=== PATIENT | female | born 1955 | race African-American/Black ===

== ENCOUNTER → 2017-01-22 | Outpatient (CLI) | payer OTHER ==
[2017-01-22 09:35] LABS: BASO % 1 % (0-3); EOS % 1 % (0-3); HEMATOCRIT 40.1 % (36.0-47.0); HEMOGLOBIN 13.4 g/dL (12.0-15.5); LYMPH # 1.3 x10^3/uL (1.0-4.8); LYMPH % 23 % (24-48); MEAN CORPUSCULAR HEMOGLOBIN 27 pg (25-35); MEAN CORPUSCULAR HGB CONC 34 g/dL (31-37); MEAN CORPUSCULAR VOLUME 81 fL (79-100); MONO % 4 % (0-9); NEUT % 72 % (31-73); PLATELET COUNT 247 x10^3/uL (140-400); RED BLOOD COUNT 4.95 x10^6/uL (3.50-5.40); RED CELL DISTRIBUTION WIDTH 14.6 % (11.5-14.5); WHITE BLOOD COUNT 5.5 x10^3/uL (4.0-11.0)
[2017-01-22 10:05] LABS: ALBUMIN 4.2 g/dL (3.4-5.0); ALBUMIN/GLOBULIN RATIO 0.9 (1.0-1.7); C-REACTIVE PROTEIN 1.6 mg/L (0-3.3); CALCIUM 9.6 mg/dL (8.5-10.1); GFR 68.4; POTASSIUM 3.7 mmol/L (3.5-5.1); TOTAL BILIRUBIN 0.3 mg/dL (0.2-1.0); TOTAL PROTEIN 8.8 g/dL (6.4-8.2)
== END | disposition home or self-care (01) ==
LOC: SPEC 09:20
PROVIDERS: ATTEND Internal Medicine Rheumatology
DX: Z79.899 Other long term (current) drug therapy (principal)
CPT/HCPCS: 36415; 80053; 85027; 85651; 86140

== ENCOUNTER → 2017-02-02 | Outpatient (CLI) | payer OTHER ==
[~2017-02-02] MED LIST: FOLI1TAB16 PO; HYDR200T5 PO; LISI1TAB3 PO; METH2.5T PO; NIFE10CA2 PO
[2017-02-05 16:15] LABS: ALPHA 1 0.1 g/dL (0.0-0.4); ALPHA 2 0.5 g/dL (0.4-1.0); BETA 0.9 g/dL (0.7-1.3); GAMMA 1.8 g/dL (0.4-1.8); M-SPIKE Not Observed g/dL (Not Observed); PROTEIN TOTAL 7.4 g/dL (6.0-8.5)
== END | disposition home or self-care (01) ==
LOC: SPEC 07:27
PROVIDERS: ATTEND Family Medicine
DX: R77.9 Abnormality of plasma protein, unspecified (principal)
CPT/HCPCS: 36415; 84165

== ENCOUNTER 2017-02-06 18:13 | Inpatient (IN) | payer OTHER ==
[~2017-02-06] VITALS: Ht 167.6 cm; Wt 67.3 kg
[2017-02-06] MEDS ORDERED: NITROGLYCERIN SUBLINGUAL 0.4 MG BOTTLE OF 25. SL PRN (18:45)
[2017-02-06] MEDS ORDERED: FENTANYL PF 100 MCG/2 ML VIAL. IV PRN (18:45)
[2017-02-06 18:50] LABS: BASO % 1 % (0-3); EOS % 2 % (0-3); HEMOGLOBIN 11.1 g/dL (12.0-15.5); LYMPH # 1.8 x10^3/uL (1.0-4.8); LYMPH % 32 % (24-48); MEAN CORPUSCULAR HEMOGLOBIN 28 pg (25-35); MEAN CORPUSCULAR HGB CONC 33 g/dL (31-37); MEAN CORPUSCULAR VOLUME 85 fL (79-100); MONO % 5 % (0-9); NEUT % 61 % (31-73); PLATELET COUNT 252 x10^3/uL (140-400); RED CELL DISTRIBUTION WIDTH 14.6 % (11.5-14.5); WHITE BLOOD COUNT 5.6 x10^3/uL (4.0-11.0)
[2017-02-06 18:53] LABS: POTASSIUM ISTAT 3.6 mmol/L (3.5-5.0)
[2017-02-06 18:59] LABS: PROTHROMBIN TIME PATIENT 12.9 SEC (11.7-14.0)
--- NOTE | 2017-02-06 19:17 | RAD ---
PROCEDURE CT brain without contrast HISTORY throbbing headaches and left arm tingling x 3 days, no priors TECHNIQUE Axial CT images were obtained of the brain without contrast. One or more of the following individualized dose reduction techniques were utilized for this examination: 1. Automated exposure control; 2. Adjustment of the mA and/or kV according to patient size; 3. Use of iterative reconstruction technique.One or more of the following individualized dose reduction techniques were utilized for this examination: 1. Automated exposure control; 2. Adjustment of the mA and/or kV according to patient size; 3. Use of iterative reconstruction technique. COMPARISON None FINDINGS There is no intracranial hemorrhage or mass. Ventricles are normal in size. There is no shift of the midline. An acute CVA is not identified. Visualized sinuses are clear. There are no abnormal areas of increased or decreased attenuation. IMPRESSION 1. No intracranial hemorrhage or mass or acute finding noted. Electronically signed by: Florian Nguyen MD (Feb 06, 2017 19:15:14)
[2017-02-06] MEDS ORDERED: IOHEXOL 300 MG/ML 75 ML VIAL IV ONE (20:00)
[2017-02-06] MEDS ORDERED: ASPIRIN 325 MG TABLET PO ONE (20:00)
--- NOTE | 2017-02-06 20:21 | ED.ADGEN ---
Past Medical History Past Medical History: Diverticulitis, Hypertension, Other Additional Past Medical Histor: LUPUS Past Surgical History: Hip Replacement, Hysterectomy, Other Additional Past Surgical Histo: RIGHT HIP , DNC, HERNIA REPAIR Alcohol Use: Occasionally Drug Use: None Adult General Chief Complaint Chief Complaint: CHEST PAIN HPI HPI Patient is a 61 year old woman, history of lupus, diverticulitis, who presents to the emergency department with complaint of left arm and chest pain, and headache associated with lightheadedness and dizziness. Patient states that over the past several days she's been experiencing a throbbing pain in her left arm, left chest, in her head, which she describes as a "whooshing" sensation in her ears, associated with lightheadedness. Denies any nausea, describes the pain in her arm and chest is a throbbing sensation and a tightening sensation, denies any palpitations, denies shortness of breath, any nausea, any vomiting, any fevers or chills, any focal weakness numbness or tingling. Denies any similar symptoms previously. Patient has a remote history of a DVT which is believed to be due to her underlying lupus that occurred in 1998. Is not currently on any anticoagulation. She had a stress test performed approximately 13 years ago. Has no history of cardiac disease. Denies any injuries, denies any syncope, states that she was feeling very dizzy, with worsening of the chest and arm pain that occurred this afternoon, the proper to come to the ED. Pain is been coming and going over the past several days. Some nasal congestion, Review of Systems Review of Systems Constitutional: Denies fever or chills. [] Eyes: Denies change in visual acuity. [] HENT: Denies nasal congestion or sore throat. [] Respiratory: Denies cough or shortness of breath. [] Cardiovascular: No edema, chest pain and left arm pain. GI: Denies abdominal pain, nausea, vomiting, bloody stools or diarrhea. [] : Denies dysuria. [] Musculoskeletal: Denies back pain or joint pain. [] Integument: Denies rash. [] Neurologic: Denies headache, focal weakness or sensory changes. [] Dizziness and frontal headache. Endocrine: Denies polyuria or polydipsia. [] Lymphatic: Denies swollen glands. [] Psychiatric: Denies depression or anxiety. [] Current Medications Current Medications Current Medications Medications (Trade) Dose Ordered Sig/Codi Start Time Stop Time Status Last Admin Dose Admin Aspirin (Carlos Aspirin) 325 mg 1X ONCE 02/06/17 20:00 02/06/17 20:01 DC 02/06/17 20:03 325 MG Fentanyl Citrate (Fentanyl 2ml Vial) 25 mcg PRN Q15MIN PRN 02/06/17 18:45 02/07/17 18:44 02/06/17 20:03 25 MCG Iohexol (Omnipaque 300 Mg/ml) 75 ml 1X ONCE 02/06/17 20:00 02/06/17 20:01 DC 02/06/17 20:12 75 ML Nitroglycerin (Nitrostat) 0.4 mg PRN Q5MIN PRN 02/06/17 18:45 02/07/17 18:44 Allergies Allergies Allergies Coded Allergies Type Severity Reaction Last Updated Verified Penicillins Allergy Unknown 02/06/17 Yes Physical Exam Physical Exam Constitutional: Well developed, well nourished, no acute distress, non-toxic appearance. [] HENT: Normocephalic, atraumatic, bilateral external ears normal, oropharynx moist, no oral exudates, nose normal. [] Eyes: PERRLA, EOMI, conjunctiva normal, no discharge. [] Neck: Normal range of motion, no tenderness, supple, no stridor. [] Cardiovascular:Heart rate regular rhythm, no murmur, S1, S2, rubs or gallops. [] Lungs & Thorax: Bilateral breath sounds clear to auscultation, no wheezing, rhonchi, rales. No chest tenderness or crepitus. Unable to reproduce symptoms with palpation. [] Abdomen: Bowel sounds normal, soft, no tenderness, no masses, no pulsatile masses. [] Skin: Warm, dry, no erythema, no rash. [] Back: No tenderness, no CVA tenderness. [] Extremities: No tenderness, no cyanosis, no clubbing, ROM intact, no edema. Negative Homans sign. [] Neurologic: Alert and oriented X 3, normal motor function, normal sensory function, no focal deficits noted. [Normal neurologic examination. Psychologic: Affect normal, judgement normal, mood normal. [] Current Patient Data Vital Signs Vital Signs Date Time Temp Pulse Resp B/P Pulse Ox O2 Delivery O2 Flow Rate FiO2 02/06/17 20:03 Room Air 02/06/17 19:43 70 147/74 100 02/06/17 18:16 98.1 18 98.1 Lab Values Laboratory Tests Test 02/06/17 18:39 02/06/17 18:42 02/06/17 18:44 02/06/17 18:51 White Blood Count 5.6x10^3/uL (4.0-11.0) Red Blood Count 4.00x10^6/uL (3.50-5.40) Hemoglobin 11.1g/dL (12.0-15.5) L Hematocrit 34.0% (36.0-47.0) L Mean Corpuscular Volume 85fL (79-100) Mean Corpuscular Hemoglobin 28pg (25-35) Mean Corpuscular Hemoglobin Concent 33g/dL (31-37) Red Cell Distribution Width 14.6% (11.5-14.5) H Platelet Count 252x10^3/uL (140-400) Neutrophils (%) (Auto) 61% (31-73) Lymphocytes (%) (Auto) 32% (24-48) Monocytes (%) (Auto) 5% (0-9) Eosinophils (%) (Auto) 2% (0-3) Basophils (%) (Auto) 1% (0-3) Neutrophils # (Auto) 3.4x10^3uL (1.8-7.7) Lymphocytes # (Auto) 1.8x10^3/uL (1.0-4.8) Monocytes # (Auto) 0.3x10^3/uL (0.0-1.1) Eosinophils # (Auto) 0.1x10^3/uL (0.0-0.7) Basophils # (Auto) 0.0x10^3/uL (0.0-0.2) Prothrombin Time 12.9SEC (11.7-14.0) Prothrombin Time INR 1.0 (0.8-1.1) Troponin I Quantitative 0.033ng/mL (0.000-0.055) CL-Wka-Z-Type Natriuretic Peptide 43pg/mL (0-124) Lipase 206U/L (73-393) POC Troponin I 0.00ng/ml (<0.08) POC Hemoglobin 11.9g/dL (12-15) L POC Hematocrit 35% (36-40) L POC Sodium 138mmol/L (135-145) POC Potassium 3.6mmol/L (3.5-5.0) POC Chloride 104mmol/L (98-110) POC Total CO2 21mmol/L (23-32) L Anion Gap 17mmol/L (6-14) H POC Blood Urea Nitrogen 19mg/dL (8-26) POC Creatinine 0.7mg/dL (0.5-1.4) Glucose Level 88mg/dL (70-99) POC Ionized Calcium (John) 1.10mmol/L (1.13-1.32) L D-Dimer (Perla) 0.52ug/mlFEU (0.00-0.50) H Laboratory Tests 02/06/17 18:39 Laboratory Tests 02/06/17 18:44 EKG EKG EC: Sinus rhythm, heart rate 68 bpm, upright axis, QTC of 400, TX 170, QRS of 84, contour abnormalities noted in the lateral leads, possible left ventricle hypertrophy, no prior for comparison. Abnormal ECG, does not meet STEMI criteria. As interpreted by me. [] Radiology/Procedures Radiology/Procedures Chest X-ray: One view: Normal cardiopulmonary silhouette, mild hyperinflation, no pneumothorax, no trichomoniasis or effusions, no soft tissue or bony abnormalities identified. [] Impressions: [facility] [id number] [place] [address] IMAGING REPORT Signed PATIENT: MART TAVERAS ACCOUNT: [id number] : 1955 LOCATION: ER AGE: 61 SEX: F EXAM STATUS: REG ER ORD. PHYSICIAN: JOSE PRABHAKAR DO REASON: HOYOS/Dizziness PROCEDURE: HEAD WO CONTRAST PROCEDURE CT brain without contrast HISTORY throbbing headaches and left arm tingling x 3 days, no priors TECHNIQUE Axial CT images were obtained of the brain without contrast. One or more of the following individualized dose reduction techniques were utilized for this examination: 1. Automated exposure control; 2. Adjustment of the mA and/or kV according to patient size; 3. Use of iterative reconstruction technique.One or more of the following individualized dose reduction techniques were utilized for this examination: 1. Automated exposure control; 2. Adjustment of the mA and/or kV according to patient size; 3. Use of iterative reconstruction technique. COMPARISON None FINDINGS There is no intracranial hemorrhage or mass. Ventricles are normal in size. There is no shift of the midline. An acute CVA is not identified. Visualized sinuses are clear. There are no abnormal areas of increased or decreased attenuation. IMPRESSION 1. No intracranial hemorrhage or mass or acute finding noted. Electronically signed by: Florian Nguyen MD (Feb 06, 2017 19:15:14) DICTATED and SIGNED BY: FLORIAN NGUYEN MD DATE: 02/06/171914 CC: NOMI DAVIS; JOSE PRABHAKAR DO ~ Course & Med Decision Making Course & Med Decision Making Pertinent Labs and Imaging studies reviewed. (See chart for details) Due to patient's history of lupus and DVT, d-dimer was ordered along with chest x-ray, ECG, and laboratory studies including troponin. D-dimer was slightly elevated 0.5 to, therefore if discussion with patient, CT of the chest was ordered to rule out PE. This was negative for PE or other abnormality. Patient' s ECG rhythm evidence of left hypertrophy, but no other acutely concerning findings. Troponin was negative. I did discuss these findings with patient, based on her persistent symptoms, and worsening symptoms, as she is not previously had a cardiac evaluation for the past more than 10 years, she is agreeable for admission to the hospital for cardiac evaluation and continued monitoring. Findings as above discussed with Dr. Cee of internal medicine, patient accepted to his service as a full admission to the medical telemetry floor, consultation placed for Dr. Cagle of cardiology. Bridge orders entered per discussion. Patient remained stable and comfortable during her ED course. Dragon Disclaimer Dragon Disclaimer This electronic medical record was generated, in whole or in part, using a voice recognition dictation system. Departure Impression: Primary Impression: Chest pain Disposition: ADMITTED INPATIENT Admitting Physician: Wendy Cee Condition: IMPROVED JOSE PRABHAKAR DO Feb 06, 2017 20:21
--- NOTE | 2017-02-06 20:53 | RAD ---
PROCEDURE CT angiogram chest. HISTORY Chest pressure and left arm tingling for 3 days. Previous DVT. Lupus. TECHNIQUE Axial images and coronal and sagittal maximum intensity projection re-formatted images are provided. 75 milliliters of intravenous Omnipaque 300 was administered without complication. One or more of the following individualized dose reduction techniques were utilized for this exam: 1. Automated exposure control. 2. Adjustment of the mA and/or kV according to patient's size. 3. Use of iterative reconstruction technique. COMPARISON None provided. FINDINGS The contrast bolus is satisfactory. There is no filling defect to suggest pulmonary embolism. There is minimal atheromatous disease in the abdominal aorta without aneurysm. The heart is not enlarged. There is no hilar or mediastinal adenopathy. There are calcified right hilar lymph nodes. Central airways are patent. There is dependent atelectasis. There is no pleural effusion. There is no consolidation. There is minimal presumed apical scarring. 5 millimeter pulmonary nodule is noted along the minor fissure on image 94. Calcified granuloma is noted in the right middle lobe. There are minimal degenerative changes in the spine. IMPRESSION 1. Negative for pulmonary embolism. 2. Pulmonary nodule for which follow up per Fleischner society would be recommended. Per 2017 guidelines, low risk patient requires no additional workup. High risk patient recommendations are consideration of 12 month follow-up. Electronically signed by: Mathew Guardado MD (Feb 06, 2017 20:51:37)
[2017-02-06] MEDS ORDERED: MORPHINE IR 15 MG TABLET PO PRN (23:15)
--- NOTE | 2017-02-06 23:19 | PDOC1 ---
History and Physical Date of Admission Date of Admission DATE: 02/06/17 TIME: 23:14 Identification/Chief Complaint Chief Complaint headache, chest pain, arm pain Source Source: Chart review, Patient History of Present Illness History of Present Illness Ms De Los Santos is a 61 year old woman admti from emergency department with complaint of left arm and chest pain, and headache. HOYOS has been new, "throbbing" and when HOYOS on, she has had "whooshing" sound in her left ear, and left arm pain and tightness. Left arm feels like it has a BP cuff on, may be worsened with exertion and associated with lightheadedness and dizziness. 3 days of problems, no new stress, maybe worse when out. 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 Thakur remote DVT due to lupus that occurred in 1998. normal stress test 13 years ago. Past Medical History Past Medical History , history of lupus, diverticulitis, htn Cardiovascular: HTN Pulmonary: No pertinent hx CENTRAL NERVOUS SYSTEM: Other (none) GI: No pertinent hx Heme/Onc: No pertinent hx Hepatobiliary: No pertinent hx Psych: No pertinent hx Rheumatologic: Other (LUPUS) Infectious disease: No pertinent hx ENT: No pertinent hx Renal/: No pertinent hx Endocrine: No pertinent hx Dermatology: No pertinent hx Past Surgical History Past Surgical History , works here in Lab Past Surgical History: No pertinent history Social History Smoke: No ALCOHOL: none Current Problem List Problem List Problems Medical Problems: (1) Chest pain Status: Acute Problems: Current Medications Current Medications Current Medications Nitroglycerin (Nitrostat) 0.4 mg PRN Q5MIN PRN SL CP RATING > 1/10; Start 02/06 at 18:45; Stop 02/07/17 at 18:44 Fentanyl Citrate (Fentanyl 2ml Vial) 25 mcg PRN Q15MIN PRN IV PAIN GREATER THAN 3/10 Last administered on 02/06/17 20:03; Start 02/06/17 at 18:45; Stop at 18:44 Aspirin (Carlos Aspirin) 325 mg 1X ONCE PO Last administered on 02/06/17 20:03 ; Start 02/06/17 at 20:00; Stop 02/06/17 at 20:01; Status DC Iohexol (Omnipaque 300 Mg/ml) 75 ml 1X ONCE IV Last administered on 3/21/17at 20:12; Start 02/06/17 at 20:00; Stop 02/06/17 at 20:01; Status DC Allergies Allergies: Coded Allergies: Penicillins (Verified Allergy, Intermediate, 02/07/17) ROS General: No: Appetite, Chills, Fatigue, Malaise, Night Sweats, Other PSYCHOLOGICAL ROS: No: Anxiety, Behavioral Disorder, Concentration difficultie , Decreased libido, Depression, Disorientation, Hallucinations, Hostility, Irritablity, Memory difficulties, Mood Swings, Obsessive thoughts, Other, Physical abuse, Sexual abuse, Sleep disturbances, Suicidal ideation Eyes: No Blurry vision, No Decreased vision, No Double vision, No Dry eyes, No Excessive tearing, No Eye Pain, No Itchy Eyes, No Loss of vision, No Other, No Photophobia, No Scotomata, No Uses contacts, No Uses glasses HEENT: YES: Heacaches, Hearing change (rushing in left ear when headache is bad ), Vertigo, No: Epistaxis, Nasal congestion, Nasal discharge, Oral lesions, Other, Sinus pain, Sneezing, Snoring, Sore Throat, Tinnitus, Visual Changes, Vocal changes Hematological and Lymphatic: YES: Other (blood clot remote), No: Bleeding Problems, Blood Transfusions, Brusing, Night Sweats, Pallor, Swollen Lymph Nodes Respiratory: No: Cough, Hemoptysis, Orthopnea, Other, Pleuritic Pain, SOB with excertion, Shortness of breath, Sputum Changes, Stridor, Tachypnea, Wheezing Cardiovascular: yes Chest Pain, No Edema, No Lt Headedness, No Orthopnea, No Other, No Palpitations, No Paroxysmal Noc. Dyspnea Gastrointestinal: No Abdominal Pain, No Constipation, No Diarrhea, No Hematochezia, No Melena, No Nausea, No Other, No Vomiting Genitourinary: No , No , No , No , No , No , No , No Discharge, No Dysuria, No Flank Pain, No Frequency, No Hematuria, No Incontinence, No Other, No Pain, No Retention, No Urgency Musculoskeletal: Yes Muscular Weakness, Yes Pain In: (left arm), No Gait Disturbance, No Joint Pain, No Joint Stiffness, No Joint Swelling, No Muscle Pain, No Other, No Swelling In: Neurological: Yes Headaches, Yes Numbness/Tingling, No Behavorial Changes, No Bowel/Bladder ControlChng, No Confusion, No Dizziness, No Gait Disturbance, No Impaired Coord/balance, No Memory Loss, No Other, No Seizures, No Speech Problems, No Tremors, No Visual Changes, No Weakness Skin: No Acne, No Dry Skin, No Eczema, No Hair Changes, No Lumps, No Mole Changes, No Mottling, No Nail Changes, No Other, No Pruritus, No Rash, No Skin Lesion Changes Physical Exam General: Alert, Oriented X3, Cooperative, No acute distress HEENT: Atraumatic, PERRLA, EOMI, Mucous membr. moist/pink Lungs: Clear to auscultation, Normal air movement Heart: S1S2, no gallops, no murmurs Abdomen: Normal bowel sounds, Soft Rectal Exam: not examined Extremities: No clubbing, No edema, Normal pulses Skin: No rashes Neuro: Normal gait, Normal speech Psych/Mental Status: Mental status NL, Mood NL Vitals Vitals Vital Signs Date Time Temp Pulse Resp B/P Pulse Ox O2 Delivery O2 Flow Rate FiO2 02/06/17 22:43 68 19 169/71 99 Room Air 02/06/17 18:16 98.1 98.1 Labs Labs Laboratory Tests Test 02/06/17 18:39 02/06/17 18:42 02/06/17 18:44 02/06/17 18:51 White Blood Count 5.6x10^3/uL (4.0-11.0) Red Blood Count 4.00x10^6/uL (3.50-5.40) Hemoglobin 11.1g/dL (12.0-15.5) Hematocrit 34.0% (36.0-47.0) Mean Corpuscular Volume 85fL (79-100) Mean Corpuscular Hemoglobin 28pg (25-35) Mean Corpuscular Hemoglobin Concent 33g/dL (31-37) Red Cell Distribution Width 14.6% (11.5-14.5) Platelet Count 252x10^3/uL (140-400) Neutrophils (%) (Auto) 61% (31-73) Lymphocytes (%) (Auto) 32% (24-48) Monocytes (%) (Auto) 5% (0-9) Eosinophils (%) (Auto) 2% (0-3) Basophils (%) (Auto) 1% (0-3) Neutrophils # (Auto) 3.4x10^3uL (1.8-7.7) Lymphocytes # (Auto) 1.8x10^3/uL (1.0-4.8) Monocytes # (Auto) 0.3x10^3/uL (0.0-1.1) Eosinophils # (Auto) 0.1x10^3/uL (0.0-0.7) Basophils # (Auto) 0.0x10^3/uL (0.0-0.2) Prothrombin Time 12.9SEC (11.7-14.0) Prothromb Time International Ratio 1.0 (0.8-1.1) Troponin I Quantitative 0.033ng/mL (0.000-0.055) PL-Egv-B-Type Natriuretic Peptide 43pg/mL (0-124) Lipase 206U/L (73-393) Bedside Troponin I 0.00ng/ml (<0.08) Bedside Hemoglobin 11.9g/dL (12-15) Bedside Hematocrit 35% (36-40) Bedside Sodium 138mmol/L (135-145) Bedside Potassium 3.6mmol/L (3.5-5.0) Bedside Chloride 104mmol/L (98-110) Bedside Total CO2 21mmol/L (23-32) Anion Gap 17mmol/L (6-14) Bedside Blood Urea Nitrogen 19mg/dL (8-26) Bedside Creatinine 0.7mg/dL (0.5-1.4) Glucose Level 88mg/dL (70-99) Bedside Ionized Calcium (John) 1.10mmol/L (1.13-1.32) D-Dimer (Perla) 0.52ug/mlFEU (0.00-0.50) Laboratory Tests Test 02/06/17 18:39 02/06/17 18:42 02/06/17 18:44 02/06/17 18:51 White Blood Count 5.6x10^3/uL (4.0-11.0) Red Blood Count 4.00x10^6/uL (3.50-5.40) Hemoglobin 11.1g/dL (12.0-15.5) Hematocrit 34.0% (36.0-47.0) Mean Corpuscular Volume 85fL (79-100) Mean Corpuscular Hemoglobin 28pg (25-35) Mean Corpuscular Hemoglobin Concent 33g/dL (31-37) Red Cell Distribution Width 14.6% (11.5-14.5) Platelet Count 252x10^3/uL (140-400) Neutrophils (%) (Auto) 61% (31-73) Lymphocytes (%) (Auto) 32% (24-48) Monocytes (%) (Auto) 5% (0-9) Eosinophils (%) (Auto) 2% (0-3) Basophils (%) (Auto) 1% (0-3) Neutrophils # (Auto) 3.4x10^3uL (1.8-7.7) Lymphocytes # (Auto) 1.8x10^3/uL (1.0-4.8) Monocytes # (Auto) 0.3x10^3/uL (0.0-1.1) Eosinophils # (Auto) 0.1x10^3/uL (0.0-0.7) Basophils # (Auto) 0.0x10^3/uL (0.0-0.2) Prothrombin Time 12.9SEC (11.7-14.0) Prothromb Time International Ratio 1.0 (0.8-1.1) Troponin I Quantitative 0.033ng/mL (0.000-0.055) RA-Tvy-H-Type Natriuretic Peptide 43pg/mL (0-124) Lipase 206U/L (73-393) Bedside Troponin I 0.00ng/ml (<0.08) Bedside Hemoglobin 11.9g/dL (12-15) Bedside Hematocrit 35% (36-40) Bedside Sodium 138mmol/L (135-145) Bedside Potassium 3.6mmol/L (3.5-5.0) Bedside Chloride 104mmol/L (98-110) Bedside Total CO2 21mmol/L (23-32) Anion Gap 17mmol/L (6-14) Bedside Blood Urea Nitrogen 19mg/dL (8-26) Bedside Creatinine 0.7mg/dL (0.5-1.4) Glucose Level 88mg/dL (70-99) Bedside Ionized Calcium (John) 1.10mmol/L (1.13-1.32) D-Dimer (Perla) 0.52ug/mlFEU (0.00-0.50) Images Images CT chest 5mm nodule Ct head - neg VTE Prophylaxis Ordered VTE Prophylaxis Devices: No VTE Pharmacological Prophylaxi: Yes Assessment/Plan Assessment/Plan chest pain at rest. some reproducible, trop ordered in ER, will admit obs. sensation of tightness to left arm, anginal equivalent, CV consult Lupus, higher risk, no pert fam hx headache, migranous, with aural aura, parathesia to left arm, consult Neuro, Hx DVT, almost 20 years ago, proph lovenox only YING FRANK MD Feb 06, 2017 23:19
[2017-02-06] MEDS ORDERED: HYDR200T5 PO (23:30)
[2017-02-06] MEDS ORDERED: LISI1TAB3 PO (23:30)
[2017-02-06] MEDS ORDERED: NIFE10CA2 PO (23:30)
[2017-02-06] MEDS ORDERED: FOLI1TAB16 PO (23:30)
[2017-02-06] MEDS ORDERED: METH2.5T PO (23:32)
[2017-02-07] MEDS ORDERED: ONDANSETRON PF 4 MG/2 ML VIAL. IV PRN
--- NOTE | 2017-02-07 00:08 | ACF ---
Admission Forms Criteria CARDIOLOGY GRG Clinical Indications for Admission to Inpatient Care ( Place 'X' for any and all applicable criteria): Hospital admission is needed for appropriate care of the patient because of ANY ONE of the following (1): [ ] I. Hemodynamic instability as indicated by ALL of the following (1)(2)(3) (4)(5) [ ]a) Vital signs or other findings not as expected for chronic patient condition or baseline [ ]b) Instability indicated by ANY ONE of the following: [ ]i) Hypotension [ ]ii) Symptomatic Tachycardia unresponsive to treatment ( e.g., analgesia, fluids, sedation as indicated) [ ]iii) Inadequate perfusion indicated by ANY ONE of the following: [ ] 1) Lactic acidosis (> 2 mmol/L) [ ] 2) New abnormal capillary refill (> 3 seconds) [ ] 3) Reduced urine output [ ] 4) New altered mental status [ ]iv) Orthostatic vital sign changes unresponsive to treatment (e.g., fluids) [ ]v) IV inotropic or vasopressor medication required to maintain adequate blood pressure or perfusion [ ] II. Severe heart failure as indicated by ANY ONE of the following(17)(18) [ ]a) Respiratory distress [ ]b) Hypotension [ ]c) Anasarca (refractory to outpatient therapy) [ ]d) Cardiac arrhythmias of immediate concern [ ]e) Myocardial ischemia [ ] III. Cardiac arrhythmias or findings of immediate concern indicated by ANY ONE of the following (19)(20): [ ] a) Heart rhythms that are inherently dangerous or unstable indicated by ANY ONE of the following (21)(22)(23): [ ] i) Resuscitated ventricular fibrillation or cardiac arrest [ ] ii) Ventricular escape rhythm [ ] iii) Sustained ventricular tachycardia (30 seconds or more of ventricular rhythm at greater than 100 beats per minute) [ ] iv) Nonsustained ventricular tachycardia and ANY ONE of the following: [ ] 1) Suspected cardiac ischemia as cause or consequence of ventricular tachycardia [ ] 2) In setting of acute myocarditis [ ] b) Unstable cardiac conduction defects indicated by ANY ONE of the following(23)(24)(25) [ ] i) Type II second-degree atrioventricular block [ ]ii) Third-degree atrioventricular block [ ]iii) New-onset left bundle branch block with suspected myocardial ischemia [ ]c) Any heart rhythm and ANY ONE of the following (21)(22)(26)(27) (28) [ ] i) Continuous long-term ECG monitoring needed (e.g., initiation of drug requiring monitoring for more than 24 hours) [ ] ii) Patient has automatic implanted cardioverter defibrillator that is repeatedly firing, malfunctioning, or in need of immediate adjustment of settings beyond the scope of ambulatory or observation care [ ]d) Heart rhythms of concern due to ANY ONE of the following: [ ] i) Hypotension [ ] ii) Respiratory distress [ ] iii) Association with other significant symptoms (e.g., bradycardia with syncope or ongoing dizziness, supraventricular tachycardia with chest pain (14)(15)(17) [ ] IV. Monitoring for cardiac contusion beyond the scope of observation care needed [A](30)(31)(32) [ ] V. Surgical or device complication (e.g., valve replacement complication , pacemaker dysfunction) (35)(41)(44)(45)(46) [ ] . Inpatient palliative care needed. [B](49) Also use Inpatient Palliative Care Criteria [ ] VII. Nonbacterial thrombotic (marantic) endocarditis (36)(43)(47)(48) [X] VIII. Cardiology condition, symptom, or finding for which emergency and observation care has failed or are not considered appropriate. [ ] IX. Acute valvular disease requiring inpatient as indicated by ANY ONE of the following (41) [ ]a) Acute valvular regurgitation (42) [ ]b) Noninfectious valvulitis (43) [ ]c) Obstructive valve thrombosis [ ]d) Paravalvular leak [ ]e) Other significant valvular disorder remaining after emergency or observation level of care (as appropriate) [ ]X. Pericardial disease requiring inpatient treatment as indicated by ANY ONE of the following (33)(34)(35)(36)(37) [ ]a) Suspected tamponade (38)(39)(40) [ ]b) Hemopericardium [ ]c) Other significant pericardial disorder remaining after emergency or observation level of care (as appropriate) [ ] XI. Cardiac ischemia beyond scope of emergency and observation care. [ ] XII. Hypertension requiring inpatient treatment as indicated by ANY ONE of the following (6)(7)(8) [ ]a) SBP greater than 220 mm Hg or DBP greater than 120 mmHg despite treatment [ ]b) SBP greater than 140 mm Hg or DBP greater than 100 mm Hg with evidence of acute end organ damage as indicated by ANY ONE of the following [ ] i) Encephalopathy [ ] ii) Acute renal failure as indicated by new onset of ANY ONE of the following (9)(10)(11)(12)(13) [ ]1) 3-fold rise in serum creatinine from baseline [ ]2) Serum creatinine greater than 4 mg/dL ( 354 micromoles/L) with acute rise greater than 0.5 mg/dL (44.2 micromoles/L) [ ]3) Reduction of more than 75% in estimated glomerular filtration rate from baseline [ ]4) Estimated glomerular filtration rate less than 35 mL/min/1.73m2 (0.59 mL/sec/1.73m2) in child up to 18 years of age [ ]5) Cessation of urine output indicated by ALL of the following [ ]A. Adequate volume status [ ]B. Inadequate urine output as indicated by ANY ONE of the following [ ]a. Urine output less than 0.3 mL/kg/hr for 24 hours [ ]b. Anuria (urine output less than 0.1 mL/kg/hr) for 12 hours [ ] iii) Aortic dissection [ ] iv) Myocardial Ischemia [ ] v) Left ventricular heart failure [ ]vi) Retinal Hemorrhage [ ]vii) Other significant finding [ ]c) Hypertension in child requiring inpatient treatment as indicated by ALL of the following(14)(15)(16) [ ] i) Outpatient treatment not effective, not available, or not appropriate [ ]ii) SBP or DBP greater than 95th percentile for age [ ]iii) Evidence of acute end organ damage as indicated by ANY ONE of the following [ ]1) Altered mental status [ ]2) Acute renal failure as indicated by new onset of ANY ONE of the following(9)(10)(11)(12)(13) [ ]A. 3-fold rise in serum creatinine from baseline [ ]B. Serum creatinine greater than 4 mg/dL (354 micromoles/L) with acute rise greater than 0.5 mg/dL (44.2 micromoles/L) [ ]C. Reduction of more than 75% in estimated glomerular filtration rate from baseline [ ]D. Estimated glomerular filtration rate less than 35 mL/min/1.73m2 (0.59 mL/sec/1.73m2) in child up to 18 years of age [ ]E. Cessation of urine output indicated by ALL of the following [ ]a. Adequate volume status [ ]b. Inadequate urine output as indicated by ANY ONE of the following [ ]i) Urine output less than 0.3 mL/kg/hr for 24 hours [ ]ii) Anuria ( urine output less than 0.1 mL/kg/hr) for 12 hours [ ]3) Severe headache [ ]4) Visual disturbance [ ]5) Retinal hemorrhage [ ]6) Other significant finding [ ]XIII. Complications of transplanted heart indicated by ANY ONE of the following(61): [ ]a) Acute graft rejection requiring inpatient management (eg, intravenous immunosuppression)(62)(63) [ ]b) Acute graft heart failure indicated by ANY ONE of the following(64): [ ]i) Hemodynamic instability [ ]ii) Cardiac arrhythmias of immediate concern [ ]iii) Pulmonary edema that is very severe (eg, mechanical ventilation needed, imminent or likely, need for 100% oxygen to keep oxygen saturation above 90%) [ ]iv) Pulmonary edema that is persistent as indicated by ALL of the following: [ ]1) New need for oxygen therapy to keep oxygen saturation above 90% (or increased FiO2 need from baseline) [ ]2) Has not improved sufficiently with emergency department or observation care IV diuretics or other heart failure treatments[E] [ ]v) Altered mental status that is severe or persistent [ ]vi) Increased creatinine (new on laboratory test) with reduction of more than 50% in estimated glomerular filtration rate from baseline [ ]vii) Progressively (ongoing) rising creatinine (known from past laboratory test) with reduction of more than 25% in estimated glomerular filtration rate from baseline [ ]viii) Acute renal failure [ ]ix) Acute peripheral ischemia (eg, examination shows pulseless, cool, mottled, or cyanotic extremity) [ ]x) Pulmonary artery catheter monitoring needed [ ]xi) Other sign or symptom of heart failure requiring inpatient treatment (ie, too severe or not responsive to outpatient and observation care treatment) [ ]c) Infection requiring inpatient management (eg, Hemodynamic instability, need for intravenous antimicrobial treatment)(66)(67)(68)(69)(70) [ ]d) Cardiac allograft vasculopathy requiring inpatient management ( eg evidence of cardiac ischemia)(71) [ ]e) Other complication of transplanted heart (eg, stroke, severe pulmonary hypertension, severe valvular dysfunction) requiring inpatient management(72) The original [facility] content created by [facility] has been revised. The portions of the content which have been revised are identified through the use of italic text or in bold, and [facility] has neither reviewed nor approved the modified material. All other unmodified content is copyright [facility]. Please see references footnoted in the original [facility] edition 2016 Admission Criteria Met?: Yes JAE COWAN Feb 07, 2017 00:08
[2017-02-07 00:41] VITALS: BP 117/59
[2017-02-07 03:00] VITALS: BP 111/58
[2017-02-07 05:27] LABS: BASO % 1 % (0-3); EOS % 3 % (0-3); HEMATOCRIT 33.7 % (36.0-47.0); HEMOGLOBIN 11.1 g/dL (12.0-15.5); LYMPH # 1.4 x10^3/uL (1.0-4.8); LYMPH % 33 % (24-48); MEAN CORPUSCULAR HEMOGLOBIN 28 pg (25-35); MEAN CORPUSCULAR HGB CONC 33 g/dL (31-37); MEAN CORPUSCULAR VOLUME 85 fL (79-100); MONO % 5 % (0-9); NEUT % 59 % (31-73); PLATELET COUNT 236 x10^3/uL (140-400); RED BLOOD COUNT 3.96 x10^6/uL (3.50-5.40); RED CELL DISTRIBUTION WIDTH 14.6 % (11.5-14.5); WHITE BLOOD COUNT 4.2 x10^3/uL (4.0-11.0)
[2017-02-07 05:59] LABS: ALBUMIN 3.5 g/dL (3.4-5.0); CALCIUM 8.8 mg/dL (8.5-10.1); CREATININE 0.7 mg/dL (0.6-1.0); GFR 103.3; POTASSIUM 4.1 mmol/L (3.5-5.1); TOTAL BILIRUBIN 0.4 mg/dL (0.2-1.0); TOTAL PROTEIN 6.9 g/dL (6.4-8.2)
[2017-02-07 06:00] LABS: CHOLESTEROL/HDL RATIO 2.8
--- NOTE | 2017-02-07 06:28 | EKG ---
[facility] [address] [place] [address] Test Date: 2017-02-06 Test Time: 18:17:34 Pat Name: MART TAVERAS Department: Room: Gender: F Production Control Supervisor: : [id number] Requested By: JOSE PRABHAKAR Order Number: [id number] Reading MD: Measurements Intervals [place] Rate: 68 P: 112 SC: 170 QRS: 134 QRSD: 84 T: 136 QT: 372 QTc: 400 Interpretive Statements SINUS RHYTHM LEFT ATRIAL ABNORMALITY ABNORMAL RIGHT AXIS DEVIATION AMPLITUDE CRITERIA FOR LVH QRS(T) CONTOUR ABNORMALITY CONSISTENT WITH HIGH LATERAL INFARCT AGE UNDETERMINED ABNORMAL ECG RI6.01 No previous ECG available for comparison
[2017-02-07 07:00] VITALS: BP 124/73
--- NOTE | 2017-02-07 08:37 | RAD ---
Portable chest, 02/06/2017: History: Left-sided chest pain Comparison is made to a study from 03/20/2005. The heart size and pulmonary vascularity are normal. No pulmonary infiltrates are seen. There is no evidence of pleural fluid. IMPRESSION: No acute cardiopulmonary abnormality is detected.
[2017-02-07] MEDS: HYDROXYCHLOROQUINE 200 MG TABLET PO SCH (08:53)
[2017-02-07] MEDS: HYDROCHLOROTHIAZIDE 12.5 MG CAPSULE. PO SCH (08:53)
[2017-02-07] MEDS: SUMATRIPTAN SUCCINATE 25 MG TABLET. PO PRN ×2 (08:53→21:42)
[2017-02-07] MEDS: ENOXAPARIN 40 MG/0.4 ML DISP.SYRIN. SQ SCH (08:53)
[2017-02-07] MEDS: FOLIC ACID 1 MG TABLET PO SCH (08:54)
[2017-02-07] MEDS: NIFEDIPINE ER 30 MG TAB.ER.24H PO SCH (08:54)
[2017-02-07] MEDS: LISINOPRIL 10 MG TABLET PO SCH (08:54)
--- NOTE | 2017-02-07 09:46 | PDOC2 ---
HUGO PATIÑO ORACLE APPLICATIONS ANALYST 02/07/17 0946: CARDIAC CONSULT DATE OF CONSULT Date of Consult DATE: 02/07/17 TIME: 09:45 REASON FOR CONSULT Reason for Consult: chest pain REFERRING PHYSICIAN Referring Physician: Dr. Wendy Cee SOURCE Source: Chart review, Patient HISTORY OF PRESENT ILLNESS HISTORY OF PRESENT ILLNESS 61 year old female with a 3 day history of left chest, left arm and left shoulder pain which originally started at work without clear exacerbating or alleviating factors. Pain has been constant and started as a squeezing sensation in the left arm, similar to a blood pressure cuff inflation. Pain intermittently radiates into the back as well. She reports a "tired, winded" feeling with the pain. No nausea or diaphoresis. Yesterday she developed a headache associated with a "whooshing' sensation and presented to the ER. With the headache she was dizzy. EKG without acute changes and troponin levels not consistent with AMI. Had a negative stress test 13-15 years ago. D-dimer elevated and CTa of chest negative for pulmonary embolus, though with 5 mm nodule Reason for Visit: chest pain PAST MEDICAL HISTORY Cardiovascular: HTN Pulmonary: Asthma GI: Diverticulosis, GERD Heme/Onc: Other (DVT in LLE in 1990s) Musculoskeletal: Osteoarthritis Rheumatologic: Other (SLE) PAST SURGICAL HISTORY Past Surgical History: Appendectomy, Hernia Repair, Total hip replacement ( right), Hysterectomy, Other (D & C) FAMILY HISTORY Family History: Heart Disease (maternal GM) SOCIAL HISTORY Social History works in [employer] @ [employer] Smoke: No ALCOHOL: none Drugs: None CURRENT MEDICATIONS CURRENT MEDICATIONS Current Medications Medications (Trade) Dose Ordered Sig/Codi Route PRN Reason Start Time Stop Time Status Last Admin Dose Admin Fentanyl Citrate (Fentanyl 2ml Vial) 25 mcg PRN Q15MIN PRN IV PAIN GREATER THAN 3/10 02/06/17 18:45 02/07/17 18:44 02/06/17 20:03 Aspirin (Carlos Aspirin) 325 mg 1X ONCE PO 02/06/17 20:00 02/06/17 20:01 DC 02/06/17 20:03 Iohexol (Omnipaque 300 Mg/ml) 75 ml 1X ONCE IV 02/06/17 20:00 02/06/17 20:01 DC 02/06/17 20:12 Sumatriptan Succinate (Imitrex) 50 mg PRN Q2HR PRN PO MIGRAINE HEADACHE 02/06/17 23:15 02/07/17 08:53 Hydroxychloroquine Sulfate (Plaquenil) 200 mg DAILY PO 02/07/17 09:00 02/07/17 08:53 Enoxaparin Sodium (Lovenox 40mg Syringe) 40 mg DAILY SQ 02/07/17 09:00 02/07/17 08:53 Folic Acid (Folic Acid) 1 mg DAILY PO 02/07/17 09:00 02/07/17 08:54 Nifedipine (Procardia Xl) 30 mg DAILY PO 02/07/17 09:00 02/07/17 08:54 Lisinopril (Prinivil) 10 mg DAILY PO 02/07/17 09:00 02/07/17 08:54 Hydrochlorothiazide (Microzide) 12.5 mg DAILY PO 02/07/17 09:00 02/07/17 08:53 ALLERGIES ALLERGIES: Coded Allergies: Penicillins (Verified Allergy, Intermediate, 02/07/17) ROS Review of System 14 point review with pertinent positives in [place] PHYSICAL EXAM General: Alert, Oriented X3, Cooperative, No acute distress HEENT: Atraumatic, PERRLA Lungs: Clear to auscultation, Normal air movement Heart: Regular rate, Normal S1, Normal S2, No murmurs, Other (no carotid bruits ; pain not reproducible) Abdomen: Normal bowel sounds, Soft Extremities: No clubbing, No edema, Normal pulses Skin: No rashes Neuro: Normal speech Psych/Mental Status: Mental status NL, Mood NL MUSCULOSKELETAL: No deformity VITALS VITALS Vital Signs Date Time Temp Pulse Resp B/P Pulse Ox O2 Delivery O2 Flow Rate FiO2 02/07/17 08:54 61 111/58 02/07/17 07:00 98.3 19 100 Room Air 98.3 LABS Lab: Laboratory Tests Test 02/06/17 18:39 02/06/17 18:42 02/06/17 18:44 02/06/17 18:51 White Blood Count 5.6x10^3/uL (4.0-11.0) Red Blood Count 4.00x10^6/uL (3.50-5.40) Hemoglobin 11.1g/dL (12.0-15.5) Hematocrit 34.0% (36.0-47.0) Mean Corpuscular Volume 85fL (79-100) Mean Corpuscular Hemoglobin 28pg (25-35) Mean Corpuscular Hemoglobin Concent 33g/dL (31-37) Red Cell Distribution Width 14.6% (11.5-14.5) Platelet Count 252x10^3/uL (140-400) Neutrophils (%) (Auto) 61% (31-73) Lymphocytes (%) (Auto) 32% (24-48) Monocytes (%) (Auto) 5% (0-9) Eosinophils (%) (Auto) 2% (0-3) Basophils (%) (Auto) 1% (0-3) Neutrophils # (Auto) 3.4x10^3uL (1.8-7.7) Lymphocytes # (Auto) 1.8x10^3/uL (1.0-4.8) Monocytes # (Auto) 0.3x10^3/uL (0.0-1.1) Eosinophils # (Auto) 0.1x10^3/uL (0.0-0.7) Basophils # (Auto) 0.0x10^3/uL (0.0-0.2) Prothrombin Time 12.9SEC (11.7-14.0) Prothromb Time International Ratio 1.0 (0.8-1.1) Troponin I Quantitative 0.033ng/mL (0.000-0.055) RZ-Pap-N-Type Natriuretic Peptide 43pg/mL (0-124) Lipase 206U/L (73-393) Bedside Troponin I 0.00ng/ml (<0.08) Bedside Hemoglobin 11.9g/dL (12-15) Bedside Hematocrit 35% (36-40) Bedside Sodium 138mmol/L (135-145) Bedside Potassium 3.6mmol/L (3.5-5.0) Bedside Chloride 104mmol/L (98-110) Bedside Total CO2 21mmol/L (23-32) Anion Gap 17mmol/L (6-14) Bedside Blood Urea Nitrogen 19mg/dL (8-26) Bedside Creatinine 0.7mg/dL (0.5-1.4) Glucose Level 88mg/dL (70-99) Bedside Ionized Calcium (John) 1.10mmol/L (1.13-1.32) D-Dimer (Perla) 0.52ug/mlFEU (0.00-0.50) Test 02/07/17 04:30 White Blood Count 4.2x10^3/uL (4.0-11.0) Red Blood Count 3.96x10^6/uL (3.50-5.40) Hemoglobin 11.1g/dL (12.0-15.5) Hematocrit 33.7% (36.0-47.0) Mean Corpuscular Volume 85fL (79-100) Mean Corpuscular Hemoglobin 28pg (25-35) Mean Corpuscular Hemoglobin Concent 33g/dL (31-37) Red Cell Distribution Width 14.6% (11.5-14.5) Platelet Count 236x10^3/uL (140-400) Neutrophils (%) (Auto) 59% (31-73) Lymphocytes (%) (Auto) 33% (24-48) Monocytes (%) (Auto) 5% (0-9) Eosinophils (%) (Auto) 3% (0-3) Basophils (%) (Auto) 1% (0-3) Neutrophils # (Auto) 2.5x10^3uL (1.8-7.7) Lymphocytes # (Auto) 1.4x10^3/uL (1.0-4.8) Monocytes # (Auto) 0.2x10^3/uL (0.0-1.1) Eosinophils # (Auto) 0.1x10^3/uL (0.0-0.7) Basophils # (Auto) 0.0x10^3/uL (0.0-0.2) Sodium Level 143mmol/L (136-145) Potassium Level 4.1mmol/L (3.5-5.1) Chloride Level 107mmol/L (98-107) Carbon Dioxide Level 26mmol/L (21-32) Anion Gap 10 (6-14) Blood Urea Nitrogen 18mg/dL (7-20) Creatinine 0.7mg/dL (0.6-1.0) Estimated GFR (Cockcroft-Gault) 103.3 BUN/Creatinine Ratio 26 (6-20) Glucose Level 99mg/dL (70-99) Calcium Level 8.8mg/dL (8.5-10.1) Total Bilirubin 0.4mg/dL (0.2-1.0) Aspartate Amino Transf (AST/SGOT) 21U/L (15-37) Alanine Aminotransferase (ALT/SGPT) 23U/L (14-59) Alkaline Phosphatase 42U/L (46-116) Troponin I Quantitative 0.046ng/mL (0.000-0.055) Total Protein 6.9g/dL (6.4-8.2) Albumin 3.5g/dL (3.4-5.0) Albumin/Globulin Ratio 1.0 (1.0-1.7) Triglycerides Level 37mg/dL (0-150) Cholesterol Level 154mg/dL (0-200) LDL Cholesterol, Calculated 92mg/dL (0-100) VLDL Cholesterol, Calculated 7mg/dL (0-40) HDL Cholesterol 55mg/dL (40-60) Cholesterol/HDL Ratio 2.8 IMAGES IMAGES CXR - without acute findings EKG EKG no acute changes ASSESSMENT/PLAN ASSESSMENT/PLAN 1. chest pain somewhat atypical as constant EKG with acute changes and troponin levels not consistent with AMI with history of HTN - will send for MPI - needs pharmacological due to previous joint replacement if non-ischemic, may discharge later today 2. SLE no pericardial rub on auscultation echo to evaluate continue home meds 3. HTN controlled with meds echo to evaluate for DD Problems: MARTIN WILLSON MD 02/07/17 1650: CARDIAC CONSULT ALLERGIES ALLERGIES: Coded Allergies: Penicillins (Verified Allergy, Intermediate, 02/07/17) ASSESSMENT/PLAN ASSESSMENT/PLAN Patient seen and examined. Agree with SENIOR COMMISSIONS ANALYST's assessment and plan. Chest pain with atypical features and most probably musculoskeletal. Myocardial infarction ruled out. 2-D echo showed normal LV function and Lexiscan nuclear stress test did not show any significant ischemia. Okay for discharge from cardiac standpoint. Thank you for the consultation. Problems: HUGO PATIÑO APRN Feb 07, 2017 09:46 MARTIN WILLSON MD Feb 07, 2017 16:50
[2017-02-07] MEDS ORDERED: REGADENOSON 0.4 MG/5 ML DISP.SYRIN. IV ONE (10:45)
--- NOTE | 2017-02-07 11:51 | PDOC2 ---
NEUROLOGY CONSULT Date of Admission Date of Admission DATE: 02/07/17 TIME: 11:46 Reason for Consult Reason for Consult: Headaches Referring Physician Referring Physician: Dr. Cee PCP: Dr. Thakur Source Source: Chart review, Patient History of Present Illness History of Present Illness The patient is a 61-year-old right-handed female who for the past week has had episodes of severe throbbing headache, tinnitus in the left ear, and pressure feelings in the left chest and arm. She is had at least 3 episodes, the last of which was yesterday and so she came to the emergency department. She had not figured out any inciting or mitigating features except that the symptoms do resolve within about a half-hour. She denies any prior history of migraines, strokes, seizures, or head injuries. Past Medical History Cardiovascular: HTN, Other (DVT) GI: Diverticulosis Rheumatologic: Other (Lupus, sees Dr. Spear) Past Surgical History Past Surgical History: Hernia Repair, Total hip replacement (right), Hysterectomy Family History Family History: No pertinent hx Social History Social History , works in the [employer], quit smoking several years ago, no alcohol Current Medications Current Medications Current Medications Nitroglycerin (Nitrostat) 0.4 mg PRN Q5MIN PRN SL CP RATING > 1/10; Start 02/06 at 18:45; Stop 02/07/17 at 18:44 Fentanyl Citrate (Fentanyl 2ml Vial) 25 mcg PRN Q15MIN PRN IV PAIN GREATER THAN 3/10 Last administered on 02/06/17 20:03; Start 02/06/17 at 18:45; Stop at 18:44 Aspirin (Carlos Aspirin) 325 mg 1X ONCE PO Last administered on 02/06/17 20:03 ; Start 02/06/17 at 20:00; Stop 02/06/17 at 20:01; Status DC Iohexol (Omnipaque 300 Mg/ml) 75 ml 1X ONCE IV Last administered on 02/06/17 20:12; Start 02/06/17 at 20:00; Stop 02/06/17 at 20:01; Status DC Sumatriptan Succinate (Imitrex) 50 mg PRN Q2HR PRN PO MIGRAINE HEADACHE Last administered on 02/07/17 08:53; Start 02/06/17 at 23:15 Morphine Sulfate (Morphine Ir) 15 mg PRN Q4HRS PRN PO SEVERE PAIN; Start at 23:15 Hydroxychloroquine Sulfate (Plaquenil) 200 mg DAILY PO Last administered on 08:53; Start 02/07/17 at 09:00 Enoxaparin Sodium (Lovenox Per Pharmacy Prophylaxis Dosing) 1 each PRN DAILY PRN MC SEE COMMENTS; Start 02/06/17 at 23:15 Enoxaparin Sodium (Lovenox 40mg Syringe) 40 mg DAILY SQ Last administered on 08:53; Start 02/07/17 at 09:00 Folic Acid (Folic Acid) 1 mg DAILY PO Last administered on 02/07/17 08:54; Start 02/07/17 at 09:00 Methotrexate (Rheumatrex) 10 mg WEEKLY PO ; Start 02/13/17 at 09:00 Nifedipine (Procardia Xl) 30 mg DAILY PO Last administered on 02/07/17 08:54; Start 02/07/17 at 09:00 Lisinopril (Prinivil) 10 mg DAILY PO Last administered on 02/07/17 08:54; Start 02/07/17 at 09:00 Ondansetron HCl (Zofran) 4 mg PRN Q8HRS PRN IV NAUSEA/VOMITING; Start 02/07/17 at 00:00; Stop 02/07/17 at 23:59 Hydrochlorothiazide (Microzide) 12.5 mg DAILY PO Last administered on 08:53; Start 02/07/17 at 09:00 Regadenoson (Lexiscan) 0.4 mg 1X ONCE IV Last administered on 02/07/17 11:13 ; Start 02/07/17 at 10:45; Stop 02/07/17 at 10:46; Status DC Active Scripts Active Reported Methotrexate (Methotrexate Sodium) 2.5 Mg Tablet 4 Tab PO WEEKLY Nifedipine 10 Mg Capsule 30 Mg PO DAILY Hydroxychloroquine Sulfate 200 Mg Tablet 200 Mg PO DAILY Folic Acid 1 Mg Tablet 1 Tab PO DAILY Lisinopril-Hctz 10-12.5 Mg Tab (Lisinopril/Hydrochlorothiazide) 1 Each Tablet 1 Tab PO DAILY Allergies Allergies: Coded Allergies: Penicillins (Verified Allergy, Intermediate, 3/22/17) ROS Review of System Negative for fevers, chills, weight loss, shortness of breath, chest pain, indigestion, hematochezia, melena, dysuria. Full 14-point review systems is negative. Physical Exam Physical Examination PHYSICAL EXAMINATION: Vital signs: see above. General appearance is normal and in no acute distress. HEENT: Normocephalic and nontraumatic. Eyes, nose, ears, and throat are unremarkable. Neck is supple. No lymphadenopathy. No bruits are heard over the carotid artery. No crepitus. NEUROLOGICAL EXAMINATION: Mental Status Examination: Alert. Oriented to time, place, and person. Answers questions and follows commends. Pupils are equal round and reactive to light and accommodation. Funduscopic exam: No papilledema. Extraocular movements are intact. Visual field exam shows no defect on the direct confrontation. No motor or sensory deficits on the facial exam. Uvula in the midline and the soft palate elevated symmetrically. No deviation of the tongue to any direction. Gross hearing is normal. Shoulder shrug normal. Muscle tone is normal. Muscle strength is 5. Deep tendon reflexes are 2+ all around. Plantar reflex is with flexion response bilaterally. [id number] test performance is accurate. Tandem walk test is accurate. Alternative movements are accurate. Romberg test is negative. Gait is normal. Sensory exam shows no deficits. No cerebellar signs are elicited. Vitals VITALS Vital Signs Date Time Temp Pulse Resp B/P Pulse Ox O2 Delivery O2 Flow Rate FiO2 02/07/17 08:54 61 111/58 02/07/17 08:15 Room Air 02/07/17 07:00 98.3 19 100 98.3 Labs Labs Laboratory Tests Test 02/06/17 18:39 02/06/17 18:42 02/06/17 18:44 02/06/17 18:51 White Blood Count 5.6x10^3/uL (4.0-11.0) Red Blood Count 4.00x10^6/uL (3.50-5.40) Hemoglobin 11.1g/dL (12.0-15.5) Hematocrit 34.0% (36.0-47.0) Mean Corpuscular Volume 85fL (79-100) Mean Corpuscular Hemoglobin 28pg (25-35) Mean Corpuscular Hemoglobin Concent 33g/dL (31-37) Red Cell Distribution Width 14.6% (11.5-14.5) Platelet Count 252x10^3/uL (140-400) Neutrophils (%) (Auto) 61% (31-73) Lymphocytes (%) (Auto) 32% (24-48) Monocytes (%) (Auto) 5% (0-9) Eosinophils (%) (Auto) 2% (0-3) Basophils (%) (Auto) 1% (0-3) Neutrophils # (Auto) 3.4x10^3uL (1.8-7.7) Lymphocytes # (Auto) 1.8x10^3/uL (1.0-4.8) Monocytes # (Auto) 0.3x10^3/uL (0.0-1.1) Eosinophils # (Auto) 0.1x10^3/uL (0.0-0.7) Basophils # (Auto) 0.0x10^3/uL (0.0-0.2) Prothrombin Time 12.9SEC (11.7-14.0) Prothromb Time International Ratio 1.0 (0.8-1.1) Troponin I Quantitative 0.033ng/mL (0.000-0.055) NP-Wte-X-Type Natriuretic Peptide 43pg/mL (0-124) Lipase 206U/L (73-393) Bedside Troponin I 0.00ng/ml (<0.08) Bedside Hemoglobin 11.9g/dL (12-15) Bedside Hematocrit 35% (36-40) Bedside Sodium 138mmol/L (135-145) Bedside Potassium 3.6mmol/L (3.5-5.0) Bedside Chloride 104mmol/L (98-110) Bedside Total CO2 21mmol/L (23-32) Anion Gap 17mmol/L (6-14) Bedside Blood Urea Nitrogen 19mg/dL (8-26) Bedside Creatinine 0.7mg/dL (0.5-1.4) Glucose Level 88mg/dL (70-99) Bedside Ionized Calcium (John) 1.10mmol/L (1.13-1.32) D-Dimer (Perla) 0.52ug/mlFEU (0.00-0.50) Test 02/07/17 04:30 02/07/17 10:15 White Blood Count 4.2x10^3/uL (4.0-11.0) Red Blood Count 3.96x10^6/uL (3.50-5.40) Hemoglobin 11.1g/dL (12.0-15.5) Hematocrit 33.7% (36.0-47.0) Mean Corpuscular Volume 85fL (79-100) Mean Corpuscular Hemoglobin 28pg (25-35) Mean Corpuscular Hemoglobin Concent 33g/dL (31-37) Red Cell Distribution Width 14.6% (11.5-14.5) Platelet Count 236x10^3/uL (140-400) Neutrophils (%) (Auto) 59% (31-73) Lymphocytes (%) (Auto) 33% (24-48) Monocytes (%) (Auto) 5% (0-9) Eosinophils (%) (Auto) 3% (0-3) Basophils (%) (Auto) 1% (0-3) Neutrophils # (Auto) 2.5x10^3uL (1.8-7.7) Lymphocytes # (Auto) 1.4x10^3/uL (1.0-4.8) Monocytes # (Auto) 0.2x10^3/uL (0.0-1.1) Eosinophils # (Auto) 0.1x10^3/uL (0.0-0.7) Basophils # (Auto) 0.0x10^3/uL (0.0-0.2) Sodium Level 143mmol/L (136-145) Potassium Level 4.1mmol/L (3.5-5.1) Chloride Level 107mmol/L (98-107) Carbon Dioxide Level 26mmol/L (21-32) Anion Gap 10 (6-14) Blood Urea Nitrogen 18mg/dL (7-20) Creatinine 0.7mg/dL (0.6-1.0) Estimated GFR (Cockcroft-Gault) 103.3 BUN/Creatinine Ratio 26 (6-20) Glucose Level 99mg/dL (70-99) Calcium Level 8.8mg/dL (8.5-10.1) Total Bilirubin 0.4mg/dL (0.2-1.0) Aspartate Amino Transf (AST/SGOT) 21U/L (15-37) Alanine Aminotransferase (ALT/SGPT) 23U/L (14-59) Alkaline Phosphatase 42U/L (46-116) Troponin I Quantitative 0.046ng/mL (0.000-0.055) 0.031ng/mL (0.000-0.055) Total Protein 6.9g/dL (6.4-8.2) Albumin 3.5g/dL (3.4-5.0) Albumin/Globulin Ratio 1.0 (1.0-1.7) Triglycerides Level 37mg/dL (0-150) Cholesterol Level 154mg/dL (0-200) LDL Cholesterol, Calculated 92mg/dL (0-100) VLDL Cholesterol, Calculated 7mg/dL (0-40) HDL Cholesterol 55mg/dL (40-60) Cholesterol/HDL Ratio 2.8 Laboratory Tests Test 02/06/17 18:39 02/06/17 18:42 02/06/17 18:44 02/06/17 18:51 White Blood Count 5.6x10^3/uL (4.0-11.0) Red Blood Count 4.00x10^6/uL (3.50-5.40) Hemoglobin 11.1g/dL (12.0-15.5) Hematocrit 34.0% (36.0-47.0) Mean Corpuscular Volume 85fL (79-100) Mean Corpuscular Hemoglobin 28pg (25-35) Mean Corpuscular Hemoglobin Concent 33g/dL (31-37) Red Cell Distribution Width 14.6% (11.5-14.5) Platelet Count 252x10^3/uL (140-400) Neutrophils (%) (Auto) 61% (31-73) Lymphocytes (%) (Auto) 32% (24-48) Monocytes (%) (Auto) 5% (0-9) Eosinophils (%) (Auto) 2% (0-3) Basophils (%) (Auto) 1% (0-3) Neutrophils # (Auto) 3.4x10^3uL (1.8-7.7) Lymphocytes # (Auto) 1.8x10^3/uL (1.0-4.8) Monocytes # (Auto) 0.3x10^3/uL (0.0-1.1) Eosinophils # (Auto) 0.1x10^3/uL (0.0-0.7) Basophils # (Auto) 0.0x10^3/uL (0.0-0.2) Prothrombin Time 12.9SEC (11.7-14.0) Prothromb Time International Ratio 1.0 (0.8-1.1) Troponin I Quantitative 0.033ng/mL (0.000-0.055) BT-Evr-W-Type Natriuretic Peptide 43pg/mL (0-124) Lipase 206U/L (73-393) Bedside Troponin I 0.00ng/ml (<0.08) Bedside Hemoglobin 11.9g/dL (12-15) Bedside Hematocrit 35% (36-40) Bedside Sodium 138mmol/L (135-145) Bedside Potassium 3.6mmol/L (3.5-5.0) Bedside Chloride 104mmol/L (98-110) Bedside Total CO2 21mmol/L (23-32) Anion Gap 17mmol/L (6-14) Bedside Blood Urea Nitrogen 19mg/dL (8-26) Bedside Creatinine 0.7mg/dL (0.5-1.4) Glucose Level 88mg/dL (70-99) Bedside Ionized Calcium (John) 1.10mmol/L (1.13-1.32) D-Dimer (Perla) 0.52ug/mlFEU (0.00-0.50) Test 02/07/17 04:30 02/07/17 10:15 White Blood Count 4.2x10^3/uL (4.0-11.0) Red Blood Count 3.96x10^6/uL (3.50-5.40) Hemoglobin 11.1g/dL (12.0-15.5) Hematocrit 33.7% (36.0-47.0) Mean Corpuscular Volume 85fL (79-100) Mean Corpuscular Hemoglobin 28pg (25-35) Mean Corpuscular Hemoglobin Concent 33g/dL (31-37) Red Cell Distribution Width 14.6% (11.5-14.5) Platelet Count 236x10^3/uL (140-400) Neutrophils (%) (Auto) 59% (31-73) Lymphocytes (%) (Auto) 33% (24-48) Monocytes (%) (Auto) 5% (0-9) Eosinophils (%) (Auto) 3% (0-3) Basophils (%) (Auto) 1% (0-3) Neutrophils # (Auto) 2.5x10^3uL (1.8-7.7) Lymphocytes # (Auto) 1.4x10^3/uL (1.0-4.8) Monocytes # (Auto) 0.2x10^3/uL (0.0-1.1) Eosinophils # (Auto) 0.1x10^3/uL (0.0-0.7) Basophils # (Auto) 0.0x10^3/uL (0.0-0.2) Sodium Level 143mmol/L (136-145) Potassium Level 4.1mmol/L (3.5-5.1) Chloride Level 107mmol/L (98-107) Carbon Dioxide Level 26mmol/L (21-32) Anion Gap 10 (6-14) Blood Urea Nitrogen 18mg/dL (7-20) Creatinine 0.7mg/dL (0.6-1.0) Estimated GFR (Cockcroft-Gault) 103.3 BUN/Creatinine Ratio 26 (6-20) Glucose Level 99mg/dL (70-99) Calcium Level 8.8mg/dL (8.5-10.1) Total Bilirubin 0.4mg/dL (0.2-1.0) Aspartate Amino Transf (AST/SGOT) 21U/L (15-37) Alanine Aminotransferase (ALT/SGPT) 23U/L (14-59) Alkaline Phosphatase 42U/L (46-116) Troponin I Quantitative 0.046ng/mL (0.000-0.055) 0.031ng/mL (0.000-0.055) Total Protein 6.9g/dL (6.4-8.2) Albumin 3.5g/dL (3.4-5.0) Albumin/Globulin Ratio 1.0 (1.0-1.7) Triglycerides Level 37mg/dL (0-150) Cholesterol Level 154mg/dL (0-200) LDL Cholesterol, Calculated 92mg/dL (0-100) VLDL Cholesterol, Calculated 7mg/dL (0-40) HDL Cholesterol 55mg/dL (40-60) Cholesterol/HDL Ratio 2.[address] yesterday: There is no intracranial hemorrhage or mass. Ventricles are normal in size. There is no shift of the midline. An acute CVA is not identified. Visualized sinuses are clear. There are no abnormal areas of increased or decreased attenuation. IMPRESSION 1. No intracranial hemorrhage or mass or acute finding noted. Assessment/Plan Assessment/Plan Impression: Headaches, possible migraine phenomenon, but unusual for this presentation especially without a prior history of migraines. We need to exclude intracranial mass lesion or aneurysm as well as cardiac disease. Recommendations: MRI of the brain with MR angiogram of the brain Cardiac workup I will consider adding on a preventative antimigraine medication depending on the course and the workup results. Thank you for letting me help with the patient's care. DEBORAH SANCHEZ MD Feb 07, 2017 11:51
--- NOTE | 2017-02-07 13:38 | PDOC ---
PROGRESS NOTES Chief Complaint Chief Complaint chest pain at rest. sensation of tightness to left arm, anginal equivalent, Lupus, headache, poss migranous, Hx DVT, almost 20 years ago, proph lovenox History of Present Illness History of Present Illness MR, MRA brain order echo MPI stress extensive w/u for problems, may not be done today, she feels much improved Vitals Vitals Vital Signs Date Time Temp Pulse Resp B/P Pulse Ox O2 Delivery O2 Flow Rate FiO2 02/07/17 08:54 61 111/58 02/07/17 08:15 Room Air 02/07/17 07:00 98.3 19 100 98.3 Physical Exam General: Alert, Oriented X3, Cooperative, No acute distress Heart: Regular rate, Normal S1, Normal S2, No murmurs, Other (no carotid bruits ; pain not reproducible) Abdomen: Normal bowel sounds, Soft Extremities: No clubbing, No edema, Normal pulses Skin: No rashes Labs LABS Laboratory Tests Test 02/06/17 18:39 02/06/17 18:42 02/06/17 18:44 02/06/17 18:51 White Blood Count 5.6x10^3/uL (4.0-11.0) Red Blood Count 4.00x10^6/uL (3.50-5.40) Hemoglobin 11.1g/dL (12.0-15.5) Hematocrit 34.0% (36.0-47.0) Mean Corpuscular Volume 85fL (79-100) Mean Corpuscular Hemoglobin 28pg (25-35) Mean Corpuscular Hemoglobin Concent 33g/dL (31-37) Red Cell Distribution Width 14.6% (11.5-14.5) Platelet Count 252x10^3/uL (140-400) Neutrophils (%) (Auto) 61% (31-73) Lymphocytes (%) (Auto) 32% (24-48) Monocytes (%) (Auto) 5% (0-9) Eosinophils (%) (Auto) 2% (0-3) Basophils (%) (Auto) 1% (0-3) Neutrophils # (Auto) 3.4x10^3uL (1.8-7.7) Lymphocytes # (Auto) 1.8x10^3/uL (1.0-4.8) Monocytes # (Auto) 0.3x10^3/uL (0.0-1.1) Eosinophils # (Auto) 0.1x10^3/uL (0.0-0.7) Basophils # (Auto) 0.0x10^3/uL (0.0-0.2) Prothrombin Time 12.9SEC (11.7-14.0) Prothromb Time International Ratio 1.0 (0.8-1.1) Troponin I Quantitative 0.033ng/mL (0.000-0.055) MQ-Jqh-L-Type Natriuretic Peptide 43pg/mL (0-124) Lipase 206U/L (73-393) Bedside Troponin I 0.00ng/ml (<0.08) Bedside Hemoglobin 11.9g/dL (12-15) Bedside Hematocrit 35% (36-40) Bedside Sodium 138mmol/L (135-145) Bedside Potassium 3.6mmol/L (3.5-5.0) Bedside Chloride 104mmol/L (98-110) Bedside Total CO2 21mmol/L (23-32) Anion Gap 17mmol/L (6-14) Bedside Blood Urea Nitrogen 19mg/dL (8-26) Bedside Creatinine 0.7mg/dL (0.5-1.4) Glucose Level 88mg/dL (70-99) Bedside Ionized Calcium (John) 1.10mmol/L (1.13-1.32) D-Dimer (Perla) 0.52ug/mlFEU (0.00-0.50) Test 02/07/17 04:30 02/07/17 10:15 White Blood Count 4.2x10^3/uL (4.0-11.0) Red Blood Count 3.96x10^6/uL (3.50-5.40) Hemoglobin 11.1g/dL (12.0-15.5) Hematocrit 33.7% (36.0-47.0) Mean Corpuscular Volume 85fL (79-100) Mean Corpuscular Hemoglobin 28pg (25-35) Mean Corpuscular Hemoglobin Concent 33g/dL (31-37) Red Cell Distribution Width 14.6% (11.5-14.5) Platelet Count 236x10^3/uL (140-400) Neutrophils (%) (Auto) 59% (31-73) Lymphocytes (%) (Auto) 33% (24-48) Monocytes (%) (Auto) 5% (0-9) Eosinophils (%) (Auto) 3% (0-3) Basophils (%) (Auto) 1% (0-3) Neutrophils # (Auto) 2.5x10^3uL (1.8-7.7) Lymphocytes # (Auto) 1.4x10^3/uL (1.0-4.8) Monocytes # (Auto) 0.2x10^3/uL (0.0-1.1) Eosinophils # (Auto) 0.1x10^3/uL (0.0-0.7) Basophils # (Auto) 0.0x10^3/uL (0.0-0.2) Sodium Level 143mmol/L (136-145) Potassium Level 4.1mmol/L (3.5-5.1) Chloride Level 107mmol/L (98-107) Carbon Dioxide Level 26mmol/L (21-32) Anion Gap 10 (6-14) Blood Urea Nitrogen 18mg/dL (7-20) Creatinine 0.7mg/dL (0.6-1.0) Estimated GFR (Cockcroft-Gault) 103.3 BUN/Creatinine Ratio 26 (6-20) Glucose Level 99mg/dL (70-99) Calcium Level 8.8mg/dL (8.5-10.1) Total Bilirubin 0.4mg/dL (0.2-1.0) Aspartate Amino Transf (AST/SGOT) 21U/L (15-37) Alanine Aminotransferase (ALT/SGPT) 23U/L (14-59) Alkaline Phosphatase 42U/L (46-116) Troponin I Quantitative 0.046ng/mL (0.000-0.055) 0.031ng/mL (0.000-0.055) Total Protein 6.9g/dL (6.4-8.2) Albumin 3.5g/dL (3.4-5.0) Albumin/Globulin Ratio 1.0 (1.0-1.7) Triglycerides Level 37mg/dL (0-150) Cholesterol Level 154mg/dL (0-200) LDL Cholesterol, Calculated 92mg/dL (0-100) VLDL Cholesterol, Calculated 7mg/dL (0-40) HDL Cholesterol 55mg/dL (40-60) Cholesterol/HDL Ratio 2.8 Review of Systems Review of Systems no n/v/d Assessment and Plan Assessmemt and Plan if above tests neg an cleared by neuro and CV, will DC, she feels improved Problems Medical Problems: (1) Chest pain Status: Acute Problems: Comment Review of Relevant I have reviewed the following items talia (where applicable) has been applied. Labs Laboratory Tests Test 02/06/17 18:39 02/06/17 18:42 02/06/17 18:44 02/06/17 18:51 White Blood Count 5.6x10^3/uL (4.0-11.0) Red Blood Count 4.00x10^6/uL (3.50-5.40) Hemoglobin 11.1g/dL (12.0-15.5) Hematocrit 34.0% (36.0-47.0) Mean Corpuscular Volume 85fL (79-100) Mean Corpuscular Hemoglobin 28pg (25-35) Mean Corpuscular Hemoglobin Concent 33g/dL (31-37) Red Cell Distribution Width 14.6% (11.5-14.5) Platelet Count 252x10^3/uL (140-400) Neutrophils (%) (Auto) 61% (31-73) Lymphocytes (%) (Auto) 32% (24-48) Monocytes (%) (Auto) 5% (0-9) Eosinophils (%) (Auto) 2% (0-3) Basophils (%) (Auto) 1% (0-3) Neutrophils # (Auto) 3.4x10^3uL (1.8-7.7) Lymphocytes # (Auto) 1.8x10^3/uL (1.0-4.8) Monocytes # (Auto) 0.3x10^3/uL (0.0-1.1) Eosinophils # (Auto) 0.1x10^3/uL (0.0-0.7) Basophils # (Auto) 0.0x10^3/uL (0.0-0.2) Prothrombin Time 12.9SEC (11.7-14.0) Prothromb Time International Ratio 1.0 (0.8-1.1) Troponin I Quantitative 0.033ng/mL (0.000-0.055) SC-Urj-I-Type Natriuretic Peptide 43pg/mL (0-124) Lipase 206U/L (73-393) Bedside Troponin I 0.00ng/ml (<0.08) Bedside Hemoglobin 11.9g/dL (12-15) Bedside Hematocrit 35% (36-40) Bedside Sodium 138mmol/L (135-145) Bedside Potassium 3.6mmol/L (3.5-5.0) Bedside Chloride 104mmol/L (98-110) Bedside Total CO2 21mmol/L (23-32) Anion Gap 17mmol/L (6-14) Bedside Blood Urea Nitrogen 19mg/dL (8-26) Bedside Creatinine 0.7mg/dL (0.5-1.4) Glucose Level 88mg/dL (70-99) Bedside Ionized Calcium (John) 1.10mmol/L (1.13-1.32) D-Dimer (Perla) 0.52ug/mlFEU (0.00-0.50) Test 02/07/17 04:30 02/07/17 10:15 White Blood Count 4.2x10^3/uL (4.0-11.0) Red Blood Count 3.96x10^6/uL (3.50-5.40) Hemoglobin 11.1g/dL (12.0-15.5) Hematocrit 33.7% (36.0-47.0) Mean Corpuscular Volume 85fL (79-100) Mean Corpuscular Hemoglobin 28pg (25-35) Mean Corpuscular Hemoglobin Concent 33g/dL (31-37) Red Cell Distribution Width 14.6% (11.5-14.5) Platelet Count 236x10^3/uL (140-400) Neutrophils (%) (Auto) 59% (31-73) Lymphocytes (%) (Auto) 33% (24-48) Monocytes (%) (Auto) 5% (0-9) Eosinophils (%) (Auto) 3% (0-3) Basophils (%) (Auto) 1% (0-3) Neutrophils # (Auto) 2.5x10^3uL (1.8-7.7) Lymphocytes # (Auto) 1.4x10^3/uL (1.0-4.8) Monocytes # (Auto) 0.2x10^3/uL (0.0-1.1) Eosinophils # (Auto) 0.1x10^3/uL (0.0-0.7) Basophils # (Auto) 0.0x10^3/uL (0.0-0.2) Sodium Level 143mmol/L (136-145) Potassium Level 4.1mmol/L (3.5-5.1) Chloride Level 107mmol/L (98-107) Carbon Dioxide Level 26mmol/L (21-32) Anion Gap 10 (6-14) Blood Urea Nitrogen 18mg/dL (7-20) Creatinine 0.7mg/dL (0.6-1.0) Estimated GFR (Cockcroft-Gault) 103.3 BUN/Creatinine Ratio 26 (6-20) Glucose Level 99mg/dL (70-99) Calcium Level 8.8mg/dL (8.5-10.1) Total Bilirubin 0.4mg/dL (0.2-1.0) Aspartate Amino Transf (AST/SGOT) 21U/L (15-37) Alanine Aminotransferase (ALT/SGPT) 23U/L (14-59) Alkaline Phosphatase 42U/L (46-116) Troponin I Quantitative 0.046ng/mL (0.000-0.055) 0.031ng/mL (0.000-0.055) Total Protein 6.9g/dL (6.4-8.2) Albumin 3.5g/dL (3.4-5.0) Albumin/Globulin Ratio 1.0 (1.0-1.7) Triglycerides Level 37mg/dL (0-150) Cholesterol Level 154mg/dL (0-200) LDL Cholesterol, Calculated 92mg/dL (0-100) VLDL Cholesterol, Calculated 7mg/dL (0-40) HDL Cholesterol 55mg/dL (40-60) Cholesterol/HDL Ratio 2.8 Laboratory Tests Test 02/06/17 18:39 02/06/17 18:42 02/06/17 18:44 02/06/17 18:51 White Blood Count 5.6x10^3/uL (4.0-11.0) Red Blood Count 4.00x10^6/uL (3.50-5.40) Hemoglobin 11.1g/dL (12.0-15.5) Hematocrit 34.0% (36.0-47.0) Mean Corpuscular Volume 85fL (79-100) Mean Corpuscular Hemoglobin 28pg (25-35) Mean Corpuscular Hemoglobin Concent 33g/dL (31-37) Red Cell Distribution Width 14.6% (11.5-14.5) Platelet Count 252x10^3/uL (140-400) Neutrophils (%) (Auto) 61% (31-73) Lymphocytes (%) (Auto) 32% (24-48) Monocytes (%) (Auto) 5% (0-9) Eosinophils (%) (Auto) 2% (0-3) Basophils (%) (Auto) 1% (0-3) Neutrophils # (Auto) 3.4x10^3uL (1.8-7.7) Lymphocytes # (Auto) 1.8x10^3/uL (1.0-4.8) Monocytes # (Auto) 0.3x10^3/uL (0.0-1.1) Eosinophils # (Auto) 0.1x10^3/uL (0.0-0.7) Basophils # (Auto) 0.0x10^3/uL (0.0-0.2) Prothrombin Time 12.9SEC (11.7-14.0) Prothromb Time International Ratio 1.0 (0.8-1.1) Troponin I Quantitative 0.033ng/mL (0.000-0.055) JC-Zrk-M-Type Natriuretic Peptide 43pg/mL (0-124) Lipase 206U/L (73-393) Bedside Troponin I 0.00ng/ml (<0.08) Bedside Hemoglobin 11.9g/dL (12-15) Bedside Hematocrit 35% (36-40) Bedside Sodium 138mmol/L (135-145) Bedside Potassium 3.6mmol/L (3.5-5.0) Bedside Chloride 104mmol/L (98-110) Bedside Total CO2 21mmol/L (23-32) Anion Gap 17mmol/L (6-14) Bedside Blood Urea Nitrogen 19mg/dL (8-26) Bedside Creatinine 0.7mg/dL (0.5-1.4) Glucose Level 88mg/dL (70-99) Bedside Ionized Calcium (John) 1.10mmol/L (1.13-1.32) D-Dimer (Perla) 0.52ug/mlFEU (0.00-0.50) Test 02/07/17 04:30 02/07/17 10:15 White Blood Count 4.2x10^3/uL (4.0-11.0) Red Blood Count 3.96x10^6/uL (3.50-5.40) Hemoglobin 11.1g/dL (12.0-15.5) Hematocrit 33.7% (36.0-47.0) Mean Corpuscular Volume 85fL (79-100) Mean Corpuscular Hemoglobin 28pg (25-35) Mean Corpuscular Hemoglobin Concent 33g/dL (31-37) Red Cell Distribution Width 14.6% (11.5-14.5) Platelet Count 236x10^3/uL (140-400) Neutrophils (%) (Auto) 59% (31-73) Lymphocytes (%) (Auto) 33% (24-48) Monocytes (%) (Auto) 5% (0-9) Eosinophils (%) (Auto) 3% (0-3) Basophils (%) (Auto) 1% (0-3) Neutrophils # (Auto) 2.5x10^3uL (1.8-7.7) Lymphocytes # (Auto) 1.4x10^3/uL (1.0-4.8) Monocytes # (Auto) 0.2x10^3/uL (0.0-1.1) Eosinophils # (Auto) 0.1x10^3/uL (0.0-0.7) Basophils # (Auto) 0.0x10^3/uL (0.0-0.2) Sodium Level 143mmol/L (136-145) Potassium Level 4.1mmol/L (3.5-5.1) Chloride Level 107mmol/L (98-107) Carbon Dioxide Level 26mmol/L (21-32) Anion Gap 10 (6-14) Blood Urea Nitrogen 18mg/dL (7-20) Creatinine 0.7mg/dL (0.6-1.0) Estimated GFR (Cockcroft-Gault) 103.3 BUN/Creatinine Ratio 26 (6-20) Glucose Level 99mg/dL (70-99) Calcium Level 8.8mg/dL (8.5-10.1) Total Bilirubin 0.4mg/dL (0.2-1.0) Aspartate Amino Transf (AST/SGOT) 21U/L (15-37) Alanine Aminotransferase (ALT/SGPT) 23U/L (14-59) Alkaline Phosphatase 42U/L (46-116) Troponin I Quantitative 0.046ng/mL (0.000-0.055) 0.031ng/mL (0.000-0.055) Total Protein 6.9g/dL (6.4-8.2) Albumin 3.5g/dL (3.4-5.0) Albumin/Globulin Ratio 1.0 (1.0-1.7) Triglycerides Level 37mg/dL (0-150) Cholesterol Level 154mg/dL (0-200) LDL Cholesterol, Calculated 92mg/dL (0-100) VLDL Cholesterol, Calculated 7mg/dL (0-40) HDL Cholesterol 55mg/dL (40-60) Cholesterol/HDL Ratio 2.8 Medications Current Medications Nitroglycerin (Nitrostat) 0.4 mg PRN Q5MIN PRN SL CP RATING > 1/10; Start 02/06 at 18:45; Stop 02/07/17 at 18:44 Fentanyl Citrate (Fentanyl 2ml Vial) 25 mcg PRN Q15MIN PRN IV PAIN GREATER THAN 3/10 Last administered on 02/06/17 20:03; Start 02/06/17 at 18:45; Stop at 13:29; Status DC Aspirin (Carlos Aspirin) 325 mg 1X ONCE PO Last administered on 02/06/17 20:03 ; Start 02/06/17 at 20:00; Stop 02/06/17 at 20:01; Status DC Iohexol (Omnipaque 300 Mg/ml) 75 ml 1X ONCE IV Last administered on 02/06/17 20:12; Start 02/06/17 at 20:00; Stop 02/06/17 at 20:01; Status DC Sumatriptan Succinate (Imitrex) 50 mg PRN Q2HR PRN PO MIGRAINE HEADACHE Last administered on 02/07/17 08:53; Start 02/06/17 at 23:15 Morphine Sulfate (Morphine Ir) 15 mg PRN Q4HRS PRN PO SEVERE PAIN; Start at 23:15 Hydroxychloroquine Sulfate (Plaquenil) 200 mg DAILY PO Last administered on 08:53; Start 02/07/17 at 09:00 Enoxaparin Sodium (Lovenox Per Pharmacy Prophylaxis Dosing) 1 each PRN DAILY PRN MC SEE COMMENTS; Start 02/06/17 at 23:15; Stop 02/07/17 at 13:28; Status DC Enoxaparin Sodium (Lovenox 40mg Syringe) 40 mg DAILY SQ Last administered on 08:53; Start 02/07/17 at 09:00 Folic Acid (Folic Acid) 1 mg DAILY PO Last administered on 02/07/17 08:54; Start 02/07/17 at 09:00 Methotrexate (Rheumatrex) 10 mg WEEKLY PO ; Start 02/13/17 at 09:00 Nifedipine (Procardia Xl) 30 mg DAILY PO Last administered on 02/07/17 08:54; Start 02/07/17 at 09:00 Lisinopril (Prinivil) 10 mg DAILY PO Last administered on 02/07/17 08:54; Start 02/07/17 at 09:00 Ondansetron HCl (Zofran) 4 mg PRN Q8HRS PRN IV NAUSEA/VOMITING; Start 02/07/17 at 00:00; Stop 02/07/17 at 23:59 Hydrochlorothiazide (Microzide) 12.5 mg DAILY PO Last administered on 08:53; Start 02/07/17 at 09:00 Regadenoson (Lexiscan) 0.4 mg 1X ONCE IV Last administered on 02/07/17 11:13 ; Start 02/07/17 at 10:45; Stop 02/07/17 at 10:46; Status DC Active Scripts Active Reported Methotrexate (Methotrexate Sodium) 2.5 Mg Tablet 4 Tab PO WEEKLY Nifedipine 10 Mg Capsule 30 Mg PO DAILY Hydroxychloroquine Sulfate 200 Mg Tablet 200 Mg PO DAILY Folic Acid 1 Mg Tablet 1 Tab PO DAILY Lisinopril-Hctz 10-12.5 Mg Tab (Lisinopril/Hydrochlorothiazide) 1 Each Tablet 1 Tab PO DAILY Vitals/I & O Vital Sign - Last 24 Hours 02/06/17 02/06/17 02/06/17 02/06/17 18:16 19:13 19:43 20:03 Temp 98.1 98.1 Pulse 66 70 70 Resp 18 B/P 164/78 159/71 147/74 Pulse Ox 100 100 O2 Delivery Room Air Room Air Room Air Room Air 02/06/17 02/06/17 02/06/17 02/06/17 20:43 21:37 22:13 22:43 Pulse 68 70 67 68 Resp B/P 135/84 144/66 142/67 169/71 Pulse Ox 100 99 99 O2 Delivery Room Air Room Air Room Air Room Air 02/06/17 02/07/17 02/07/17 02/07/17 23:53 00:41 03:00 07:00 Temp 97.7 97.7 98.3 97.7 97.7 98.3 Pulse 68 61 68 Resp 20 19 B/P 117/59 111/58 124/73 Pulse Ox 98 100 100 O2 Delivery Room Air Room Air Room Air Room Air 02/07/17 02/07/17 02/07/17 08:15 08:54 08:54 Pulse 61 61 B/P 111/58 111/58 O2 Delivery Room Air Intake and Output 02/06/17 02/06/17 02/07/17 15:00 23:00 07:00 Intake Total 480 ml Balance 480 ml YING FRANK MD Feb 07, 2017 13:38
--- NOTE | 2017-02-07 14:09 | RAD ---
APPROVED REPORT Test Type: Pharmacological Stress Nurse/Tech: Shannon Gomez R.N. Test Indications: chest pain Cardiac History: cardiomyopathy, PAT Medications: see ehr Medical History: see ehr Resting ECG: SR Resting Heart Rate: 78 bpm Resting Blood Pressure: 140/65mmHg Pretest Chest Pain: No chest pain Nurse/Tech Notes lungs cta, heart tones regular, good radial pulse Consent: The procedure was explained to the patient in lay terms. Informed consent was witnessed. Crow eout was entered into [employer]. History and Stress Test performed by Shannon Gomez R.N. Pharm. Details Pharmacologic stress testing was performed using 0.4mg per 5ml of regadenoson given intravenously ove r 7-10 seconds. Stress Symptoms chest pain, resolving during recovery Chest pain typical of angina occurred (Severity 5/10 , 3 min duration). POST EXERCISE Reason for Termination: Infusion complete Target HR: No Max HR: 124 bpm Max Blood Pressure: 156/74mmHg Chest Pain: Yes. see above Arrhythmia: No. ST Change: No. INTERPRETATION Stress EKG Conclusion: Baseline EKG showed sinus rhythm. No ischemic changes at peak stress. No arr hythmias. Imaging Protocol IMAGE PROTOCOL: Rest Tc-99m/stress Tc-99m 1 day Rest: Stress: Viability: Radiopharm.Tc99m [id number] Sestamibi Dose11.7mCi 33.5mCi Duration 15min. 10min. Img Date 02/07/2017 02/07/2017 Inj-Img [id number]. 60min. Rest Admin Site:IV - Left AntecubitalAdministrator:AUTUMN [place] Stress Admin Site: IV - Left AntecubitalAdministrator: BRAD Hernandez, ARRT (R)(N) STRESS DATA End Diast. Vol.72.0mlAv. Heart Rate74.0bpm End Syst. Vol.12.0mlCO Index BSA0.0L/min Myocardial Umyy876.0gEject. Nqtvwmnq23.0% Stress Rates Pk. Fill Rate3.47EDV/secLVtime Pk. Fill 134.81msec Pk. Empty Rate4.15ESV/secLVtime Pk. Acgmy153.28msec 1/3 Pk. Fill1.78EDV/sec Stress Scores Regional WT0.00Summed WT0.00 Regional WM0.00Summed WM0.00 Study quality was good. Left Ventricular size was Normal at Rest and Stress. Lung uptake was Normal. Left Ventricular ejection fraction is 83%. The rest and stress images show normal perfusion, normal contraction and thickening. LV Perf. Quant 17 Seg. SSS0.00 17 Seg. SRS0.00 17 Seg. SDS0.00 Stress Defect Extent (% LAD)0.00Rest Defect Extent (% LAD)0.00Rev. Defect Extent (% LAD)0.00 Stress Defect Extent (% LCX) 0.00Rest Defect Extent (% LCX)0.00Rev. Defect Extent (% LCX)0.00 Stress Defect Extent (% RCA)0.00Rest Defect Extent (% RCA)0.00Rev. Defect Extent (% RCA)0.00 Stress Defect Extent (% ANJUM)0.00Rest Defect Extent (% ANJUM)0.00Rev. Defect Extent (% ANJUM)0.00 Conclusion 1. Regadenoson cardioisotope stress test did not show any evidence of ischemia or infarct. 2. Normal left ventricular systolic function with ejection fraction calculated at 83%. 3. Low risk for cardiac events.
--- NOTE | 2017-02-07 15:58 | CARD ---
APPROVED REPORT EXAM: Two-dimensional and M-mode echocardiogram with Doppler and color Doppler. Other Information Quality : Average Rhythm : NSR INDICATION Peripheral Edema Chest Pain 2D DIMENSIONS RVDd2.6 (2.9-3.5cm)Left Atrium(2D)2.9 (1.6-4.0cm) IVSd0.8 (0.7-1.1cm)Aortic Root(2D)2.6 (2.0-3.7cm) LVDd4.2 (3.9-5.9cm)LVOT Diameter1.9 (1.8-2.4cm) PWd0.8 (0.7-1.1cm)LVDs2.5 (2.5-4.0cm) FS (%) 39.5 %SV55.5 ml LVEF(%)70.4 (>50%) Aortic Valve AoV Peak Rodney.128.4cm/sAoV VTI29.8cm AO Peak GR.6.6mmHgLVOT Peak Rodney.99.7cm/s AO Mean GR.4mmHgAVA (VMAX)2.14cm2 Mitral Valve MV E Xiccprac09.9cm/sMV E Peak Gr.4mmHg MV DECEL [id number] A Eupbbbyw92.7cm/s MV E Mean Gr.1mmHgMV [id number] E/A Ratio1.0MV A [id number] MVA (PHT)4.90cm2 Tricuspid Valve TR P. Cffacgbs605cj/sRAP [id number] TR Peak Gr.41yoGkOJWX79fcJk Pulmonary Vein S1 Myjiptmw66.2cm/sD2 Lxgdblwq80.5cm/s LEFT VENTRICLE The left ventricle is normal size. There is normal left ventricular wall thickness. Left ventricle sy stolic function is normal. The Ejection Fraction is 65-70%. There is normal LV segmental wall motion. The left ventricular diastolic function and filling is normal for age. RIGHT VENTRICLE The right ventricle is normal size. The right ventricular systolic function is normal. ATRIA The left atrium size is normal. The right atrium size is normal. The interatrial septum is intact wit h no evidence for an atrial septal defect or patent foramen ovale as noted on 2-D or Doppler imaging. AORTIC VALVE The aortic valve is normal in structure and function. The aortic valve is trileaflet. Doppler and Col or Flow revealed no significant aortic regurgitation. There is no significant aortic valvular stenosi s. MITRAL VALVE The mitral valve leaflets are thickened. There is no mitral valve stenosis. Doppler and Color Flow re vealed mild mitral regurgitation. TRICUSPID VALVE The tricuspid valve is normal in structure and function. Doppler and Color Flow revealed mild tricusp id regurgitation. The PA pressure was estimated at 31 mmHg. There is no tricuspid valve stenosis. PULMONIC VALVE The pulmonic valve is not well visualized. Doppler and Color Flow revealed no pulmonic valvular regur gitation. There is no pulmonic valvular stenosis. GREAT VESSELS The aortic root is normal in size. Normal pulmonary venous flow (Doppler). The IVC is normal in size and collapses >50% with inspiration. PERICARDIAL EFFUSION There is no evidence of significant pericardial effusion. Critical Notification Critical Value: No <Conclusion> Left ventricle systolic function is normal. The Ejection Fraction is 65-70%. There is normal LV segmental wall motion. Mild mitral regurgitation. Mild tricuspid regurgitation. The PA pressure was estimated at 31 mmHg. There is no evidence of significant pericardial effusion.
[2017-02-07 19:00] VITALS: BP 95/58
[2017-02-07 23:00] VITALS: BP 101/55
[2017-02-08 03:00] VITALS: BP 106/64
[2017-02-08] MEDS ORDERED: LORAZEPAM 2 MG/ML VIAL IV PRN (05:00)
[2017-02-08 07:00] VITALS: BP 115/48
[2017-02-08] MEDS ORDERED: GADOBUTROL 7.5 MMOL/7.5 ML VIAL IV ONE (08:45)
[2017-02-08] MEDS: ENOXAPARIN 40 MG/0.4 ML DISP.SYRIN. SQ SCH (09:00)
[2017-02-08] MEDS: LISINOPRIL 10 MG TABLET PO SCH (09:23)
[2017-02-08] MEDS: HYDROCHLOROTHIAZIDE 12.5 MG CAPSULE. PO SCH (09:23)
[2017-02-08] MEDS: HYDROXYCHLOROQUINE 200 MG TABLET PO SCH (09:23)
[2017-02-08] MEDS: FOLIC ACID 1 MG TABLET PO SCH (09:23)
[2017-02-08] MEDS: NIFEDIPINE ER 30 MG TAB.ER.24H PO SCH (09:24)
--- NOTE | 2017-02-08 10:56 | PDOC ---
PROGRESS NOTES Assessment Problems Medical Problems: (1) Chest pain Status: Acute Migraine phenomenon Plan Await radiology interpretation I discussed with the patient, and we decided to hold off on a daily preventative migraine medication and just see how she does Okay for discharge Follow-up with me in 6 weeks. Subjective No complaints, no headache spells since admission. She has had some mild headache, though. Objective Vital Signs Date Time Temp Pulse Resp B/P Pulse Ox O2 Delivery O2 Flow Rate FiO2 02/08/17 09:24 81 140/74 02/08/17 07:00 100.2 16 100 Room Air 100.2 Intake and Output 02/08/17 07:00 Intake Total 1500 ml Balance 1500 ml Intake Oral 1500 ml # Voids 2 PHYSICAL EXAM Alert. Oriented to time, place and person. PERRL. EOMI. CN: no focal findings. Muscle tone: normal. Muscle strength: 5/5 DTR: 2+ Plantar reflex: Flexor Gait: Normal. Sensory exam: no abnormal findings. No cerebellar signs elicited. Review of Relevant I have reviewed the following items talia (where applicable) has been applied. Labs Laboratory Tests Test 02/06/17 18:39 02/06/17 18:42 02/06/17 18:44 02/06/17 18:51 White Blood Count 5.6x10^3/uL (4.0-11.0) Red Blood Count 4.00x10^6/uL (3.50-5.40) Hemoglobin 11.1g/dL (12.0-15.5) Hematocrit 34.0% (36.0-47.0) Mean Corpuscular Volume 85fL (79-100) Mean Corpuscular Hemoglobin 28pg (25-35) Mean Corpuscular Hemoglobin Concent 33g/dL (31-37) Red Cell Distribution Width 14.6% (11.5-14.5) Platelet Count 252x10^3/uL (140-400) Neutrophils (%) (Auto) 61% (31-73) Lymphocytes (%) (Auto) 32% (24-48) Monocytes (%) (Auto) 5% (0-9) Eosinophils (%) (Auto) 2% (0-3) Basophils (%) (Auto) 1% (0-3) Neutrophils # (Auto) 3.4x10^3uL (1.8-7.7) Lymphocytes # (Auto) 1.8x10^3/uL (1.0-4.8) Monocytes # (Auto) 0.3x10^3/uL (0.0-1.1) Eosinophils # (Auto) 0.1x10^3/uL (0.0-0.7) Basophils # (Auto) 0.0x10^3/uL (0.0-0.2) Prothrombin Time 12.9SEC (11.7-14.0) Prothromb Time International Ratio 1.0 (0.8-1.1) Troponin I Quantitative 0.033ng/mL (0.000-0.055) OM-Rgz-U-Type Natriuretic Peptide 43pg/mL (0-124) Lipase 206U/L (73-393) Bedside Troponin I 0.00ng/ml (<0.08) Bedside Hemoglobin 11.9g/dL (12-15) Bedside Hematocrit 35% (36-40) Bedside Sodium 138mmol/L (135-145) Bedside Potassium 3.6mmol/L (3.5-5.0) Bedside Chloride 104mmol/L (98-110) Bedside Total CO2 21mmol/L (23-32) Anion Gap 17mmol/L (6-14) Bedside Blood Urea Nitrogen 19mg/dL (8-26) Bedside Creatinine 0.7mg/dL (0.5-1.4) Glucose Level 88mg/dL (70-99) Bedside Ionized Calcium (John) 1.10mmol/L (1.13-1.32) D-Dimer (Perla) 0.52ug/mlFEU (0.00-0.50) Test 02/07/17 04:30 02/07/17 10:15 White Blood Count 4.2x10^3/uL (4.0-11.0) Red Blood Count 3.96x10^6/uL (3.50-5.40) Hemoglobin 11.1g/dL (12.0-15.5) Hematocrit 33.7% (36.0-47.0) Mean Corpuscular Volume 85fL (79-100) Mean Corpuscular Hemoglobin 28pg (25-35) Mean Corpuscular Hemoglobin Concent 33g/dL (31-37) Red Cell Distribution Width 14.6% (11.5-14.5) Platelet Count 236x10^3/uL (140-400) Neutrophils (%) (Auto) 59% (31-73) Lymphocytes (%) (Auto) 33% (24-48) Monocytes (%) (Auto) 5% (0-9) Eosinophils (%) (Auto) 3% (0-3) Basophils (%) (Auto) 1% (0-3) Neutrophils # (Auto) 2.5x10^3uL (1.8-7.7) Lymphocytes # (Auto) 1.4x10^3/uL (1.0-4.8) Monocytes # (Auto) 0.2x10^3/uL (0.0-1.1) Eosinophils # (Auto) 0.1x10^3/uL (0.0-0.7) Basophils # (Auto) 0.0x10^3/uL (0.0-0.2) Sodium Level 143mmol/L (136-145) Potassium Level 4.1mmol/L (3.5-5.1) Chloride Level 107mmol/L (98-107) Carbon Dioxide Level 26mmol/L (21-32) Anion Gap 10 (6-14) Blood Urea Nitrogen 18mg/dL (7-20) Creatinine 0.7mg/dL (0.6-1.0) Estimated GFR (Cockcroft-Gault) 103.3 BUN/Creatinine Ratio 26 (6-20) Glucose Level 99mg/dL (70-99) Calcium Level 8.8mg/dL (8.5-10.1) Total Bilirubin 0.4mg/dL (0.2-1.0) Aspartate Amino Transf (AST/SGOT) 21U/L (15-37) Alanine Aminotransferase (ALT/SGPT) 23U/L (14-59) Alkaline Phosphatase 42U/L (46-116) Troponin I Quantitative 0.046ng/mL (0.000-0.055) 0.031ng/mL (0.000-0.055) Total Protein 6.9g/dL (6.4-8.2) Albumin 3.5g/dL (3.4-5.0) Albumin/Globulin Ratio 1.0 (1.0-1.7) Triglycerides Level 37mg/dL (0-150) Cholesterol Level 154mg/dL (0-200) LDL Cholesterol, Calculated 92mg/dL (0-100) VLDL Cholesterol, Calculated 7mg/dL (0-40) HDL Cholesterol 55mg/dL (40-60) Cholesterol/HDL Ratio 2.8 Medications Current Medications Nitroglycerin (Nitrostat) 0.4 mg PRN Q5MIN PRN SL CP RATING > 1/10; Start 02/06 at 18:45; Stop 02/07/17 at 18:44; Status DC Fentanyl Citrate (Fentanyl 2ml Vial) 25 mcg PRN Q15MIN PRN IV PAIN GREATER THAN 3/10 Last administered on 02/06/17 20:03; Start 02/06/17 at 18:45; Stop at 13:29; Status DC Aspirin (Carlos Aspirin) 325 mg 1X ONCE PO Last administered on 02/06/17 20:03 ; Start 02/06/17 at 20:00; Stop 02/06/17 at 20:01; Status DC Iohexol (Omnipaque 300 Mg/ml) 75 ml 1X ONCE IV Last administered on 02/06/17 20:12; Start 02/06/17 at 20:00; Stop 02/06/17 at 20:01; Status DC Sumatriptan Succinate (Imitrex) 50 mg PRN Q2HR PRN PO MIGRAINE HEADACHE Last administered on 02/07/17 21:42; Start 02/06/17 at 23:15 Morphine Sulfate (Morphine Ir) 15 mg PRN Q4HRS PRN PO SEVERE PAIN; Start at 23:15 Hydroxychloroquine Sulfate (Plaquenil) 200 mg DAILY PO Last administered on 09:23; Start 02/07/17 at 09:00 Enoxaparin Sodium (Lovenox Per Pharmacy Prophylaxis Dosing) 1 each PRN DAILY PRN MC SEE COMMENTS; Start 02/06/17 at 23:15; Stop 02/07/17 at 13:28; Status DC Enoxaparin Sodium (Lovenox 40mg Syringe) 40 mg DAILY SQ Last administered on 08:53; Start 02/07/17 at 09:00 Folic Acid (Folic Acid) 1 mg DAILY PO Last administered on 02/08/17 09:23; Start 02/07/17 at 09:00 Methotrexate (Rheumatrex) 10 mg WEEKLY PO ; Start 02/13/17 at 09:00 Nifedipine (Procardia Xl) 30 mg DAILY PO Last administered on 02/08/17 09:24; Start 02/07/17 at 09:00 Lisinopril (Prinivil) 10 mg DAILY PO Last administered on 02/08/17 09:23; Start 02/07/17 at 09:00 Ondansetron HCl (Zofran) 4 mg PRN Q8HRS PRN IV NAUSEA/VOMITING; Start 02/07/17 at 00:00; Stop 02/07/17 at 23:59; Status DC Hydrochlorothiazide (Microzide) 12.5 mg DAILY PO Last administered on 09:23; Start 02/07/17 at 09:00 Regadenoson (Lexiscan) 0.4 mg 1X ONCE IV Last administered on 02/07/17 11:13 ; Start 02/07/17 at 10:45; Stop 02/07/17 at 10:46; Status DC Lorazepam (Ativan) 1 mg 1X PRN PRN IV SEDATION Last administered on 02/08/17 08:05; Start 02/08/17 at 05:00; Stop 02/09/17 at 05:00 Gadobutrol (Gadavist) 7.5 mmol 1X ONCE IV Last administered on 02/08/17 09:01 ; Start 02/08/17 at 08:45; Stop 02/08/17 at 08:48; Status DC Active Scripts Active Reported Methotrexate (Methotrexate Sodium) 2.5 Mg Tablet 4 Tab PO WEEKLY Nifedipine 10 Mg Capsule 30 Mg PO DAILY Hydroxychloroquine Sulfate 200 Mg Tablet 200 Mg PO DAILY Folic Acid 1 Mg Tablet 1 Tab PO DAILY Lisinopril-Hctz 10-12.5 Mg Tab (Lisinopril/Hydrochlorothiazide) 1 Each Tablet 1 Tab PO DAILY Vitals/I & O Vital Sign - Last 24 Hours 02/07/17 02/07/17 02/07/17 02/08/17 19:00 20:00 23:00 02:00 Temp 98.3 98.1 98.3 98.1 Pulse 71 67 Resp 19 18 B/P 95/58 101/55 Pulse Ox 95 97 O2 Delivery Room Air Room Air Room Air Room Air 02/08/17 02/08/17 02/08/17 02/08/17 03:00 07:00 09:23 09:24 Temp 98.1 100.2 98.1 100.2 Pulse 63 68 81 81 Resp 18 16 B/P 106/64 115/48 140/74 140/74 Pulse Ox 100 100 O2 Delivery Room Air Room Air Intake and Output 02/07/17 02/07/17 02/08/17 15:00 23:00 07:00 Intake Total 250 ml 1050 ml 200 ml Balance 250 ml 1050 ml 200 ml Images MRI brain with MR angiogram normal, but radiology interpretation is pending DEBORAH SANCHEZ MD Feb 08, 2017 10:56
--- NOTE | 2017-02-08 11:06 | RAD ---
PROCEDURE MRI of the brain without and with contrast 02/08/2017 HISTORY Worsening headaches for 1 week. TECHNIQUE Unenhanced T1 weighted sagittal and axial, T2 weighted axial and coronal and FLAIR, gradient echo and diffusion weighted axial images of the brain were obtained. After the intravenous administration of 7.5 cc of Gadavist, enhanced T1 weighted axial and coronal images of the brain were obtained. FINDINGS Comparison is made to the CT scan of head dated 02/06/2017. The ventricles and sulci are within normal limits in size and configuration. Patchy and several small scattered areas of increased signal intensity are seen within the periventricular and subcortical white matter both cerebral hemispheres on the FLAIR and T2 weighted images consistent with areas of minimal small vessel ischemic disease. No acute parenchymal abnormality is seen. No extra-axial fluid collection is noted. There is no MRI evidence of acute ischemia/infarction. No area of abnormal contrast enhancement is seen. Mild to moderate mucosal thickening is seen involving the left maxillary sinus. Mild mucosal thickening is seen involving scattered ethmoid air cells bilaterally. Normal flow voids are seen within the major vascular structures surrounding the brain parenchyma. IMPRESSION No acute parenchymal abnormality is seen. Electronically signed by: Kip Mejia MD (Feb 08, 2017 11:05:04)
--- NOTE | 2017-02-08 11:08 | RAD ---
PROCEDURE MRA of the head without contrast 02/08/2017 HISTORY Worsening headaches for 1 week. TECHNIQUE Using 3D [id number] techniques, a MRA of the major arterial structures surrounding the [place] was performed. Multiplanar 3D MIP reconstructed images were obtained. FINDINGS MRA images of the anterior and posterior circulations are within normal limits. No area of stenosis or occlusion is seen. No intracranial aneurysm is noted. IMPRESSION Negative study. Electronically signed by: Kip Mejia MD (Feb 08, 2017 11:07:27)
[2017-02-08] MEDS ORDERED: SUMA25TA3 PO (11:10)
--- NOTE | 2017-02-08 11:18 | PDOC3 ---
Discharge Summary Visit Information Date of Admission: Feb 06, 2017 Date of Discharge: Feb 08, 2017 Admitting Diagnosis: HOYOS, chest pain Final Diagnosis chest pain at rest. sensation of tightness to left arm, anginal equivalent, Lupus, headache, migranous, Hx DVT, remote htn, benign small skin lesion on foot, NOS Problems Medical Problems: (1) Chest pain Status: Acute (2) Headache Status: Acute Brief Hospital Course Allergies Allergies Coded Allergies Type Severity Reaction Last Updated Verified Penicillins Allergy Intermediate 02/07/17 Yes Vital Signs Vital Signs Date Time Temp Pulse Resp B/P Pulse Ox O2 Delivery O2 Flow Rate FiO2 02/08/17 09:24 81 140/74 02/08/17 07:00 100.2 16 100 Room Air 100.2 Lab Results Laboratory Tests Test 02/06/17 18:39 02/06/17 18:42 02/06/17 18:44 02/06/17 18:51 White Blood Count 5.6x10^3/uL (4.0-11.0) Red Blood Count 4.00x10^6/uL (3.50-5.40) Hemoglobin 11.1g/dL (12.0-15.5) Hematocrit 34.0% (36.0-47.0) Mean Corpuscular Volume 85fL (79-100) Mean Corpuscular Hemoglobin 28pg (25-35) Mean Corpuscular Hemoglobin Concent 33g/dL (31-37) Red Cell Distribution Width 14.6% (11.5-14.5) Platelet Count 252x10^3/uL (140-400) Neutrophils (%) (Auto) 61% (31-73) Lymphocytes (%) (Auto) 32% (24-48) Monocytes (%) (Auto) 5% (0-9) Eosinophils (%) (Auto) 2% (0-3) Basophils (%) (Auto) 1% (0-3) Neutrophils # (Auto) 3.4x10^3uL (1.8-7.7) Lymphocytes # (Auto) 1.8x10^3/uL (1.0-4.8) Monocytes # (Auto) 0.3x10^3/uL (0.0-1.1) Eosinophils # (Auto) 0.1x10^3/uL (0.0-0.7) Basophils # (Auto) 0.0x10^3/uL (0.0-0.2) Prothrombin Time 12.9SEC (11.7-14.0) Prothromb Time International Ratio 1.0 (0.8-1.1) Troponin I Quantitative 0.033ng/mL (0.000-0.055) KU-Xac-[id number]-Type Natriuretic Peptide 43pg/mL (0-124) Lipase 206U/L (73-393) Bedside Troponin I 0.00ng/ml (<0.08) Bedside Hemoglobin 11.9g/dL (12-15) Bedside Hematocrit 35% (36-40) Bedside Sodium 138mmol/L (135-145) Bedside Potassium 3.6mmol/L (3.5-5.0) Bedside Chloride 104mmol/L (98-110) Bedside Total CO2 21mmol/L (23-32) Anion Gap 17mmol/L (6-14) Bedside Blood Urea Nitrogen 19mg/dL (8-26) Bedside Creatinine 0.7mg/dL (0.5-1.4) Glucose Level 88mg/dL (70-99) Bedside Ionized Calcium (John) 1.10mmol/L (1.13-1.32) D-Dimer (Perla) 0.52ug/mlFEU (0.00-0.50) Test 02/07/17 04:30 02/07/17 10:15 White Blood Count 4.2x10^3/uL (4.0-11.0) Red Blood Count 3.96x10^6/uL (3.50-5.40) Hemoglobin 11.1g/dL (12.0-15.5) Hematocrit 33.7% (36.0-47.0) Mean Corpuscular Volume 85fL (79-100) Mean Corpuscular Hemoglobin 28pg (25-35) Mean Corpuscular Hemoglobin Concent 33g/dL (31-37) Red Cell Distribution Width 14.6% (11.5-14.5) Platelet Count 236x10^3/uL (140-400) Neutrophils (%) (Auto) 59% (31-73) Lymphocytes (%) (Auto) 33% (24-48) Monocytes (%) (Auto) 5% (0-9) Eosinophils (%) (Auto) 3% (0-3) Basophils (%) (Auto) 1% (0-3) Neutrophils # (Auto) 2.5x10^3uL (1.8-7.7) Lymphocytes # (Auto) 1.4x10^3/uL (1.0-4.8) Monocytes # (Auto) 0.2x10^3/uL (0.0-1.1) Eosinophils # (Auto) 0.1x10^3/uL (0.0-0.7) Basophils # (Auto) 0.0x10^3/uL (0.0-0.2) Sodium Level 143mmol/L (136-145) Potassium Level 4.1mmol/L (3.5-5.1) Chloride Level 107mmol/L (98-107) Carbon Dioxide Level 26mmol/L (21-32) Anion Gap 10 (6-14) Blood Urea Nitrogen 18mg/dL (7-20) Creatinine 0.7mg/dL (0.6-1.0) Estimated GFR (Cockcroft-Gault) 103.3 BUN/Creatinine Ratio 26 (6-20) Glucose Level 99mg/dL (70-99) Calcium Level 8.8mg/dL (8.5-10.1) Total Bilirubin 0.4mg/dL (0.2-1.0) Aspartate Amino Transf (AST/SGOT) 21U/L (15-37) Alanine Aminotransferase (ALT/SGPT) 23U/L (14-59) Alkaline Phosphatase 42U/L (46-116) Troponin I Quantitative 0.046ng/mL (0.000-0.055) 0.031ng/mL (0.000-0.055) Total Protein 6.9g/dL (6.4-8.2) Albumin 3.5g/dL (3.4-5.0) Albumin/Globulin Ratio 1.0 (1.0-1.7) Triglycerides Level 37mg/dL (0-150) Cholesterol Level 154mg/dL (0-200) LDL Cholesterol, Calculated 92mg/dL (0-100) VLDL Cholesterol, Calculated 7mg/dL (0-40) HDL Cholesterol 55mg/dL (40-60) Cholesterol/HDL Ratio 2.8 Brief Hospital Course Ms. De Los Santos is a 61 old female, that works here admit with chest pain and headache. migrane HOYOS, better with PRN meds CT angio - neg for PE, 5 millimeter pulmonary nodule MPI cardiac stress Conclusion 1. Regadenoson cardioisotope stress test did not show any evidence of ischemia or infarct. 2. Normal left ventricular systolic function with ejection fraction calculated at 83%. 3. Low risk for cardiac events. Brain MRI IMPRESSION No acute parenchymal abnormality is seen. Discharge Information Condition at Discharge: Improved Follow Up: Weeks Disposition/Orders: D/C to Home Scheduled Folic Acid (Folic Acid) 1 TAB PO DAILY (Reported) Hydroxychloroquine Sulfate (Hydroxychloroquine Sulfate) 200 MG PO DAILY ( Reported) Lisinopril/Hydrochlorothiazide (Lisinopril-Hctz 10-12.5 Mg Tab) 1 TAB PO DAILY ( Reported) Methotrexate Sodium (Methotrexate) 4 TAB PO WEEKLY (Reported) Nifedipine (Nifedipine) 30 MG PO DAILY (Reported) Patient Instructions Patient Instructions time >: 30 min small skin lesion on right foot, referred to Derm, may be done outpatient YING FRANK MD Feb 08, 2017 11:18
[2017-02-08 11:22] VITALS: BP 110/68
[2017-02-13] MEDS ORDERED: METHOTREXATE SODIUM 2.5 MG TABLET PO SCH (09:00)
== END 2017-02-08 13:19 | disposition home or self-care (01) | DRG 103 ==
LOC: ER 18:13 → 5 NORTH 20:38
PROVIDERS: ADMIT Internal Medicine; ATTEND Internal Medicine
DX: G43.909 Migraine, unspecified, not intractable, without status migrainosus (principal); I20.8 Other forms of angina pectoris; I10 Essential (primary) hypertension; J45.909 Unspecified asthma, uncomplicated; K21.9 Gastro-esophageal reflux disease without esophagitis; L98.9 Disorder of the skin and subcutaneous tissue, unspecified; M32.9 Systemic lupus erythematosus, unspecified; M19.90 Unspecified osteoarthritis, unspecified site; Z96.641 Presence of right artificial hip joint; Z86.718 Personal history of other venous thrombosis and embolism; Z87.891 Personal history of nicotine dependence; Z90.49 Acquired absence of other specified parts of digestive tract; Z90.710 Acquired absence of both cervix and uterus; Z88.0 Allergy status to penicillin
CPT/HCPCS: 36415; 70450; 70544; 70553; 71010; 71275; 78452; 80047; 80053; 80061; 83690; 83880; 84484; 85027; 85379; 85610; 93005; 93017; 93306; 96374; 96375; 96376; A9500; J1650; J2060; J2785; J3010; Q9967; 99285-25; A9585

== ENCOUNTER → 2017-06-26 | Outpatient (CLI) | payer OTHER ==
[~2017-06-26] MED LIST changes: -NIFE10CA2 PO; +NIFE10CA48 PO; +SUMA25TA3 PO
--- NOTE | 2017-06-26 15:57 | RAD ---
DATE: 06/26/2017 EXAM: DIGITAL SCREEN BILAT W/CAD HISTORY: Screening study. COMPARISON: 07/29/2015 This study was interpreted with the benefit of Computerized Aided Detection (CAD). FINDINGS: Digital MLO and CC mammograms of both breasts were obtained. Comparison study is dated 07/29/2015. The breast parenchyma is heterogeneously dense which can obscure a lesion on mammography (breast density code C). No spiculated mass is seen. No malignant appearing calcification or area of architectural distortion is noted. Benign-appearing calcifications are seen within both breasts. Since the previous examination there has been no significant interval change. IMPRESSION: BI-RADS Category 1, negative. There is no mammographic evidence of malignancy. Routine yearly screening mammography is recommended for follow-up. BI-RADS CATEGORY: 1 NEGATIVE RECOMMENDED FOLLOW-UP: 12M 12 MONTH FOLLOW-UP PQRS compliance statement: Patient information was entered into a reminder system with a target due date 06/26/2018 for the next mammogram. Mammography is a sensitive method for finding small breast cancers, but it does not detect them all and is not a substitute for careful clinical examination. A negative mammogram does not negate a clinically suspicious finding and should not result in delay in biopsying a clinically suspicious abnormality. "Our facility is accredited by the [employer] Mammography Program."
== END | disposition home or self-care (01) ==
LOC: MAMMO 15:31
PROVIDERS: ATTEND Family Medicine
DX: Z12.31 Encounter for screening mammogram for malignant neoplasm of breast (principal)
CPT/HCPCS: G0202; 77067

== ENCOUNTER → 2017-07-10 | Outpatient (CLI) | payer OTHER ==
[2017-07-10 09:30] LABS: BASO % 1 % (0-3); EOS % 1 % (0-3); HEMATOCRIT 39.7 % (36.0-47.0); HEMOGLOBIN 13.3 g/dL (12.0-15.5); LYMPH # 1.7 x10^3/uL (1.0-4.8); LYMPH % 37 % (24-48); MEAN CORPUSCULAR HEMOGLOBIN 28 pg (25-35); MEAN CORPUSCULAR HGB CONC 33 g/dL (31-37); MEAN CORPUSCULAR VOLUME 84 fL (79-100); MONO % 5 % (0-9); NEUT % 56 % (31-73); PLATELET COUNT 275 x10^3/uL (140-400); RED BLOOD COUNT 4.76 x10^6/uL (3.50-5.40); RED CELL DISTRIBUTION WIDTH 14.3 % (11.5-14.5); WHITE BLOOD COUNT 4.6 x10^3/uL (4.0-11.0)
[2017-07-10 09:37] LABS: ALBUMIN 4.1 g/dL (3.4-5.0); C-REACTIVE PROTEIN 0.9 mg/L (0-3.3); CALCIUM 8.9 mg/dL (8.5-10.1); CREATININE 0.8 mg/dL (0.6-1.0); GFR 88.5; TOTAL BILIRUBIN 0.4 mg/dL (0.2-1.0); TOTAL PROTEIN 8.4 g/dL (6.4-8.2)
== END | disposition home or self-care (01) ==
LOC: SPEC 09:14
PROVIDERS: ATTEND Internal Medicine Rheumatology
DX: Z51.81 Encounter for therapeutic drug level monitoring (principal); Z79.899 Other long term (current) drug therapy
CPT/HCPCS: 36415; 80053; 85025; 85651; 86140

== ENCOUNTER → 2017-10-02 | Outpatient (CLI) | payer OTHER ==
[2017-10-02 09:03] LABS: BASO % 0 % (0-3); EOS % 1 % (0-3); HEMATOCRIT 39.2 % (36.0-47.0); HEMOGLOBIN 12.5 g/dL (12.0-15.5); LYMPH # 1.4 x10^3/uL (1.0-4.8); LYMPH % 28 % (24-48); MEAN CORPUSCULAR HEMOGLOBIN 27 pg (25-35); MEAN CORPUSCULAR HGB CONC 32 g/dL (31-37); MEAN CORPUSCULAR VOLUME 85 fL (79-100); MONO % 4 % (0-9); NEUT % 66 % (31-73); PLATELET COUNT 279 x10^3/uL (140-400); RED BLOOD COUNT 4.62 x10^6/uL (3.50-5.40); WHITE BLOOD COUNT 5.1 x10^3/uL (4.0-11.0)
[2017-10-02 09:18] LABS: ALBUMIN 3.9 g/dL (3.4-5.0); ALBUMIN/GLOBULIN RATIO 0.8 (1.0-1.7); C-REACTIVE PROTEIN 1.1 mg/L (0-3.3); CALCIUM 9.2 mg/dL (8.5-10.1); CREATININE 0.8 mg/dL (0.6-1.0); GFR 88.2; POTASSIUM 3.9 mmol/L (3.5-5.1); TOTAL BILIRUBIN 0.4 mg/dL (0.2-1.0); TOTAL PROTEIN 8.5 g/dL (6.4-8.2)
== END | disposition home or self-care (01) ==
LOC: SPEC 08:48
PROVIDERS: ATTEND Internal Medicine Rheumatology
DX: Z51.81 Encounter for therapeutic drug level monitoring (principal); Z79.899 Other long term (current) drug therapy
CPT/HCPCS: 36415; 80053; 85025; 85651; 86140

== ENCOUNTER → 2017-10-04 | Day surgery (SDC) | payer OTHER ==
[~2017-10-04] MED LIST changes: +HYDROmorphone 2 MG/ML VIAL IV PRN; +IV RINGERS,LACTATED 1000ML 1,000 ML IV SCH; +LIDOCAINE 1% PF 2 ML VIAL. ID PRN; +LIDOCAINE 2% PF Vial for OR 5 ML VIAL. ONE; +MORPHINE SULFATE 2 MG/ML DISP.SYRIN. IV PRN; +ONDANSETRON PF 4 MG/2 ML VIAL. IV PRN; +PROCHLORPERAZINE 10 MG/2 ML VIAL. IV PRN; +PROPOFOL 20 ML IV ONE; +fentaNYL PF VIAL 100 MCG/2 ML VIAL IV PRN
[2017-10-04 14:11] VITALS: BP 131/64
== END | disposition home or self-care (01) ==
LOC: SURG 12:32
PROVIDERS: ATTEND Internal Medicine Gastroenterology
DX: K64.0 First degree hemorrhoids (principal); K57.30 Diverticulosis of large intestine without perforation or abscess without bleeding; Z80.0 Family history of malignant neoplasm of digestive organs; K21.0 Gastro-esophageal reflux disease with esophagitis; K29.50 Unspecified chronic gastritis without bleeding; I10 Essential (primary) hypertension; D64.9 Anemia, unspecified; Z86.69 Personal history of other diseases of the nervous system and sense organs; Z86.718 Personal history of other venous thrombosis and embolism; Z98.890 Other specified postprocedural states; Z90.710 Acquired absence of both cervix and uterus; Z87.39 Personal history of other diseases of the musculoskeletal system and connective tissue; Z72.89 Other problems related to lifestyle; Z88.0 Allergy status to penicillin; Z91.040 Latex allergy status
CPT/HCPCS: 43239; 45378; 88305; J2704; J2001

== ENCOUNTER → 2017-12-21 | Outpatient (CLI) | payer OTHER ==
[2017-12-21 09:00] LABS: ADD MAN DIFF? NO
[2017-12-21 10:45] LABS: BASO % 0 % (0-3); EOS % 0 % (0-3); HEMATOCRIT 40.6 % (36.0-47.0); HEMOGLOBIN 13.4 g/dL (12.0-15.5); LYMPH # 1.8 x10^3/uL (1.0-4.8); LYMPH % 23 % (24-48); MEAN CORPUSCULAR HEMOGLOBIN 28 pg (25-35); MEAN CORPUSCULAR HGB CONC 33 g/dL (31-37); MEAN CORPUSCULAR VOLUME 85 fL (79-100); MONO # 0.3 x10^3/uL (0.0-1.1); MONO % 4 % (0-9); NEUT # 5.9 x10^3uL (1.8-7.7); NEUT % 73 % (31-73); PLATELET COUNT 284 x10^3/uL (140-400); RED BLOOD COUNT 4.79 x10^6/uL (3.50-5.40); RED CELL DISTRIBUTION WIDTH 14.4 % (11.5-14.5); WHITE BLOOD COUNT 8.1 x10^3/uL (4.0-11.0)
[2017-12-21 10:53] LABS: BILIRUBIN,URINE NEGATIVE (NEG); CLARITY,URINE CLEAR; COLOR,URINE YELLOW; GLUCOSE,URINE NEGATIVE (NEG); NITRITE,URINE NEGATIVE (NEG); PROTEIN,URINE NEGATIVE (NEG-TRACE); UROBILINOGEN,URINE 0.2 mg/dL (0.2 mg/dL)
[2017-12-21 11:02] LABS: BACTERIA,URINE FEW /HPF (0-FEW); SQUAMOUS EPITHELIAL CELL,UR FEW /LPF
[2017-12-21 11:04] LABS: RBC,URINE OCC /HPF (0-2)
[2017-12-21 11:05] LABS: ALBUMIN 4.1 g/dL (3.4-5.0); ALBUMIN/GLOBULIN RATIO 0.9 (1.0-1.7); ALK PHOS 56 U/L (46-116); ALT (SGPT) 21 U/L (14-59); ANION GAP 6 (6-14); AST (SGOT) 21 U/L (15-37); BLOOD UREA NITROGEN 16 mg/dL (7-20); BUN/CREATININE RATIO 18 (6-20); CARBON DIOXIDE 30 mmol/L (21-32); CHLORIDE 102 mmol/L (98-107); CHOLESTEROL 190 mg/dL (0-200); CHOLESTEROL/HDL RATIO 2.6; CREATININE 0.9 mg/dL (0.6-1.0); GLUCOSE 87 mg/dL (70-99); HDLC 72 mg/dL (40-60); LDLC 102 mg/dL (0-100); NON-HDL CHOLESTEROL 118 mg/dL (0-129); POTASSIUM 3.4 mmol/L (3.5-5.1); SODIUM 138 mmol/L (136-145); TOTAL BILIRUBIN 0.3 mg/dL (0.2-1.0); TOTAL PROTEIN 8.7 g/dL (6.4-8.2); TRIGLYCERIDES 79 mg/dL (0-150); VLDLC 16 mg/dL (0-40)
[2017-12-21 11:22] LABS: THYROID STIM HORMONE (TSH) 1.107 uIU/mL (0.358-3.74)
[2017-12-21 13:01] LABS: SEDIMENTATION RATE 7 (0-25)
[2017-12-22 02:15] LABS: HEMOGLOBIN A1C 5.6 % (4.8-5.6)
== END | disposition home or self-care (01) ==
LOC: SPEC 08:20
DX: I10 Essential (primary) hypertension (principal)
CPT/HCPCS: 36415; 80053; 80061; 81001; 83036; 84443; 85025; 85651

== ENCOUNTER 2017-12-31 01:07 | Emergency (ER) | payer OTHER ==
[2017-12-31 03:35] LABS: BASO % 0 % (0-3); EOS % 0 % (0-3); HEMOGLOBIN 12.9 g/dL (12.0-15.5); LYMPH # 0.8 x10^3/uL (1.0-4.8); LYMPH % 6 % (24-48); MEAN CORPUSCULAR HEMOGLOBIN 28 pg (25-35); MEAN CORPUSCULAR HGB CONC 33 g/dL (31-37); MEAN CORPUSCULAR VOLUME 84 fL (79-100); MONO # 0.5 x10^3/uL (0.0-1.1); MONO % 4 % (0-9); NEUT # 13.1 x10^3uL (1.8-7.7); NEUT % 91 % (31-73); PLATELET COUNT 283 x10^3/uL (140-400); RED BLOOD COUNT 4.65 x10^6/uL (3.50-5.40); WHITE BLOOD COUNT 14.5 x10^3/uL (4.0-11.0)
[2017-12-31 03:36] LABS: BILIRUBIN,URINE NEGATIVE (NEG); CLARITY,URINE CLEAR; COLOR,URINE YELLOW; GLUCOSE,URINE NEGATIVE (NEG); NITRITE,URINE NEGATIVE (NEG); PH,URINE 5.5; PROTEIN,URINE NEGATIVE (NEG-TRACE); UROBILINOGEN,URINE 0.2 mg/dL (0.2 mg/dL)
[2017-12-31 03:37] LABS: ADD MAN DIFF? YES
[2017-12-31 03:45] LABS: ANION GAP 10 (6-14); BLOOD UREA NITROGEN 25 mg/dL (7-20); BUN/CREATININE RATIO 19 (6-20); CALCIUM 9.6 mg/dL (8.5-10.1); CARBON DIOXIDE 27 mmol/L (21-32); CHLORIDE 99 mmol/L (98-107); CREATININE 1.3 mg/dL (0.6-1.0); GFR 50.4; GLUCOSE 123 mg/dL (70-99); POTASSIUM 4.1 mmol/L (3.5-5.1); SODIUM 136 mmol/L (136-145)
[2017-12-31 03:47] LABS: BACTERIA,URINE 0 /HPF (0-FEW); RBC,URINE 0 /HPF (0-2); SQUAMOUS EPITHELIAL CELL,UR FEW /LPF; WBC,URINE RARE /HPF (0-4)
[2017-12-31 03:51] LABS: ALBUMIN/GLOBULIN RATIO 0.8 (1.0-1.7); ALK PHOS 59 U/L (46-116); ALT (SGPT) 27 U/L (14-59); AST (SGOT) 32 U/L (15-37); TOTAL BILIRUBIN 0.4 mg/dL (0.2-1.0); TOTAL PROTEIN 9.1 g/dL (6.4-8.2)
[2017-12-31] MEDS: fentaNYL PF VIAL 100 MCG/2 ML VIAL IV ×3 (04:07)
[2017-12-31] MEDS: ONDANSETRON PF 4 MG/2 ML VIAL. IV ×3 (04:07)
[2017-12-31] MEDS ORDERED: CONTRAST GIVEN MC ×3 (04:15)
[2017-12-31 04:19] LABS: % BANDS 1 % (0-9); % LYMPHS 9 % (24-48); % MONOS 2 % (0-10); % SEGS 88 % (35-66); PLT ESTIMATE ADEQUATE (ADEQUATE)
[2017-12-31] MEDS: IOHEXOL 300 MG/ML 100ML VIAL. IV ×3 (04:35)
== END 2017-12-31 05:30 | disposition home or self-care (01) ==
LOC: ER 01:07
DX: K57.30 Diverticulosis of large intestine without perforation or abscess without bleeding (principal); D72.829 Elevated white blood cell count, unspecified; I10 Essential (primary) hypertension; M32.9 Systemic lupus erythematosus, unspecified; Z96.649 Presence of unspecified artificial hip joint; Z90.710 Acquired absence of both cervix and uterus; Z88.0 Allergy status to penicillin; Z91.040 Latex allergy status
CPT/HCPCS: 36415; 74177; 80053; 81001; 85007; 85025; 96361; 96365; 96374; 96375; 99285-25; J2405; J3010; J3490; Q9967

== ENCOUNTER → 2018-03-26 | Outpatient (CLI) | payer OTHER ==
[2018-03-26 16:27] LABS: ADD MAN DIFF? NO
[2018-03-26 16:34] LABS: BASO % 1 % (0-3); EOS # 0.1 x10^3/uL (0.0-0.7); EOS % 2 % (0-3); HEMATOCRIT 38.2 % (36.0-47.0); HEMOGLOBIN 12.6 g/dL (12.0-15.5); LYMPH # 1.5 x10^3/uL (1.0-4.8); LYMPH % 24 % (24-48); MEAN CORPUSCULAR HEMOGLOBIN 28 pg (25-35); MEAN CORPUSCULAR HGB CONC 33 g/dL (31-37); MEAN CORPUSCULAR VOLUME 85 fL (79-100); MONO # 0.3 x10^3/uL (0.0-1.1); MONO % 4 % (0-9); NEUT # 4.5 x10^3uL (1.8-7.7); NEUT % 70 % (31-73); PLATELET COUNT 298 x10^3/uL (140-400); RED BLOOD COUNT 4.52 x10^6/uL (3.50-5.40); RED CELL DISTRIBUTION WIDTH 15.5 % (11.5-14.5); WHITE BLOOD COUNT 6.4 x10^3/uL (4.0-11.0)
[2018-03-26 17:00] LABS: ALBUMIN 4.1 g/dL (3.4-5.0); ALBUMIN/GLOBULIN RATIO 0.9 (1.0-1.7); ALK PHOS 71 U/L (46-116); ALT (SGPT) 25 U/L (14-59); ANION GAP 7 (6-14); AST (SGOT) 21 U/L (15-37); BLOOD UREA NITROGEN 21 mg/dL (7-20); BUN/CREATININE RATIO 21 (6-20); C-REACTIVE PROTEIN 3.9 mg/L (0-3.3); CALCIUM 9.8 mg/dL (8.5-10.1); CARBON DIOXIDE 30 mmol/L (21-32); CHLORIDE 103 mmol/L (98-107); GFR 68.2; GLUCOSE 87 mg/dL (70-99); POTASSIUM 3.9 mmol/L (3.5-5.1); SODIUM 140 mmol/L (136-145); TOTAL BILIRUBIN 0.3 mg/dL (0.2-1.0); TOTAL PROTEIN 8.9 g/dL (6.4-8.2)
[2018-03-26 17:39] LABS: SEDIMENTATION RATE 16 (0-25)
== END | disposition home or self-care (01) ==
LOC: SPEC 16:25
DX: Z51.81 Encounter for therapeutic drug level monitoring (principal); Z79.899 Other long term (current) drug therapy
CPT/HCPCS: 36415; 80053; 85025; 85651; 86140

== ENCOUNTER → 2018-06-25 | Outpatient (CLI) | payer OTHER ==
[2018-06-25 09:25] LABS: ADD MAN DIFF? NO
[2018-06-25 09:42] LABS: BASO % 1 % (0-3); EOS # 0.1 x10^3/uL (0.0-0.7); EOS % 1 % (0-3); HEMATOCRIT 38.6 % (36.0-47.0); HEMOGLOBIN 12.9 g/dL (12.0-15.5); LYMPH # 1.8 x10^3/uL (1.0-4.8); LYMPH % 32 % (24-48); MEAN CORPUSCULAR HEMOGLOBIN 29 pg (25-35); MEAN CORPUSCULAR HGB CONC 34 g/dL (31-37); MEAN CORPUSCULAR VOLUME 86 fL (79-100); MONO # 0.2 x10^3/uL (0.0-1.1); MONO % 4 % (0-9); NEUT # 3.5 x10^3uL (1.8-7.7); NEUT % 62 % (31-73); PLATELET COUNT 279 x10^3/uL (140-400); RED CELL DISTRIBUTION WIDTH 15.8 % (11.5-14.5); WHITE BLOOD COUNT 5.7 x10^3/uL (4.0-11.0)
[2018-06-25 10:17] LABS: ALBUMIN 4.3 g/dL (3.4-5.0); ALBUMIN/GLOBULIN RATIO 0.9 (1.0-1.7); ALK PHOS 69 U/L (46-116); ALT (SGPT) 31 U/L (14-59); ANION GAP 9 (6-14); AST (SGOT) 26 U/L (15-37); BLOOD UREA NITROGEN 16 mg/dL (7-20); BUN/CREATININE RATIO 20 (6-20); C-REACTIVE PROTEIN 2.1 mg/L (0-3.3); CALCIUM 9.6 mg/dL (8.5-10.1); CARBON DIOXIDE 27 mmol/L (21-32); CHLORIDE 102 mmol/L (98-107); CREATININE 0.8 mg/dL (0.6-1.0); GFR 88.2; GLUCOSE 99 mg/dL (70-99); POTASSIUM 3.8 mmol/L (3.5-5.1); SODIUM 138 mmol/L (136-145); TOTAL BILIRUBIN 0.2 mg/dL (0.2-1.0); TOTAL PROTEIN 8.9 g/dL (6.4-8.2)
[2018-06-25 11:37] LABS: SEDIMENTATION RATE 17 (0-25)
== END | disposition home or self-care (01) ==
LOC: SPEC 09:23
DX: Z51.81 Encounter for therapeutic drug level monitoring (principal); Z79.899 Other long term (current) drug therapy
CPT/HCPCS: 36415; 80053; 85025; 85651; 86140

== ENCOUNTER → 2018-06-28 | Outpatient (CLI) | payer OTHER ==
[2017-12-31 05:31] VITALS: BP 109/58
[~2018-06-28] MED LIST changes: +HYDR-971 PO; -HYDROmorphone 2 MG/ML VIAL IV PRN; -IV RINGERS,LACTATED 1000ML 1,000 ML IV SCH; +LEVO500T59 PO; -LIDOCAINE 1% PF 2 ML VIAL. ID PRN; -LIDOCAINE 2% PF Vial for OR 5 ML VIAL. ONE; +METR500T PO; -MORPHINE SULFATE 2 MG/ML DISP.SYRIN. IV PRN; +ONDA4TAB10 PO; -ONDANSETRON PF 4 MG/2 ML VIAL. IV PRN; -PROCHLORPERAZINE 10 MG/2 ML VIAL. IV PRN; -PROPOFOL 20 ML IV ONE; -fentaNYL PF VIAL 100 MCG/2 ML VIAL IV PRN
--- NOTE | 2018-07-02 15:25 | RAD ---
3d digital tomography Bilateral History: Routine screening Technique: Bilateral 3d digital tomographic views were obtained in the CC and MLO projection. In addition, CAD - computer aided detection was utilized. Comparison: Prior mammogram 06/26/2017, 07/29/2015, 07/23/2014, 01/17/2012. Findings: Breast Tissue Density C : The breast tissue is heterogeneously dense. Scattered fibroglandular elements may obscure underlying pathology. In the upper, slightly outer left breast there is focal architectural distortion, seen best on the tomographic cc view approximately 2 cm from the nipple. No suspicious microcalcification or mass in the left breast. No right breast suspicious masses, microcalcifications or areas of architectural distortion. Impression: Architectural distortion in the left breast for which additional imaging is recommended. Recommendation: Additional imaging to include spot compression views of the CC and MLO projection and possibly ultrasound. BI-RADS Category 0: Incomplete: Need additional imaging evaluation. The patient will receive a letter with the results in the mail. Your mammogram demonstrates that you have dense breast tissue, which could hide abnormalities, and if you have other risk factors for breast cancer that have been identified, you might benefit from supplemental screening tests that may be suggested by your ordering physician. Dense breast tissue, in and of itself, is a relatively common condition. This information is not provided to cause undue concern, but rather to raise your awareness and to promote discussion with your physician regarding the presence of other risk factors, in addition to dense breast tissue. A report of your mammography results will be sent to you and your physician. You should contact your physician if you have any questions or concerns regarding this report. A mammogram does not have 100% sensitivity and therefore a negative imaging study should not delay further work up of a suspicious abnormality. Patient information is entered into the [facility] reminder system using [employer] with a target due date for the next screening mammogram. The patient will receive a reminder. "Our facility is accredited by the [employer] Mammography Program."
== END | disposition home or self-care (01) ==
LOC: MAMMO 14:02
PROVIDERS: ATTEND Family Medicine
DX: Z12.31 Encounter for screening mammogram for malignant neoplasm of breast (principal); M19.90 Unspecified osteoarthritis, unspecified site; I10 Essential (primary) hypertension; Z88.0 Allergy status to penicillin
CPT/HCPCS: 77063; 77067

== ENCOUNTER → 2018-07-23 | Outpatient (CLI) | payer OTHER ==
[2017-12-31 05:31] VITALS: BP 109/58
[2018-07-23 10:32] LABS: BASO % 1 % (0-3); EOS % 1 % (0-3); HEMATOCRIT 37.5 % (36.0-47.0); HEMOGLOBIN 12.6 g/dL (12.0-15.5); LYMPH # 1.5 x10^3/uL (1.0-4.8); LYMPH % 33 % (24-48); MEAN CORPUSCULAR HEMOGLOBIN 29 pg (25-35); MEAN CORPUSCULAR HGB CONC 34 g/dL (31-37); MEAN CORPUSCULAR VOLUME 86 fL (79-100); MONO # 0.2 x10^3/uL (0.0-1.1); MONO % 4 % (0-9); NEUT # 2.8 x10^3uL (1.8-7.7); NEUT % 61 % (31-73); PLATELET COUNT 262 x10^3/uL (140-400); RED BLOOD COUNT 4.35 x10^6/uL (3.50-5.40); RED CELL DISTRIBUTION WIDTH 15.9 % (11.5-14.5); WHITE BLOOD COUNT 4.6 x10^3/uL (4.0-11.0)
[2018-07-23 10:51] LABS: ALBUMIN 4.1 g/dL (3.4-5.0); CREATININE 0.9 mg/dL (0.6-1.0); POTASSIUM 3.6 mmol/L (3.5-5.1); TOTAL BILIRUBIN 0.3 mg/dL (0.2-1.0); TOTAL PROTEIN 8.3 g/dL (6.4-8.2)
[2018-07-23 10:52] LABS: CHOLESTEROL/HDL RATIO 2.8
[2018-07-23 13:34] LABS: BILIRUBIN,URINE NEGATIVE (NEG); CLARITY,URINE CLEAR; COLOR,URINE YELLOW; NITRITE,URINE NEGATIVE (NEG); PH,URINE 5.5; PROTEIN,URINE NEGATIVE (NEG-TRACE); UROBILINOGEN,URINE 0.2 mg/dL (0.2 mg/dL)
[2018-07-23 13:49] LABS: BACTERIA,URINE 0 /HPF (0-FEW); RBC,URINE 0 /HPF (0-2); SQUAMOUS EPITHELIAL CELL,UR FEW /LPF; WBC,URINE RARE /HPF (0-4)
[2018-07-23 20:10] LABS: RHEUMATOID FACTOR <10.0 IU/mL (0.0-13.9)
[2018-07-25 18:18] LABS: ALBUM 4.2 g/dL (2.9-4.4); ALPHA 1 0.2 g/dL (0.0-0.4); ALPHA 2 0.5 g/dL (0.4-1.0); GAMMA 1.9 g/dL (0.4-1.8); PROTEIN TOTAL 7.7 g/dL (6.0-8.5); SPEP AG RATIO 1.2 (0.7-1.7)
[2018-07-26 06:22] LABS: ANA INTERP Negative (.)
== END | disposition home or self-care (01) ==
LOC: SPEC 10:17
PROVIDERS: ATTEND Family Medicine
DX: I10 Essential (primary) hypertension (principal); M32.9 Systemic lupus erythematosus, unspecified; R89.9 Unspecified abnormal finding in specimens from other organs, systems and tissues; J45.909 Unspecified asthma, uncomplicated; E55.9 Vitamin D deficiency, unspecified; K21.9 Gastro-esophageal reflux disease without esophagitis; Z86.2 Personal history of diseases of the blood and blood-forming organs and certain disorders involving the immune mechanism; Z96.641 Presence of right artificial hip joint; Z86.718 Personal history of other venous thrombosis and embolism; Z87.891 Personal history of nicotine dependence; Z87.39 Personal history of other diseases of the musculoskeletal system and connective tissue; Z90.49 Acquired absence of other specified parts of digestive tract; Z90.710 Acquired absence of both cervix and uterus; Z88.0 Allergy status to penicillin; Z80.0 Family history of malignant neoplasm of digestive organs
CPT/HCPCS: 36415; 80053; 80061; 81001; 84165; 84443; 85025; 85651; 86038; 86431

== ENCOUNTER → 2018-07-30 | Outpatient (CLI) | payer OTHER ==
[2017-12-31 05:31] VITALS: BP 109/58
== END | disposition home or self-care (01) ==
LOC: SPEC 16:27
PROVIDERS: ATTEND Nurse Practitioner
DX: R30.0 Dysuria (principal); E55.9 Vitamin D deficiency, unspecified; I10 Essential (primary) hypertension; G43.909 Migraine, unspecified, not intractable, without status migrainosus; K21.9 Gastro-esophageal reflux disease without esophagitis; Z96.641 Presence of right artificial hip joint; Z86.718 Personal history of other venous thrombosis and embolism; Z87.891 Personal history of nicotine dependence; Z88.0 Allergy status to penicillin; Z72.89 Other problems related to lifestyle; Z91.040 Latex allergy status; Z87.39 Personal history of other diseases of the musculoskeletal system and connective tissue; Z86.2 Personal history of diseases of the blood and blood-forming organs and certain disorders involving the immune mechanism; Z86.69 Personal history of other diseases of the nervous system and sense organs; Z90.49 Acquired absence of other specified parts of digestive tract; Z90.710 Acquired absence of both cervix and uterus; Z80.0 Family history of malignant neoplasm of digestive organs
CPT/HCPCS: 87086

== ENCOUNTER → 2018-09-24 | Outpatient (CLI) | payer OTHER ==
[2017-12-31 05:31] VITALS: BP 109/58
[2018-09-24 11:02] LABS: ALBUMIN 4.1 g/dL (3.4-5.0); ALBUMIN/GLOBULIN RATIO 0.8 (1.0-1.7); CALCIUM 9.7 mg/dL (8.5-10.1); CREATININE 0.9 mg/dL (0.6-1.0); GFR 76.8; TOTAL BILIRUBIN 0.3 mg/dL (0.2-1.0)
[2018-09-24 11:08] LABS: BASO % 1 % (0-3); EOS # 0.1 x10^3/uL (0.0-0.7); EOS % 2 % (0-3); LYMPH # 1.7 x10^3/uL (1.0-4.8); LYMPH % 28 % (24-48); MEAN CORPUSCULAR HEMOGLOBIN 29 pg (25-35); MEAN CORPUSCULAR HGB CONC 34 g/dL (31-37); MEAN CORPUSCULAR VOLUME 86 fL (79-100); MONO # 0.2 x10^3/uL (0.0-1.1); MONO % 4 % (0-9); NEUT # 4.1 x10^3uL (1.8-7.7); NEUT % 66 % (31-73); PLATELET COUNT 295 x10^3/uL (140-400); RED BLOOD COUNT 4.53 x10^6/uL (3.50-5.40); RED CELL DISTRIBUTION WIDTH 14.9 % (11.5-14.5); WHITE BLOOD COUNT 6.2 x10^3/uL (4.0-11.0)
[2018-09-26 15:35] LABS: ALPHA 1 0.2 g/dL (0.0-0.4); ALPHA 2 0.6 g/dL (0.4-1.0); PROTEIN TOTAL 7.9 g/dL (6.0-8.5)
== END | disposition home or self-care (01) ==
LOC: SPEC 10:33
PROVIDERS: ATTEND Family Medicine
DX: M32.9 Systemic lupus erythematosus, unspecified (principal)
CPT/HCPCS: 36415; 80053; 84165; 85025; 85651

== ENCOUNTER 2018-10-09 10:41 | Emergency (ER) | payer OTHER ==
[~2018-10-09] VITALS: Ht 167.6 cm; Wt 70.3 kg
[~2018-10-09 10:41] MED LIST changes: +HYDR-3164 PO; -HYDR-971 PO
[2018-10-09 10:56] VITALS: BP 139/62
[2018-10-09] MEDS ORDERED: MUPI22OI2 TP (11:10)
[2018-10-09] MEDS ORDERED: DOXY100T PO (11:10)
--- NOTE | 2018-10-09 11:10 | PHYS DOC ---
Past Medical History Past Medical History: Diverticulitis, Hypertension, Other Additional Past Medical Histor: LUPUS Past Surgical History: Hip Replacement, Hysterectomy, Other Additional Past Surgical Histo: RIGHT HIP , DNC, HERNIA REPAIR Alcohol Use: Occasionally Drug Use: None Adult General Chief Complaint Chief Complaint: INSECT BITE HPI HPI Patient is a 63-year-old female who presents to the emergency department for evaluation. She states that over the past 3-4 hours she developed slight swelling, and some soreness and itching on her right lateral ankle. She denies any definite wounds with suspected she might of had an insect bite. She has not had any fevers or chills. She denies any numbness or weakness. There are no alleviating or exacerbating factors to her symptoms. The patient does have a history of lupus and takes Plaquenil. Review of Systems Review of Systems Constitutional: Denies fever or chills [] Eyes: Denies change in visual acuity, redness, or eye pain [] HENT: Denies nasal congestion or sore throat [] Respiratory: Denies cough or shortness of breath [] GI: Denies abdominal pain, nausea, vomiting, bloody stools or diarrhea [] : Denies dysuria or hematuria [] Musculoskeletal: Denies back pain or joint pain [] Integument: Denies rash or skin lesions except as noted in the history of present illness. [] Neurologic: Denies headache, focal weakness or sensory changes [] Endocrine: Denies polyuria or polydipsia [] All other systems were reviewed and found to be within normal limits, except as documented in this note. Allergies Allergies Allergies Coded Allergies Type Severity Reaction Last Updated Verified latex Allergy Severe SORES AND BLEEDING 10/04/17 Yes Penicillins Allergy Intermediate 10/04/17 Yes Physical Exam Physical Exam PHYSICAL EXAM: HEENT: Atruamatic NECK: Supple, normal ROM, non-tender. CARDIAC: Regular Rate and Rhythm LUNGS: Clear Bilaterally EXTREMITIES: There is mild edema noted to the soft tissues on the lateral aspect of the right ankle, with mild warmth, and erythema, with a small puncture lesion in the center, suggesting the possibility of an insect bite. There is no fluctuance or evidence of abscess. The joint itself is nontender with normal range of motion. There is no edema or soft tissue swelling to the soft tissues the foot, or the calf or lower leg. There is a strong dorsalis pedis pulse. The remainder of the extremities are unremarkable. EKG EKG [] Radiology/Procedures Radiology/Procedures [] Course & Med Decision Making Course & Med Decision Making I suspect the patient might be developing a cellulitis, possibly in relation to an insect bite. I discussed home care plan, the use of topical and oral antibiotics, the need for close follow-up, and return precautions. Dragon Disclaimer Dragon Disclaimer This electronic medical record was generated, in whole or in part, using a voice recognition dictation system. Departure Departure Impression: Primary Impression: Cellulitis Disposition: HOME, SELF-CARE Condition: STABLE Referrals: NOMI DAVIS (PCP) Patient Instructions: Cellulitis, Insect Bite Scripts Mupirocin (MUPIROCIN OINTMENT) 22 Gm Oint...g. 1 SHERRELL TP TID for WOUND CARE, #1 TUBE Prov: ESTELA DE LA ROSA MD 10/09/18 Doxycycline Hyclate (DOXYCYCLINE HYCLATE) 100 Mg Tablet 1 TAB PO BID, #14 TAB Prov: ESTELA DE LA ROSA MD 10/09/18 ESTELA DE LA ROSA MD Oct 09, 2018 11:10
== END 2018-10-09 11:21 | disposition home or self-care (01) ==
LOC: ER 10:41
DX: L03.115 Cellulitis of right lower limb (principal); I10 Essential (primary) hypertension; M32.9 Systemic lupus erythematosus, unspecified; Z88.0 Allergy status to penicillin; Z91.040 Latex allergy status
CPT/HCPCS: 99283

== ENCOUNTER → 2018-11-20 | Outpatient (CLI) | payer OTHER ==
[~2018-11-20] MED LIST changes: +DOXY100T PO; +MUPI22OI2 TP
[2018-11-21 14:20] LABS: KAPPA FREE 22.7 mg/L (3.3-19.4); KAPPA LAMBDA RATIO 1.46 (0.26-1.65); LAMBDA FREE 15.5 mg/L (5.7-26.3)
[2018-11-22 12:18] LABS: CARDIOLIPIN ANTIBODIES SEE SEPARATE REPORT; LUPUS ANTICOAGULANT SEE SEPARATE REPORT
[2018-11-22 15:30] LABS: ALBUMIN RAND UR 19.9 % (.); ALPHA 1 RAND UR 3.6 % (.); ALPHA 2 RAND UR 14.3 % (.); BETA RAND UR 34.9 % (.); GAMMA RAND UR 27.2 % (.); PROTEIN UR RAND 8.7 mg/dL (Not Estab.)
== END | disposition home or self-care (01) ==
LOC: SPEC 07:45
PROVIDERS: ATTEND Internal Medicine Hematology & Oncology
DX: D80.9 Immunodeficiency with predominantly antibody defects, unspecified (principal); D68.61 Antiphospholipid syndrome
CPT/HCPCS: 36415; 82784; 83520; 84166; 85610; 86146; 86147; 86803

== ENCOUNTER → 2018-11-20 | Outpatient (CLI) | payer OTHER ==
[2018-11-20 08:29] LABS: BASO % 1 % (0-3); EOS # 0.1 x10^3/uL (0.0-0.7); EOS % 1 % (0-3); HEMATOCRIT 38.4 % (36.0-47.0); HEMOGLOBIN 12.7 g/dL (12.0-15.5); LYMPH % 20 % (24-48); MEAN CORPUSCULAR HEMOGLOBIN 29 pg (25-35); MEAN CORPUSCULAR HGB CONC 33 g/dL (31-37); MEAN CORPUSCULAR VOLUME 87 fL (79-100); MONO # 0.2 x10^3/uL (0.0-1.1); MONO % 5 % (0-9); NEUT # 3.5 x10^3uL (1.8-7.7); NEUT % 73 % (31-73); PLATELET COUNT 291 x10^3/uL (140-400); RED BLOOD COUNT 4.43 x10^6/uL (3.50-5.40); RED CELL DISTRIBUTION WIDTH 14.4 % (11.5-14.5); WHITE BLOOD COUNT 4.8 x10^3/uL (4.0-11.0)
[2018-11-20 09:05] LABS: ALBUMIN 3.9 g/dL (3.4-5.0); ALBUMIN/GLOBULIN RATIO 0.8 (1.0-1.7); C-REACTIVE PROTEIN 2.2 mg/L (0-3.3); CALCIUM 9.4 mg/dL (8.5-10.1); CREATININE 0.9 mg/dL (0.6-1.0); GFR 76.8; POTASSIUM 4.1 mmol/L (3.5-5.1); TOTAL BILIRUBIN 0.4 mg/dL (0.2-1.0)
[2018-11-20 15:18] LABS: C3 COMPLEMENT 154 mg/dL (82-167); C4 COMPLEMENT 25 mg/dL (14-44)
[2018-11-22 14:26] LABS: ANTI-DS DNA 2 IU/mL (0-9)
== END | disposition home or self-care (01) ==
LOC: SPEC 07:42
PROVIDERS: ATTEND Internal Medicine Rheumatology
DX: M32.9 Systemic lupus erythematosus, unspecified (principal)
CPT/HCPCS: 36415; 80053; 85025; 85651; 86140; 86160; 87801

== ENCOUNTER → 2019-01-13 | Outpatient (CLI) | payer OTHER ==
[~2019-01-13] MED LIST changes: +AMIT25TA PO; +ASPI-630 PO; +FAMO40TA4 PO; +HYDR200T71 PO; +IBUP-1060 PO; +LISI1TAB5 PO; +PRED20TA PO
--- NOTE | 2019-01-13 12:36 | RAD ---
Examination: MRI of the left knee without contrast HISTORY: History of chronic left knee pain COMPARISON: None available TECHNIQUE: Multiplanar, multisequence MR imaging of the left knee were performed without contrast. FINDINGS: The anterior cruciate ligament, posterior cruciate ligament appear intact. There is attenuated appearance of the body of the medial meniscus with blunting of the body of the medial meniscus likely tear probably degenerative tear of the body of the medial meniscus with mild extrusion of the medial meniscus medially. The lateral meniscus appears intact. The medial collateral ligament is intact. Lateral collateral ligamentous complex including the fibular collateral ligament, biceps femoris tendon, popliteus tendon appear intact. Small knee joint effusion is identified. The extensor mechanism is intact. Moderate joint space loss identified in the medial, lateral, patellofemoral compartments. Subchondral cystic changes identified in the weightbearing portion of the medial compartment with complete cartilage loss identified in the weightbearing portion of the posterior flexion zones of the medial compartment. There is deep fissuring of cartilage in the patellofemoral compartment and the lateral compartment. There is mild increased T2 signal identified in the weightbearing portion of the medial femoral condyle and medial tibial plateau likely trabecular edema. Moderate-sized osteophyte formation identified in the medial, lateral, patellofemoral compartments. There is a 1.4 cm increased T2 signal identified in the soft tissue overlying the lateral gastrocnemius muscle could be focal ectasia of a blood vessel or a a nerve sheath tumor or lymph node. IMPRESSION: 1. Attenuated appearance of the body of the medial meniscus with mild medial extrusion of the medial meniscus could be due to degeneration or degenerative tear of the body of the medial meniscus. 2. Grade III chondromalacia medial compartment, grade II chondromalacia lateral, patellofemoral compartments. Tricompartmental degenerative changes most in the medial compartment with subchondral cystic changes and trabecular edema identified in the medial femoral condyle and medial tibial plateau. 3. A 1.4 cm round increased T2 signal identified in the soft tissue overlying the lateral gastrocnemius muscle could be focal ectasia of a blood vessel or a a nerve sheath tumor or lymph node. Follow-up ultrasound examination and follow-up MRI without and with IV contrast can be considered for further evaluation. . Electronically signed by: Omid Lozada MD (01/13/2019 12:33 PM) [facility]
== END | disposition home or self-care (01) ==
LOC: MRI 10:38
PROVIDERS: ATTEND Orthopaedic Surgery
DX: M17.12 Unilateral primary osteoarthritis, left knee (principal); M22.42 Chondromalacia patellae, left knee; M25.762 Osteophyte, left knee; M25.462 Effusion, left knee; M85.662 Other cyst of bone, left lower leg; R60.0 Localized edema
CPT/HCPCS: 73721

== ENCOUNTER → 2019-01-31 | Outpatient (CLI) | payer OTHER ==
[2019-01-31 08:57] LABS: BASO % 1 % (0-3); EOS # 0.1 x10^3/uL (0.0-0.7); EOS % 2 % (0-3); HEMATOCRIT 39.4 % (36.0-47.0); HEMOGLOBIN 12.9 g/dL (12.0-15.5); LYMPH # 1.3 x10^3/uL (1.0-4.8); LYMPH % 24 % (24-48); MEAN CORPUSCULAR HEMOGLOBIN 27 pg (25-35); MEAN CORPUSCULAR HGB CONC 33 g/dL (31-37); MEAN CORPUSCULAR VOLUME 84 fL (79-100); MONO # 0.3 x10^3/uL (0.0-1.1); MONO % 6 % (0-9); NEUT # 3.6 x10^3uL (1.8-7.7); NEUT % 67 % (31-73); PLATELET COUNT 294 x10^3/uL (140-400); RED BLOOD COUNT 4.71 x10^6/uL (3.50-5.40); RED CELL DISTRIBUTION WIDTH 14.2 % (11.5-14.5); WHITE BLOOD COUNT 5.3 x10^3/uL (4.0-11.0)
[2019-01-31 09:16] LABS: ALBUMIN/GLOBULIN RATIO 0.8 (1.0-1.7); C-REACTIVE PROTEIN 3.4 mg/L (0-3.3); CALCIUM 9.3 mg/dL (8.5-10.1); CREATININE 0.9 mg/dL (0.6-1.0); GFR 76.8; TOTAL BILIRUBIN 0.4 mg/dL (0.2-1.0); TOTAL PROTEIN 9.1 g/dL (6.4-8.2)
== END | disposition home or self-care (01) ==
LOC: SPEC 08:43
PROVIDERS: ATTEND Internal Medicine Rheumatology
DX: M32.9 Systemic lupus erythematosus, unspecified (principal)
CPT/HCPCS: 36415; 80053; 85025; 85651; 86140; 87801

== ENCOUNTER → 2019-03-03 | Outpatient (CLI) | payer OTHER ==
[2019-03-03 09:45] LABS: BILIRUBIN,URINE NEGATIVE (NEG); CLARITY,URINE CLEAR; COLOR,URINE YELLOW; NITRITE,URINE NEGATIVE (NEG); PH,URINE 5.5; PROTEIN,URINE NEGATIVE (NEG-TRACE); UROBILINOGEN,URINE 0.2 mg/dL (0.2 mg/dL)
[2019-03-03 09:45] LABS: BASO % 1 % (0-3); EOS # 0.1 x10^3/uL (0.0-0.7); EOS % 2 % (0-3); HEMATOCRIT 38.6 % (36.0-47.0); HEMOGLOBIN 12.9 g/dL (12.0-15.5); LYMPH % 20 % (24-48); MEAN CORPUSCULAR HEMOGLOBIN 28 pg (25-35); MEAN CORPUSCULAR HGB CONC 33 g/dL (31-37); MEAN CORPUSCULAR VOLUME 83 fL (79-100); MONO # 0.2 x10^3/uL (0.0-1.1); MONO % 4 % (0-9); NEUT # 3.5 x10^3uL (1.8-7.7); NEUT % 73 % (31-73); PLATELET COUNT 286 x10^3/uL (140-400); RED BLOOD COUNT 4.63 x10^6/uL (3.50-5.40); RED CELL DISTRIBUTION WIDTH 14.5 % (11.5-14.5); WHITE BLOOD COUNT 4.8 x10^3/uL (4.0-11.0)
[2019-03-03 09:48] LABS: ALBUMIN 3.9 g/dL (3.4-5.0); CALCIUM 9.3 mg/dL (8.5-10.1); CREATININE 0.8 mg/dL (0.6-1.0); GFR 87.9; POTASSIUM 3.8 mmol/L (3.5-5.1)
[2019-03-03 10:04] LABS: SQUAMOUS EPITHELIAL CELL,UR OCC /LPF
[2019-03-03 10:05] LABS: BACTERIA,URINE 0 /HPF (0-FEW); RBC,URINE 0 /HPF (0-2); WBC,URINE 0 /HPF (0-4)
--- NOTE | 2019-03-03 13:00 | EKG ---
[facility] [address] [place] [address] Test Date: 2019-03-03 Test Time: 12:51:10 Pat Name: MART TAVERAS Department: Room: Gender: F Ux Manager: : [id number] Requested By: JOSELIN HENSLEY Order Number: [id number] Reading MD: Evan Randall MD Measurements Intervals [place] Rate: 74 P: 44 SD: 156 QRS: 38 QRSD: 78 T: 36 QT: 376 QTc: 418 Interpretive Statements SINUS RHYTHM Electronically Signed On 03-10-2019 9:46:37 CDT by Evan Randall MD
--- NOTE | 2019-03-03 16:24 | RAD ---
AP and Lateral Views of the Chest 03/03/2019 1:26 PM Indication: PRE OP LEFT KNEE REPLACEMENT 03/18/19 Comparison: CT chest February 06, 2017 Findings: Diffuse reticulonodular opacities appear to be present throughout the bilateral lungs. No pneumothorax, pleural effusion, or focal consolidative infiltrate is seen. Heart size is normal. No acute osseous changes are seen. IMPRESSION: Diffuse reticulonodular opacities. The appearance is somewhat nonspecific. Considerations include but are not limited to pulmonary edema, viral and atypical infectious processes, or less likely developing interstitial lung disease recommended radiographic versus CT follow-up as clinically indicated. Electronically signed by: Cyril Canales MD (03/03/2019 4:21 PM) [facility]
== END | disposition home or self-care (01) ==
LOC: SURGPAT 13:08
PROVIDERS: ATTEND Orthopaedic Surgery
DX: Z01.818 Encounter for other preprocedural examination (principal); M17.12 Unilateral primary osteoarthritis, left knee; Z88.0 Allergy status to penicillin
CPT/HCPCS: 36415; 71046; 80048; 81001; 82040; 82306; 85025; 85610; 85651; 85730; 87641; 93005

== ENCOUNTER → 2019-03-10 | Outpatient (CLI) | payer OTHER ==
[~2019-03-10] MED LIST changes: +CONTRAST GIVEN. MC PRN; +IOHEXOL 300 MG/ML 100ML VIAL. IV ONE
--- NOTE | 2019-03-10 13:24 | RAD ---
CT of the chest with IV contrast, compared to PA and lateral chest x-ray dated 4:15 for abnormal chest x-ray, preop for total knee replacement. TECHNIQUE AND FINDINGS: Contiguous helical 5 mm axial images are obtained from the thoracic inlet to the base of diaphragm following administration of IV contrast. Sagittal and coronal reformations are evaluated. There are innumerable small diffuse interstitial pulmonary nodules and subpleural sparing, and extensive tree-in-bud changes of the bronchi. Distribution favors the upper lobes. There are several micronodules, the largest which is in the right middle lobe measuring 7 mm seen on axial image #38. Other macronodular components are present in proximity to the major fissures. No pulmonary effusions. No cysts or emphysema. No central peribronchial thickening. There is suspicious mediastinal and bilateral hilar adenopathy, with largest node seen in the right brittany measuring 2.7 x 2.3 cm. Heart size within normal limits. No significant axillary adenopathy. Visualized upper abdominal organs are grossly unremarkable save for simple appearing right renal cyst. No suspicious osseous abnormalities. IMPRESSION: 1. Innumerable interstitial pulmonary micronodules with tree in bud changes distributed diffusely disfavoring upper lobes. A few macro nodules are present as well, and there is associated pathologic mediastinal and hilar adenopathy. These findings are most concerning for acute atypical infectious etiology such as varicella pneumonia, mycoplasma, or opportunistic infection. Acute hypersensitivity or atypical pneumoconioses could also have a similar presentation. Electronically signed by: Calr Esteban MD (03/10/2019 1:21 PM) [facility]
== END | disposition home or self-care (01) ==
LOC: CT 07:33
PROVIDERS: ATTEND Family Medicine
DX: Z01.818 Encounter for other preprocedural examination (principal); R91.8 Other nonspecific abnormal finding of lung field; N28.1 Cyst of kidney, acquired
CPT/HCPCS: 71260; Q9967

== ENCOUNTER → 2019-03-17 | Day surgery (SDC) | payer OTHER ==
[~2019-03-17] MED LIST changes: +ALBUTEROL SULFATE 2.5 MG/3 ML NEBU. NEB PRN; -CONTRAST GIVEN. MC PRN; +EPINEPHrine 1 MG/ML VIAL INJ PRN; +EPINEPHrine 1 MG/ML VIAL ONE; +HYDROmorphone 2 MG/ML VIAL IV PRN; -IOHEXOL 300 MG/ML 100ML VIAL. IV ONE; +IV RINGERS,LACTATED 1000ML 1,000 ML IV SCH; +LIDOCAINE 1% Multi-Dose 20 ML VIAL. INJ PRN; +LIDOCAINE 1% Multi-Dose 20 ML VIAL. ONE; +LIDOCAINE 1% PF 2 ML VIAL. ID PRN; +LIDOCAINE 2% VISCOUS 100 ML BOTTLE. MM PRN; +LIDOCAINE 2% VISCOUS 100 ML BOTTLE. ONE; +LIDOCAINE 4% TOPICAL 50 ML SOLUTION. MM PRN; +LIDOCAINE 4% TOPICAL 50 ML SOLUTION. ONE; +MORPHINE SULFATE 2 MG/ML VIAL. IV PRN; +ONDANSETRON PF 4 MG/2 ML VIAL. IV PRN; +PROCHLORPERAZINE 10 MG/2 ML VIAL. IV PRN; +PROPOFOL 20 ML IV ONE; +fentaNYL PF VIAL 100 MCG/2 ML VIAL IV PRN
[2019-03-17 14:43] VITALS: BP 143/66
--- NOTE | 2019-03-17 19:06 | OP ---
DATE OF SURGERY: 03/17/2019 PROCEDURE: Bronchoscopy, left and right upper lobe bronchoalveolar lavage. INDICATIONS: The patient presented with abnormal CT chest, immunocompromised undergoing a diagnostic bronchoscopy, rule out atypical infection versus the possibility of chronic hypersensitivity pneumonitis. Risks, benefits, and alternatives reviewed with the patient and she consented. SEDATION: Please see anesthesia's notes. DESCRIPTION OF PROCEDURE: A timeout was performed prior to sedation. O2 saturation and vital signs were maintained within normal limits throughout the procedure. The bronchoscope was passed through the right naris. The vocal cords were then anesthetized with a total of 5 mL of 4% lidocaine. The bronchoscope was then passed through the vocal cords into the proximal trachea, which was normal. The distal trachea was likewise normal. The right and left segments and subsegments were all visualized. There were no endobronchial lesions. The scope was wedged into the right upper lobe segment and lavage was performed, the return was clear. The scope was then wedged into the left upper lobe segment and the lavage was likewise performed, the return was clear. FINDINGS: 1. Normal vocal cords. 2. No purulent secretions. 3. No endobronchial lesion. PLAN: The patient is to follow up with Dr. Garza in the office, we will await the final BAL results. The patient tolerated procedure well with no immediate complications. KENNY SEGURA MD DR: ANTOLIN/aaron JOB#: [id number] / [id number] NOMI Peacock
--- NOTE | 2019-03-19 15:06 | PATHOLOGY ---
Note [facility] Accession Number: [id number] TESTS RESULT FLAG UNITS REF RANGE LAB Clinician Provided Cytology Information No. of containers..01 Other (Miscellaneous) Source: BAL RIGHT LUNG DIAGNOSIS: BAL RIGHT LUNG NEGATIVE FOR MALIGNANT CELLS. FOCALLY REACTIVE BRONCHIAL EPITHELIAL CELLS, PULMONARY MACROPHAGES, AND FOCAL MUCIN AND NEUTROPHILS PRESENT. Signed out by: Low Griffin MD, Pathologist NPI- [id number] Performed by: Sydney Peterson, Breaker Operator ([facility]) Gross description: 01 3ML, LIGHT PINK, CLOUDY /LCS FLAG LEGEND: L-Low Normal,H-High Normal,LL-Alert Low,HH-Alert High <-Panic Low,>-Panic High,A-Abnormal,AA-Critical Abnormal Performed at: [address] [place] [address] Yousif Guevara MD, 02 [facility] [address] [place] [address] Low Griffin MD, Specimen Comment: A courtesy copy of this report has been sent to Specimen Comment: [phone], . Specimen Comment: Report sent to / DR DAVIS Specimen Comment: A duplicate report has been generated due to demographic updates. Performed at: [address] [place] [address] [facility] [address], [place], [place] [id number] MD Yousif Guevara MD Phone: [phone]
--- NOTE | 2019-03-19 15:06 | PATHOLOGY ---
Note [facility] Accession Number: [id number] TESTS RESULT FLAG UNITS REF RANGE LAB Clinician Provided Cytology Information No. of containers..01 Other (Miscellaneous) Source: BAL LEFT LUNG DIAGNOSIS: BAL LEFT LUNG NEGATIVE FOR MALIGNANT CELLS. FOCALLY REACTIVE BRONCHIAL EPITHELIAL CELLS, PULMONARY MACROPHAGES, AND FOCAL MUCIN AND FEW INFLAMMATORY CELLS PRESENT. Signed out by: Low Griffin MD, Pathologist NPI- [id number] Performed by: Sydney Peterson, Grade Teacher ([facility]) Gross description: 01 5ML, LIGHT PINK, CLOUDY /LCS FLAG LEGEND: L-Low Normal,H-High Normal,LL-Alert Low,HH-Alert High <-Panic Low,>-Panic High,A-Abnormal,AA-Critical Abnormal Performed at: [address] [place] [address] Yousif Guevara MD, 02 [facility] [address] [place] [address] Low Griffin MD, Specimen Comment: A courtesy copy of this report has been sent to Specimen Comment: [phone], . Specimen Comment: Report sent to DR SEGURA / DR DAVIS Specimen Comment: A duplicate report has been generated due to demographic updates. Performed at: [address] [place], [place] [id number] [facility] [address], [place], [place] [id number] MD Yousif Guevara MD Phone: [phone]
== END | disposition home or self-care (01) ==
LOC: SURG 12:42
PROVIDERS: ATTEND Internal Medicine Pulmonary Disease
DX: R91.8 Other nonspecific abnormal finding of lung field (principal); Z88.0 Allergy status to penicillin; Z91.040 Latex allergy status; Z91.041 Radiographic dye allergy status; Z90.710 Acquired absence of both cervix and uterus; Z98.890 Other specified postprocedural states; Z79.82 Long term (current) use of aspirin; Z79.899 Other long term (current) drug therapy; Z87.891 Personal history of nicotine dependence
CPT/HCPCS: 31624; 86713; 87070; 87102; 87116; 87205; 88112; 94640; J2704; J7613; 31622; J0171

== ENCOUNTER → 2019-04-01 | Outpatient (CLI) | payer OTHER ==
[2019-03-17 14:43] VITALS: BP 143/66
[~2019-04-01] MED LIST changes: -ALBUTEROL SULFATE 2.5 MG/3 ML NEBU. NEB PRN; -EPINEPHrine 1 MG/ML VIAL INJ PRN; -EPINEPHrine 1 MG/ML VIAL ONE; -HYDROmorphone 2 MG/ML VIAL IV PRN; -IV RINGERS,LACTATED 1000ML 1,000 ML IV SCH; -LIDOCAINE 1% Multi-Dose 20 ML VIAL. INJ PRN; -LIDOCAINE 1% Multi-Dose 20 ML VIAL. ONE; -LIDOCAINE 1% PF 2 ML VIAL. ID PRN; -LIDOCAINE 2% VISCOUS 100 ML BOTTLE. MM PRN; -LIDOCAINE 2% VISCOUS 100 ML BOTTLE. ONE; -LIDOCAINE 4% TOPICAL 50 ML SOLUTION. MM PRN; -LIDOCAINE 4% TOPICAL 50 ML SOLUTION. ONE; -MORPHINE SULFATE 2 MG/ML VIAL. IV PRN; -ONDANSETRON PF 4 MG/2 ML VIAL. IV PRN; -PROCHLORPERAZINE 10 MG/2 ML VIAL. IV PRN; -PROPOFOL 20 ML IV ONE; -fentaNYL PF VIAL 100 MCG/2 ML VIAL IV PRN
[2019-04-03 15:15] LABS: C ANCA <1:20 titer (Neg:<1:20); P ANCA <1:20 titer (Neg:<1:20)
[2019-04-04 10:20] LABS: ANTI-DS DNA 1 IU/mL (0-9)
== END | disposition home or self-care (01) ==
LOC: SPEC 13:46
PROVIDERS: ATTEND Internal Medicine Critical Care Medicine
DX: J18.9 Pneumonia, unspecified organism (principal); I10 Essential (primary) hypertension
CPT/HCPCS: 36415; 85651; 86021; 87801

== ENCOUNTER 2019-04-10 07:10 | Outpatient (CLI) | payer OTHER ==
[~2019-04-10] VITALS: Ht 167.6 cm; Wt 70.3 kg
[2019-04-10] VITALS (17 sets, daily range): BP systolic 118–156; BP diastolic 56–80
[~2019-04-10 07:10] MED LIST changes: -AMIT25TA PO; -HYDR200T71 PO; -PRED20TA PO
[2019-04-10] MEDS ORDERED: PRED20TA PO (07:32)
[2019-04-10] MEDS ORDERED: HYDR200T71 PO (07:32)
[2019-04-10] MEDS ORDERED: AMIT25TA PO (07:32)
[2019-04-10 07:38] LABS: BASO % 0 % (0-3); EOS # 0.1 x10^3/uL (0.0-0.7); EOS % 1 % (0-3); HEMATOCRIT 37.7 % (36.0-47.0); HEMOGLOBIN 12.5 g/dL (12.0-15.5); LYMPH # 2.3 x10^3/uL (1.0-4.8); LYMPH % 32 % (24-48); MEAN CORPUSCULAR HEMOGLOBIN 28 pg (25-35); MEAN CORPUSCULAR HGB CONC 33 g/dL (31-37); MEAN CORPUSCULAR VOLUME 83 fL (79-100); MONO # 0.4 x10^3/uL (0.0-1.1); MONO % 5 % (0-9); NEUT # 4.6 x10^3uL (1.8-7.7); NEUT % 62 % (31-73); PLATELET COUNT 314 x10^3/uL (140-400); RED BLOOD COUNT 4.54 x10^6/uL (3.50-5.40); RED CELL DISTRIBUTION WIDTH 15.2 % (11.5-14.5); WHITE BLOOD COUNT 7.4 x10^3/uL (4.0-11.0)
[2019-04-10] MEDS ORDERED: MIDAZOLAM HCL/PF 2 MG/2 ML VIAL. ONE (07:56)
[2019-04-10] MEDS ORDERED: fentaNYL PF VIAL 100 MCG/2 ML VIAL ONE (07:56)
[2019-04-10] MEDS ORDERED: LIDOCAINE WITH 8.4% SOD BICARB 3 ML DISP.SYRIN. ONE (08:08)
[2019-04-10] MEDS ORDERED: fentaNYL PF VIAL 100 MCG/2 ML VIAL IV ONE (08:30)
[2019-04-10] MEDS ORDERED: LIDOCAINE WITH 8.4% SOD BICARB 3 ML DISP.SYRIN. IJ ONE (08:30)
[2019-04-10] MEDS ORDERED: MIDAZOLAM HCL/PF 2 MG/2 ML VIAL. IV ONE (08:30)
--- NOTE | 2019-04-10 11:30 | NUR ---
Discharge Note: MART TAVERAS Discharge instructions and discharge home medications reviewed with Patient and a copy given. All questions have been answered and understanding verbalized. The following instructions and handouts were given: moderate sedation and lung biopsy aftercare Discontinued lines and drains: Peripheral IV intact. Patient discharged to Home or Self Care withSpousevia Wheelchair
--- NOTE | 2019-04-10 12:56 | RAD ---
EXAM: AP View of the chest DATE: 04/10/2019 11:00 AM INDICATION: Right lung nodule COMPARISON: 03/10/2019 FINDINGS: The heart is not enlarged. Mediastinal and hilar contours are normal. Nodularity is seen within both lungs, better assessed by CT. No pleural effusion or pneumothorax. IMPRESSION: 1. No pneumothorax. 2. Bilateral lung nodules are seen, better assessed on prior CT. Electronically signed by: Wali Caro MD (04/10/2019 12:54 PM) [facility]
--- NOTE | 2019-04-10 15:13 | RAD ---
CT-guided biopsy, right middle lobe nodule 04/10/2019 Indication: 7 mm nodule, right middle lobe, increased in size with respect comparison studies. Multiple diffuse pulmonary nodules and increasing mediastinal lymphadenopathy. Differential considerations include sarcoidosis. Discussion: The risks and benefits of the procedure were discussed the patient. Informed consent was obtained. A timeout procedure was performed. The anterior chest was prepped and draped using sterile barrier technique. All elements of maximal sterile barrier technique including the use of a cap, mask, sterile gown, sterile gloves, large sterile sheet, appropriate hand hygiene, and 2% chlorhexidine for cutaneous antisepsis (or acceptable alternative antiseptic per current guidelines) were followed for this procedure. CT imaging demonstrates a right middle lobe nodule, adjacent to the minor fissure, somewhat triangular in configuration. Findings could represent an intrapulmonary lymph node, particularly given diffuse adenopathy in the mediastinum which is increased in the interim as well. A parenchymal nodule is also possible. Under intermittent CT guidance attempts were made to advance a 17-gauge needle into the nodule. Significant motion was noted with breathing. This in conjunction with the nodule's small size, made needle placement challenging. After multiple attempts to get the guiding needle into the nodule, the needle tip position was immediately inferior to the nodule. Biopsy samples were obtained from this position with the trocar needle directed cephalad, an attempt to obtain a sample of the nodule. Following 2 passes the patient began to experience some mild hemoptysis. The procedure was stopped. The needle was removed. Minimal perilesional hemorrhage was seen. No pneumothorax is identified. Patient tolerated this well remaining hemodynamic stable throughout. Patient was transferred to the recovery area in stable condition. The procedures performed under conscious sedation including continuous cardiopulmonary monitoring via dedicated sedation nurse. [id number] sedation time: 30 minutes. Impression: CT-guided biopsy, right middle lobe nodule. PQRS Compliance Statement: One or more of the following individualized dose reduction techniques were utilized for this examination: 1. Automated exposure control 2. Adjustment of the mA and/or kV according to patient size 3. Use of iterative reconstruction technique
--- NOTE | 2019-04-11 15:05 | PATHOLOGY ---
[facility] Accession Number: [id number] . 01 Material submitted: . lung - RIGHT LUNG MASS BIOPSY. Modifiers: right . 01 Clinical history: . Rt lung mass . 02 Diagnosis: Lung tissue, right lung mass needle biopsy: - Noncaseating granulomas. See comment. (JPM:etl software engineer; 04/11/2019) MBR/04/11/2019 . 02 Comment: Sections of the right lung mass needle biopsy reveal lung tissue which focally contains a small tight cluster of noncaseating granulomas. These are partially surrounded by an infiltrate of small lymphocytes. The remaining lung parenchyma appears normal. Properly controlled stains for acid-fast bacilli and fungi are obtained on block A1 and yield the following results: . AFB: Negative for acid-fast bacilli. GMS for fungus: Negative for yeast/fungi. . The histologic and special stain findings are consistent with sarcoidosis in the proper clinical setting. Correlate clinically. . (JPM:etl software engineer; 04/11/2019) . Special stains performed: AFB stain and GMS stain for fungus on A1. . 02 Electronically signed: . Low Griffin MD, Pathologist NPI- [id number] . 01 Gross description: . The specimen is received in formalin, labeled "Yi De Los Santos, Rt lung BX" and consists of a delicate needle core of pink-hart tissue measuring 1.0 cm in length and less than 0.1 cm in diameter which is entirely submitted in A1. (SDY; 04/10/2019) SYU/SYU . 02 Pathologist provided ICD-10: J84.10 . 02 CPT . 315569, 270277, 654000 Specimen Comment: A courtesy copy of this report has been sent to Specimen Comment: [phone], , . Specimen Comment: Report sent to ,DR STEPHENS / DR DAVIS Performed at: [address] [facility], [place] [id number] MD Yousif Guevara MD Phone: [phone] Performed at: 02 [facility] [address] [place], [place] [id number] MD Low Griffin MD Phone: [phone]
== END 2019-04-10 11:45 | disposition home or self-care (01) ==
LOC: INTRAD 07:10
PROVIDERS: ATTEND Internal Medicine Critical Care Medicine
DX: D86.0 Sarcoidosis of lung (principal); J84.10 Pulmonary fibrosis, unspecified; R59.1 Generalized enlarged lymph nodes
CPT/HCPCS: 32405; 36415; 71045; 77012; 85025; 85610; 85730; J2250; J3010; 88305; 88312; 99152; 99153

== ENCOUNTER → 2019-05-07 | Outpatient (CLI) | payer OTHER ==
[2019-04-10 11:05] VITALS: BP 122/58
[~2019-05-07] MED LIST changes: +AMIT25TA PO; +HYDR200T71 PO; +PRED20TA PO
[2019-05-07 15:14] LABS: BASO % 0 % (0-3); EOS % 0 % (0-3); HEMATOCRIT 40.9 % (36.0-47.0); HEMOGLOBIN 13.6 g/dL (12.0-15.5); LYMPH # 1.1 x10^3/uL (1.0-4.8); LYMPH % 10 % (24-48); MEAN CORPUSCULAR HEMOGLOBIN 28 pg (25-35); MEAN CORPUSCULAR HGB CONC 33 g/dL (31-37); MEAN CORPUSCULAR VOLUME 85 fL (79-100); MONO # 0.3 x10^3/uL (0.0-1.1); MONO % 2 % (0-9); NEUT % 88 % (31-73); PLATELET COUNT 325 x10^3/uL (140-400); RED BLOOD COUNT 4.82 x10^6/uL (3.50-5.40); RED CELL DISTRIBUTION WIDTH 16.7 % (11.5-14.5); WHITE BLOOD COUNT 11.4 x10^3/uL (4.0-11.0)
[2019-05-07 15:37] LABS: % BANDS 2 % (0-9); % LYMPHS 10 % (24-48); % MONOS 2 % (0-10); % SEGS 86 % (35-66); PLT ESTIMATE ADEQUATE (ADEQUATE)
[2019-05-07 15:39] LABS: ALBUMIN 3.9 g/dL (3.4-5.0); ALBUMIN/GLOBULIN RATIO 0.9 (1.0-1.7); CALCIUM 9.3 mg/dL (8.5-10.1); CREATININE 1.1 mg/dL (0.6-1.0); GFR 60.9; POTASSIUM 3.8 mmol/L (3.5-5.1); TOTAL BILIRUBIN 0.3 mg/dL (0.2-1.0); TOTAL PROTEIN 8.2 g/dL (6.4-8.2)
== END | disposition home or self-care (01) ==
LOC: SPEC 15:07
PROVIDERS: ATTEND Internal Medicine Rheumatology
DX: M32.9 Systemic lupus erythematosus, unspecified (principal)
CPT/HCPCS: 36415; 80053; 85007; 85025; 85651; 86140

== ENCOUNTER → 2019-06-27 | Outpatient (CLI) | payer OTHER ==
[2019-04-10 11:05] VITALS: BP 122/58
--- NOTE | 2019-06-27 09:30 | RAD ---
PQRS Compliance statement: One or more of the following individualized dose reduction techniques were utilized for this examination: 1. Automated exposure control. 2. Adjustment of the mA and/or kV according to patient size. 3. Use of iterative reconstruction technique. Indication:Sarcoidosis. TECHNIQUE: CT chest without IV contrast with multiplanar reformats. COMPARISON: 03/10/2019 FINDINGS: Heart is normal in size. No pericardial or pleural effusion. Clear neck base. No enlarged axillary or mediastinal adenopathy. Evaluation of hilar lymphadenopathy is limited due to lack of IV contrast. Calcified right hilar lymph nodes are seen likely secondary to old healed granulomatous disease. Central airways are patent. Interval resolution of previously seen numerous bilateral centrilobular nodules. Near-complete resolution of previously seen subpleural nodule in the right minor fissure, currently there is a persistent 6 mm nodularity. Visualized noncontrast sections through the liver, spleen, pancreas, adrenals within normal limits. No suspicious bony lesion. IMPRESSION: 1. Resolution of previous is seen numerous bilateral centrilobular nodules with persistent small but improved nodularity adjacent to the right minor fissure. Follow-up CT chest in 4-6 months recommended. Electronically signed by: Gianluca Meier DO (06/27/2019 9:27 AM) [facility]
== END | disposition home or self-care (01) ==
LOC: CT 09:07
PROVIDERS: ATTEND Internal Medicine Critical Care Medicine
DX: R91.8 Other nonspecific abnormal finding of lung field (principal)
CPT/HCPCS: 71250

== ENCOUNTER → 2019-09-25 | Outpatient (CLI) | payer OTHER ==
[2019-04-10 11:05] VITALS: BP 122/58
[~2019-09-25] MED LIST changes: +LISI1TAB19 PO; +LISI1TAB23 PO; -LISI1TAB3 PO; -LISI1TAB5 PO
--- NOTE | 2019-09-26 10:26 | RAD ---
DATE: September 25, 2019 EXAM: MAMMO JESSICA SCREENING BILATERAL HISTORY: Screening study. COMPARISON: 2016 and 2018 This study was interpreted with the benefit of Computerized Aided Detection (CAD). FINDINGS: Breast Density: HETERO The breast parenchyma is heterogenously dense, which could reduce sensitivity of mammography. Breast parenchyma level C.. There are no dominant suspicious masses, suspicious microcalcifications or evidence of architectural distortion. IMPRESSION: No mammographic indicators for malignancy. BI-RADS CATEGORY: 1 NEGATIVE RECOMMENDED FOLLOW-UP: 12M 12 MONTH FOLLOW-UP PQRS compliance statement: Patient information was entered into a reminder system with a target due date September 26, 2020 for the next mammogram. Mammography is a sensitive method for finding small breast cancers, but it does not detect them all and is not a substitute for careful clinical examination. A negative mammogram does not negate a clinically suspicious finding and should not result in delay in biopsying a clinically suspicious abnormality. "Our facility is accredited by the [employer] Mammography Program." The patient's breast density may affect the ability of mammography to detect breast cancer. There are 4 categories of breast density, A, B, C and D. Breast density A means that most of the breast tissue is replaced with adipose tissue and therefore is not dense. Breast density B means that the breast tissue is mildly dense and scattered. Breast density C means that the breast tissue is heterogeneously dense. Breast density D means that the breast tissue is very dense. Breast densities especially C and D may decrease the sensitivity of mammography to detect breast cancer. Therefore, the patient may benefit from 3-D breast mammography (3D breast tomography) as a part of their screening mammogram. Insurance may or may not pay for this additional imaging. The patient's breast density based on today's mammogram is category C.
== END | disposition home or self-care (01) ==
LOC: MAMMO 09:02
PROVIDERS: ATTEND Family Medicine
DX: Z12.31 Encounter for screening mammogram for malignant neoplasm of breast (principal)
CPT/HCPCS: 77063; 77067

== ENCOUNTER → 2019-11-27 | Outpatient (CLI) | payer OTHER ==
[2019-04-10 11:05] VITALS: BP 122/58
[2019-11-27 10:03] LABS: BASO % 1 % (0-3); EOS % 1 % (0-3); HEMATOCRIT 39.6 % (36.0-47.0); HEMOGLOBIN 12.9 g/dL (12.0-15.5); LYMPH # 0.9 x10^3/uL (1.0-4.8); LYMPH % 13 % (24-48); MEAN CORPUSCULAR HEMOGLOBIN 28 pg (25-35); MEAN CORPUSCULAR HGB CONC 33 g/dL (31-37); MEAN CORPUSCULAR VOLUME 85 fL (79-100); MONO # 0.2 x10^3/uL (0.0-1.1); MONO % 2 % (0-9); NEUT # 6.1 x10^3/uL (1.8-7.7); NEUT % 84 % (31-73); PLATELET COUNT 320 x10^3/uL (140-400); RED BLOOD COUNT 4.64 x10^6/uL (3.50-5.40); RED CELL DISTRIBUTION WIDTH 14.6 % (11.5-14.5); WHITE BLOOD COUNT 7.3 x10^3/uL (4.0-11.0)
[2019-11-27 10:17] LABS: ALBUMIN 3.9 g/dL (3.4-5.0); ALBUMIN/GLOBULIN RATIO 0.9 (1.0-1.7); CALCIUM 9.3 mg/dL (8.5-10.1); GFR 67.8; POTASSIUM 3.6 mmol/L (3.5-5.1); TOTAL BILIRUBIN 0.2 mg/dL (0.2-1.0); TOTAL PROTEIN 8.2 g/dL (6.4-8.2)
== END | disposition home or self-care (01) ==
LOC: SPEC 08:45
PROVIDERS: ATTEND Internal Medicine Rheumatology
DX: D86.9 Sarcoidosis, unspecified (principal); M32.9 Systemic lupus erythematosus, unspecified
CPT/HCPCS: 36415; 80053; 85025; 85651; 86140

== ENCOUNTER → 2020-02-06 | Outpatient (CLI) | payer OTHER ==
[2019-04-10 11:05] VITALS: BP 122/58
--- NOTE | 2020-02-06 12:31 | RAD ---
CT of the chest without contrast 02/06/2020 INDICATION: History of sarcoidosis. COMPARISON STUDY: CT of the chest without contrast June 27, 2019. TECHNIQUE: Multidetector CT imaging of the chest was performed without the administration of IV contrast. FINDINGS: Heart size is normal. No pericardial effusion is identified. Limited noncontrast evaluation of the mediastinum demonstrates no pathologically enlarged noncalcified mediastinal lymph nodes. Calcified right hilar adenopathy is unchanged. There is no pneumothorax, pleural effusion, or acute consolidative infiltrate. No new nodules or masses are identified. Minimal jelena- fissural nodularity involving the minor fissure, and left major fissure is unchanged. Limited visualization of the upper abdomen is unremarkable and unchanged. No acute osseous changes are noted. IMPRESSION: No evidence of acute cardiopulmonary process. CT DOSING PQRS STATEMENT: One or more of the following individualized dose reduction techniques were utilized for this examination: 1. Automated exposure control 2. Adjustment of the mA and/or kV according to patient size 3. Use of iterative reconstruction technique Electronically signed by: Cyril Canales MD (02/06/2020 12:28 PM) [id number]
== END | disposition home or self-care (01) ==
LOC: CT 12:35
PROVIDERS: ATTEND Internal Medicine Critical Care Medicine
DX: R59.0 Localized enlarged lymph nodes (principal); D86.9 Sarcoidosis, unspecified
CPT/HCPCS: 71250

== ENCOUNTER → 2020-05-17 | Outpatient (CLI) | payer OTHER ==
[2019-04-10 11:05] VITALS: BP 122/58
[2020-05-17 08:59] LABS: BASO # 0.1 x10^3/uL (0.0-0.2); BASO % 1 % (0-3); EOS # 0.1 x10^3/uL (0.0-0.7); EOS % 1 % (0-3); HEMOGLOBIN 13.1 g/dL (12.0-15.5); LYMPH # 1.8 x10^3/uL (1.0-4.8); LYMPH % 23 % (24-48); MEAN CORPUSCULAR HEMOGLOBIN 28 pg (25-35); MEAN CORPUSCULAR HGB CONC 33 g/dL (31-37); MEAN CORPUSCULAR VOLUME 85 fL (79-100); MONO # 0.3 x10^3/uL (0.0-1.1); MONO % 3 % (0-9); NEUT # 5.8 x10^3/uL (1.8-7.7); NEUT % 73 % (31-73); PLATELET COUNT 302 x10^3/uL (140-400); RED BLOOD COUNT 4.71 x10^6/uL (3.50-5.40)
[2020-05-17 09:39] LABS: ALBUMIN 4.1 g/dL (3.4-5.0); C-REACTIVE PROTEIN 1.3 mg/L (0-3.3); CALCIUM 9.2 mg/dL (8.5-10.1); GFR 67.8; POTASSIUM 3.5 mmol/L (3.5-5.1); TOTAL BILIRUBIN 0.3 mg/dL (0.2-1.0); TOTAL PROTEIN 8.1 g/dL (6.4-8.2)
== END ==
LOC: SPEC 08:36
PROVIDERS: ATTEND Internal Medicine Rheumatology
DX: D86.9 Sarcoidosis, unspecified (principal); M32.9 Systemic lupus erythematosus, unspecified
CPT/HCPCS: 36415; 80053; 85025; 86140

== ENCOUNTER → 2020-08-09 | Outpatient (CLI) | payer OTHER ==
[2019-04-10 11:05] VITALS: BP 122/58
[~2020-08-09] MED LIST changes: -LISI1TAB19 PO; +LISI1TAB37 PO
[2020-08-09 12:08] LABS: BASO % 1 % (0-3); EOS # 0.1 x10^3/uL (0.0-0.7); EOS % 2 % (0-3); HEMATOCRIT 39.6 % (36.0-47.0); HEMOGLOBIN 12.9 g/dL (12.0-15.5); LYMPH # 1.6 x10^3/uL (1.0-4.8); LYMPH % 34 % (24-48); MEAN CORPUSCULAR HEMOGLOBIN 28 pg (25-35); MEAN CORPUSCULAR HGB CONC 33 g/dL (31-37); MEAN CORPUSCULAR VOLUME 85 fL (79-100); MONO # 0.2 x10^3/uL (0.0-1.1); MONO % 5 % (0-9); NEUT # 2.8 x10^3/uL (1.8-7.7); NEUT % 59 % (31-73); PLATELET COUNT 267 x10^3/uL (140-400); RED BLOOD COUNT 4.63 x10^6/uL (3.50-5.40); RED CELL DISTRIBUTION WIDTH 14.7 % (11.5-14.5); WHITE BLOOD COUNT 4.8 x10^3/uL (4.0-11.0)
[2020-08-09 12:33] LABS: BILIRUBIN,URINE NEGATIVE (NEG); CLARITY,URINE CLEAR; COLOR,URINE YELLOW; NITRITE,URINE NEGATIVE (NEG); PROTEIN,URINE NEGATIVE (NEG-TRACE); UROBILINOGEN,URINE 0.2 mg/dL (0.2 mg/dL)
[2020-08-09 12:34] LABS: ALBUMIN 4.1 g/dL (3.4-5.0); C-REACTIVE PROTEIN 1.9 mg/L (0-3.3); CALCIUM 9.5 mg/dL (8.5-10.1); CREATININE 0.8 mg/dL (0.6-1.0); GFR 87.7; MAGNESIUM 2.4 mg/dL (1.8-2.4); POTASSIUM 4.1 mmol/L (3.5-5.1); TOTAL BILIRUBIN 0.5 mg/dL (0.2-1.0); TOTAL PROTEIN 8.4 g/dL (6.4-8.2)
[2020-08-09 12:35] LABS: CHOLESTEROL/HDL RATIO 2.9
[2020-08-09 13:20] LABS: SQUAMOUS EPITHELIAL CELL,UR FEW /LPF
[2020-08-09 13:21] LABS: BACTERIA,URINE 0 /HPF (0-FEW); RBC,URINE 0 /HPF (0-2)
[2020-08-09 20:08] LABS: RHEUMATOID FACTOR <10.0 IU/mL (0.0-13.9)
[2020-08-10 00:08] LABS: HEMOGLOBIN A1C 5.9 % (4.8-5.6)
[2020-08-11 15:14] LABS: ANA INTERP Negative (.)
== END | disposition home or self-care (01) ==
LOC: SPEC 10:57
PROVIDERS: ATTEND Family Medicine
DX: Z00.00 Encounter for general adult medical examination without abnormal findings (principal); M32.9 Systemic lupus erythematosus, unspecified; I11.9 Hypertensive heart disease without heart failure
CPT/HCPCS: 36415; 80053; 80061; 81001; 82306; 83036; 83735; 84443; 85025; 86038; 86140; 86431; 87086

== ENCOUNTER → 2021-01-04 | Outpatient (CLI) | payer OTHER ==
[2019-04-10 11:05] VITALS: BP 122/58
[2021-01-04 09:59] LABS: ALBUMIN 3.9 g/dL (3.4-5.0); ALBUMIN/GLOBULIN RATIO 0.9 (1.0-1.7); BASO % 1 % (0-3); CALCIUM 9.4 mg/dL (8.5-10.1); CREATININE 0.9 mg/dL (0.6-1.0); EOS # 0.1 x10^3/uL (0.0-0.7); EOS % 2 % (0-3); GFR 76.3; HEMATOCRIT 39.5 % (36.0-47.0); HEMOGLOBIN 13.2 g/dL (12.0-15.5); LYMPH # 1.5 x10^3/uL (1.0-4.8); LYMPH % 27 % (24-48); MEAN CORPUSCULAR HEMOGLOBIN 28 pg (25-35); MEAN CORPUSCULAR HGB CONC 34 g/dL (31-37); MEAN CORPUSCULAR VOLUME 85 fL (79-100); MONO # 0.2 x10^3/uL (0.0-1.1); MONO % 4 % (0-9); NEUT # 3.7 x10^3/uL (1.8-7.7); NEUT % 67 % (31-73); PLATELET COUNT 306 x10^3/uL (140-400); POTASSIUM 4.1 mmol/L (3.5-5.1); RED BLOOD COUNT 4.66 x10^6/uL (3.50-5.40); RED CELL DISTRIBUTION WIDTH 14.4 % (11.5-14.5); TOTAL BILIRUBIN 0.3 mg/dL (0.2-1.0); TOTAL PROTEIN 8.2 g/dL (6.4-8.2); WHITE BLOOD COUNT 5.6 x10^3/uL (4.0-11.0)
[2021-01-04 10:05] LABS: CHOLESTEROL/HDL RATIO 2.7
[2021-01-04 17:40] LABS: BILIRUBIN,URINE NEGATIVE (NEG); CLARITY,URINE CLEAR; COLOR,URINE YELLOW; NITRITE,URINE NEGATIVE (NEG); PH,URINE 6.5 (<5.0-8.0); PROTEIN,URINE NEGATIVE (NEG-TRACE); UROBILINOGEN,URINE 0.2 mg/dL (0.2 mg/dL)
[2021-01-04 17:49] LABS: BACTERIA,URINE 0 /HPF (0-FEW); RBC,URINE OCC /HPF (0-2)
[2021-01-07 10:58] LABS: ANA INTERP Negative (.); RHEUMATOID FACTOR <10.0 IU/mL (0.0-13.9)
== END ==
LOC: SPEC 09:18
PROVIDERS: ATTEND Family Medicine
DX: I10 Essential (primary) hypertension (principal); E55.9 Vitamin D deficiency, unspecified; D86.9 Sarcoidosis, unspecified; M32.9 Systemic lupus erythematosus, unspecified
CPT/HCPCS: 36415; 80053; 80061; 81001; 82306; 83036; 84443; 85025; 86038; 86140; 86431; 87086

== ENCOUNTER 2021-02-16 22:54 | Emergency (ER) | payer OTHER ==
[~2021-02-16] VITALS: Ht 167.6 cm; Wt 73.2 kg
--- NOTE | 2021-02-16 23:51 | PHYS DOC ---
Past Medical History Past Medical History: Diverticulitis, Hypertension, Other Additional Past Medical Histor: LUPUS Past Surgical History: Hip Replacement, Hysterectomy, Other Additional Past Surgical Histo: RIGHT HIP , D&C, HERNIA REPAIR Smoking Status: Former Smoker Alcohol Use: Occasionally Drug Use: None General Adult EDM: Chief Complaint: DIZZY/LIGHT HEADED HPI: HPI: Patient is a 65-year-old female presenting for dizziness. Onset was this morning right after waking up. Reports sleeping on her left side and rolling over onto her right side with sudden onset dizziness. [place] as if the room was spinning. Nothing known makes better, rolling over and rotating head makes worse. She denies being in any pain. Timing of symptoms has been ongoing throughout the day. She has never experienced anything like this before. There has been no fever, sick contacts, vision changes, chest pain, shortness of breath, abdominal pain. Admits to being nauseous and has had waves of dry heaving without actual emesis. She has recent CT head imaging performed approximately 2 years prior that was grossly nonconcerning. No falls Review of Systems: Review of Systems: Fourteen body systems of review of systems have been reviewed. See HPI for pertinent positives and negative responses, other castro all other systems are negative, non-pertinent or non-contributory Heart Score: C/O Chest Pain: No HEART Score for Chest Pain: HEART Score for Chest Pain Response (Comments) Value History Slighlty/Non-Suspicious 0 ECG Normal 0 Age >45 - < 65 1 Risk Factors 1 or 2 Risk Factors 1 Troponin < Normal Limit 0 Total 2 Risk Factors: Risk Factors: DM, Current or recent (<one month) smoker, HTN, HLP, family history of CAD, obesity. Risk Scores: Score 0 - 3: 2.5% MACE over next 6 weeks - Discharge Home Score 4 - 6: 20.3% MACE over next 6 weeks - Admit for Clinical Observation Score 7 - 10: 72.7% MACE over next 6 weeks - Early Invasive Strategies Allergies: Allergies: Allergies Coded Allergies Type Severity Reaction Last Updated Verified latex Allergy Severe SORES AND BLEEDING 03/17/19 Yes Iodinated Contrast Media Allergy Intermediate HIVES, RASH 03/17/19 Yes Penicillins Allergy Intermediate 03/17/19 Yes I S O L A T I O N *CONTACT* Allergy Unknown 03/17/19 Yes Physical Exam: PE: Constitutional: Well developed, well nourished, no acute distress, non-toxic appearance. [] HENT: Normocephalic, atraumatic, bilateral external ears normal, oropharynx moist, no oral exudates, nose normal. [] Eyes: PERRLA, EOMI, conjunctiva normal, no discharge. [] Neck: Normal range of motion, no tenderness, supple, no stridor. [] Cardiovascular:Heart rate regular rhythm, no murmur [] Lungs & Thorax: Bilateral breath sounds clear to auscultation [] Abdomen: Bowel sounds normal, soft, no tenderness, no masses, no pulsatile masses. [] Skin: Warm, dry, no erythema, no rash. [] Back: No tenderness, no CVA tenderness. [] Extremities: No tenderness, no cyanosis, no clubbing, ROM intact, no edema. [] Neurologic: Alert and oriented X 3, normal motor function, normal sensory function, no focal deficits noted. [] Psychologic: Affect normal, judgement normal, mood normal. [] Current Patient Data: Vital Signs: Vital Signs Date Time Temp Pulse Resp B/P (MAP) Pulse Ox O2 Delivery O2 Flow Rate FiO2 02/16/21 23:15 98.3 72 18 164/70 (101) 98 Room Air 98.3 Vital Signs Date Time Temp Pulse Resp B/P (MAP) Pulse Ox O2 Delivery O2 Flow Rate FiO2 02/17/21 01:22 68 18 161/72 (101) 99 Room Air 02/16/21 23:15 98.3 98.3 EKG: EKG: EKG ordered and interpreted by myself at 2349 hrs. as sinus rhythm at 67 bpm, unremarkable intervals, no axis deviation, no acute ischemic findings, no STEMI Radiology/Procedures: Radiology/Procedures: [] Course & Med Decision Making: Course & Med Decision Making Discussed most likely diagnosis of vertigo with patient with classic symptoms. Symptoms improved drastically with p.o. meclizine Vitals stable, ER work-up grossly unremarkable. Discussed utility of CT head i maging but given the fact that there has been no trauma and has had recent CT imaging within the last 2 years, joint decision was made to defer this Patient has good access to care in outpatient setting with primary care physician, has good access for follow-up. Continued supportive care and p.o. meclizine as needed advised with outpatient follow-up for Bruce maneuver versus potential ENT consultation recommended Strict return precautions discussed with good understanding by patient and significant other at bedside, all questions and concerns addressed prior to ER departure in improved condition Terrie Disclaimer: Terrie Disclaimer: This electronic medical record was generated, in whole or in part, using a voice recognition dictation system. Departure Departure Impression: Primary Impression: Vertigo Disposition: 01 DC HOME SELF CARE/HOMELESS Condition: IMPROVED Referrals: NOMI DAVIS (PCP) Patient Instructions: Benign Positional Vertigo Additional Instructions: You were seen for dizziness. Your laboratory analysis here was normal as was your chest x-ray and EKGs. We discussed utility of CT head imaging but joint decision was made to defer this as it was recently performed and grossly unremarkable. Your presenting symptoms are classic for vertigo, which should improve with time. Take the prescriptions provided as directed to help with symptoms. Return to the ED immediately if you develop worsening symptoms, chest pain, shortness of breath, numbness, tingling, weakness, vision change, or any other new or concerning symptoms. You should follow up with your primary care doctor in a few days to week for reevaluation. Scripts Meclizine Hcl (MECLIZINE HCL) 25 Mg Tablet 25 MG PO PRN TID PRN for DIZZINESS, #30 dizziness Prov: JANIA JESUS DO 02/17/21 JANIA JESUS DO Feb 16, 2021 23:51
[2021-02-17] MEDS ORDERED: MECLIZINE HCL 12.5 MG TABLET. PO ONE (00:30)
[2021-02-17 00:40] LABS: BASO % 1 % (0-3); EOS # 0.1 x10^3/uL (0.0-0.7); EOS % 3 % (0-3); HEMATOCRIT 36.6 % (36.0-47.0); HEMOGLOBIN 12.1 g/dL (12.0-15.5); LYMPH # 1.4 x10^3/uL (1.0-4.8); LYMPH % 26 % (24-48); MEAN CORPUSCULAR HEMOGLOBIN 28 pg (25-35); MEAN CORPUSCULAR HGB CONC 33 g/dL (31-37); MEAN CORPUSCULAR VOLUME 85 fL (79-100); MONO # 0.3 x10^3/uL (0.0-1.1); MONO % 6 % (0-9); NEUT # 3.4 x10^3/uL (1.8-7.7); NEUT % 65 % (31-73); PLATELET COUNT 241 x10^3/uL (140-400); RED CELL DISTRIBUTION WIDTH 14.6 % (11.5-14.5); WHITE BLOOD COUNT 5.3 x10^3/uL (4.0-11.0)
[2021-02-17] MEDS ORDERED: IV NORMAL SALINE 500ML BAG 500 ML IV ONE (00:45)
[2021-02-17 00:50] LABS: CALCIUM 8.6 mg/dL (8.5-10.1); CREATININE 0.8 mg/dL (0.6-1.0); GFR 87.4
[2021-02-17 00:56] LABS: ALBUMIN 3.4 g/dL (3.4-5.0); ALBUMIN/GLOBULIN RATIO 0.9 (1.0-1.7); TOTAL BILIRUBIN 0.2 mg/dL (0.2-1.0); TOTAL PROTEIN 7.3 g/dL (6.4-8.2)
[2021-02-17 01:22] VITALS: BP 161/72
[2021-02-17] MEDS ORDERED: MECL-75 PO (01:24)
--- NOTE | 2021-02-17 04:06 | EKG ---
[facility] [address] [place] [address] Test Date: 2021-02-16 Test Time: 23:41:35 Pat Name: MART TAVERAS Department: Room: Gender: F [employer]ist[employer] Server: : 1955 Requested By: JANIA JESUS Order Number: [id number] Reading MD: Measurements Intervals [place] Rate: 67 P: 41 [place]: 158 QRS: 28 QRSD: 80 T: 29 QT: 386 QTc: 411 Interpretive Statements SINUS RHYTHM LEFT ATRIAL ABNORMALITY ABNORMAL ECG RI6.02 No previous ECG available for comparison
== END 2021-02-17 01:30 | disposition home or self-care (01) ==
LOC: ER 22:54
DX: R42 Dizziness and giddiness (principal); I10 Essential (primary) hypertension; Z87.891 Personal history of nicotine dependence; Z98.890 Other specified postprocedural states; Z90.710 Acquired absence of both cervix and uterus; Z91.040 Latex allergy status; Z91.041 Radiographic dye allergy status; Z88.0 Allergy status to penicillin; Z88.8 Allergy status to other drugs, medicaments and biological substances
CPT/HCPCS: 36415; 80053; 84484; 85025; 93005; 96360; 99285; J7040; J8597

== ENCOUNTER → 2021-02-22 | Outpatient (CLI) | payer OTHER ==
[2021-02-17 01:22] VITALS: BP 161/72
[~2021-02-22] MED LIST changes: +CHOL500050 PO; +CIPR500T94 PO; +FLUT1DIS3 IH; +IBUP-571 PO; +MECL-75 PO; +TRAM50TA PO
--- NOTE | 2021-02-22 12:30 | EKG ---
[facility] [address] [place] [address] Test Date: 2021-02-22 Test Time: 12:26:32 Pat Name: MART TAVERAS Department: Room: Gender: F Behavioral Health Consultant: : 1955 Requested By: JOSELIN HENSLEY Order Number: [id number] Reading MD: Jake Hutchison Measurements Intervals [place] Rate: 61 P: 62 [place]: 160 QRS: 43 QRSD: 88 T: 31 QT: 414 QTc: 422 Interpretive Statements SINUS RHYTHM MILD NON SPECIFIC T WAVE CHANGES RI6.02 Compared to ECG 02/16/2021 23:41:35 Atrial abnormality no longer present Electronically Signed On 02-23-2021 13:50:25 CDT by Jake Hutchison
--- NOTE | 2021-02-22 17:30 | RAD ---
XR CHEST 2V History: Reason: HX SARCOIDOSIS; PRESURG EVAL KNEE REPLACEMENT / Spl. Instructions: / History: Comparison: AP chest April 10, 2019. Findings: The cardiomediastinal silhouette is normal. Pulmonary vasculature is normal. The lungs are clear. No pleural effusion or pneumothorax is seen. There is no acute bone abnormality. IMPRESSION: No acute cardiopulmonary process. Electronically signed by: Josh Aguilar MD (02/22/2021 5:28 PM) [id number]
[2021-02-22 22:12] LABS: HEMOGLOBIN A1C 5.9 % (4.8-5.6)
== END ==
LOC: SURGPAT 11:03
PROVIDERS: ATTEND Orthopaedic Surgery
DX: Z01.818 Encounter for other preprocedural examination (principal); M17.12 Unilateral primary osteoarthritis, left knee; I10 Essential (primary) hypertension
CPT/HCPCS: 36415; 71046; 82306; 83036; 85610; 85651; 85730; 87641; 93005

== ENCOUNTER 2021-02-26 00:29 | Emergency (ER) | payer OTHER ==
[~2021-02-26] VITALS: Ht 167.6 cm; Wt 73.6 kg
[~2021-02-26 00:29] MED LIST changes: -CIPR500T94 PO; -TRAM50TA PO
[2021-02-26 01:22] LABS: BILIRUBIN,URINE NEGATIVE (NEG); CLARITY,URINE CLEAR; COLOR,URINE YELLOW; NITRITE,URINE NEGATIVE (NEG); PH,URINE 5.5 (<5.0-8.0); PROTEIN,URINE NEGATIVE (NEG-TRACE); UROBILINOGEN,URINE 0.2 mg/dL (0.2 mg/dL)
[2021-02-26 01:31] LABS: BACTERIA,URINE 0 /HPF (0-FEW); RBC,URINE 0 /HPF (0-2)
--- NOTE | 2021-02-26 01:40 | PHYS DOC ---
Past Medical History Past Medical History: Diverticulitis, Hypertension, Other Additional Past Medical Histor: LUPUS, DJD, PAT, Sarcoidosis Past Surgical History: Hip Replacement, Hysterectomy, Other Additional Past Surgical Histo: RIGHT HIP , D&C, HERNIA REPAIR Smoking Status: Former Smoker Alcohol Use: Occasionally Drug Use: None General Adult EDM: Chief Complaint: ABDOMINAL PAIN HPI: HPI: 65-year-old female presents to the emergency department for left lower quadrant pain that started a little over a week ago. The patient states that it feels like diverticulitis which she has had in the past. The patient has a history of lupus and high blood pressure. For her lupus she has been on steroids for many years, but because she is anticipating to have a knee surgery in 2 weeks she has been tapering off her medications for the past month. The patient denies any nausea vomiting or diarrhea, but does complain of looser stools than normal. Abdominal pain is localized to left lower quadrant pain but she does have a tender abdomen throughout her abdomen. The patient was in the emergency room a week ago for vertigo for which she was treated for, but does not think this is associated with that whatsoever. Patient states that she has had diverticulitis flareups in the past and this feels similar to it usually does and her doctors give her antibiotics and it helps relieve the pain. 3 hours before coming to the emergency department the patient took 600 mg of ibuprofen, but this did not give significant relief to the patient. Review of Systems: Review of Systems: Constitutional: Denies fever or chills Eyes: Denies redness or eye pain HENT: Denies nasal congestion or sore throat Respiratory: Denies cough or shortness of breath Cardiovascular: Denies chest pain or palpitations GI: Reports abdominal pain denies nausea, vomiting : Denies dysuria or hematuria Musculoskeletal: Denies back pain or joint pain Integument: Denies rash or skin lesions Neurologic: Denies headache, focal weakness or sensory changes Complete systems were reviewed and found to be within normal limits, except as documented in this note. Heart Score: Risk Factors: Risk Factors: DM, Current or recent (<one month) smoker, HTN, HLP, family hist ory of CAD, obesity. Risk Scores: Score 0 - 3: 2.5% MACE over next 6 weeks - Discharge Home Score 4 - 6: 20.3% MACE over next 6 weeks - Admit for Clinical Observation Score 7 - 10: 72.7% MACE over next 6 weeks - Early Invasive Strategies Current Medications: Current Medications Medications (Trade) Dose Ordered Sig/Codi Start Time Stop Time Status Last Admin Dose Admin Fentanyl Citrate (Fentanyl 2ml Vial) 50 mcg 1X ONCE 02/26/21 02:00 02/26/21 02:01 Sodium Chloride 1,000 ml @ 1,000 mls/hr 1X ONCE 02/26/21 02:00 02/26/21 02:59 Allergies: Allergies: Allergies Coded Allergies Type Severity Reaction Last Updated Verified latex Allergy Severe SORES AND BLEEDING 02/22/21 Yes Iodinated Contrast Media Allergy Intermediate HIVES, RASH 02/22/21 Yes Penicillins Allergy Intermediate hives, rash 02/22/21 Yes I S O L A T I O N *CONTACT* Allergy Unknown mrsa nares 02/22/21 Yes Physical Exam: PE: Constitutional: Well developed, well nourished, no acute distress, non-toxic appearance HENT: Normocephalic, atraumatic Eyes: PERRL, EOMI, conjunctiva normal, no discharge Neck: Normal range of motion, no tenderness, supple Lungs & Thorax: No respiratory distress, equal chest rise and fall Abdomen: Soft, tenderness most significant in the lower left quadrant. Diffuse slight tenderness throughout abdomen Skin: Warm, dry, no erythema, no rash Back: No tenderness, no CVA tenderness Extremities: No tenderness, ROM intact, no edema Neurologic: Alert and oriented X 3, normal motor function, normal sensory function, no focal deficits noted Psychologic: Affect normal, judgment normal Current Patient Data: Labs: Laboratory Tests Test 02/26/21 00:40 POC Urine HCG, Qualitative Hcg negative (Negative) Vital Signs: Vital Signs Date Time Temp Pulse Resp B/P (MAP) Pulse Ox O2 Delivery O2 Flow Rate FiO2 02/26/21 01:06 98.4 79 16 135/63 (87) 100 Room Air 98.4 EKG: EKG: [] Radiology/Procedures: Radiology/Procedures: [] Course & Med Decision Making: Course & Med Decision Making 65-year-old female presented to the emergency department for lower left quadrant pain that presented over a week ago. The patient has history of diverticulitis and states that this feels like a flareup of diverticulitis like she has had previously. The patient also has other substantial medical problems such as lupus and and hypertension for which she is on medication. Although, because she is preparing for a full knee replacement surgery she has been tapering off her normal medications such as prednisone. The patient took 600 mg of ibuprofen 3 hours before she came to the emergency room and was still in substantial pain. Patient denied any blood in stool and also denied any nausea or vomiting or diarrhea. The patient has been able to have normal stools. On physical exam the patient was tender diffusely but most significantly lower left quadrant. Patient has had a total hysterectomy, oophorectomy and appendectomy. Because of patient's recent decrease use of medication we decided to do a CT without contrast of the abdomen (because she is allergic to contrast dye), give her a liter of fluid. Patient's vitals were all within normal limits as well. Patient was afebrile. CT revealed that the patient had mild diverticulitis but without any perforations or ischemia. We decided that the patient on antibiotics for her diverticulitis and give her tramadol with Tylenol for pain control for home. Patient was given a note for 3 days of sick leave from work and advised to return to the emergency room or her primary care provider if symptoms do not get better within the next 5 days. Patient stable for discharge with outpatient follow-up with PCP. Discussed findings and plan with patient, who acknowledges understanding and agreement. Terrie Disclaimer: Terrie Disclaimer: This electronic medical record was generated, in whole or in part, using a voice recognition dictation system. Departure Departure Impression: Primary Impression: Diverticulitis Disposition: 01 DC HOME SELF CARE/HOMELESS Condition: STABLE Referrals: NOMI DAVIS (PCP) ALEXA PULLIAM MD Patient Instructions: Diverticulitis, [id number] Scripts Tramadol Hcl (TRAMADOL HCL) 50 Mg Tablet 50 MG PO Q6HRS PRN for PAIN, #14 TAB Take each tablet with one (1) regular strength Tylenol 325mg Prov: LIVE PETERS DO 02/26/21 Metronidazole (FLAGYL) 500 Mg Tablet 500 MG PO TID for 7 Days, #21 TAB Prov: LIVE PETERS DO 02/26/21 Ciprofloxacin Hcl (CIPRO) 500 Mg Tablet 1 TAB PO BID for 7 Days, #14 TAB 0 Refills Prov: ILVE PETERS DO 02/26/21 LIVE PETERS DO Feb 26, 2021 01:40
[2021-02-26] MEDS ORDERED: fentaNYL PF VIAL 100 MCG/2 ML VIAL IV ONE (02:00)
[2021-02-26] MEDS ORDERED: IV NORMAL SALINE 1000ML BAG 1,000 ML IV ONE (02:00)
[2021-02-26 02:11] LABS: BASO % 1 % (0-3); EOS # 0.1 x10^3/uL (0.0-0.7); EOS % 1 % (0-3); HEMATOCRIT 36.9 % (36.0-47.0); HEMOGLOBIN 12.3 g/dL (12.0-15.5); LYMPH # 1.3 x10^3/uL (1.0-4.8); LYMPH % 14 % (24-48); MEAN CORPUSCULAR HEMOGLOBIN 28 pg (25-35); MEAN CORPUSCULAR HGB CONC 33 g/dL (31-37); MEAN CORPUSCULAR VOLUME 84 fL (79-100); MONO # 0.5 x10^3/uL (0.0-1.1); MONO % 5 % (0-9); NEUT # 7.4 x10^3/uL (1.8-7.7); NEUT % 80 % (31-73); PLATELET COUNT 250 x10^3/uL (140-400); RED BLOOD COUNT 4.38 x10^6/uL (3.50-5.40); RED CELL DISTRIBUTION WIDTH 14.2 % (11.5-14.5); WHITE BLOOD COUNT 9.2 x10^3/uL (4.0-11.0)
--- NOTE | 2021-02-26 02:13 | RAD ---
CT ABDOMEN+PELVIS WO History: Reason: LLQ pain, evaluation for diverticulitis / Spl. Instructions: / History: Technique: Noncontrast examination of the abdomen and pelvis. Coronal and sagittal reconstructions we re performed. Exposure: One or more of the following individualized dose reduction techniques were utilized for thi s examination: 1. Automated exposure control 2. Adjustment of the mA and/or kV according to patient size 3. Use of iterative reconstruction technique. Comparison: December 31, 2017 Findings: Lower chest: No consolidation or pleural effusion. Abdomen and pelvis: The liver, spleen, adrenal glands, pancreas and gallbladder are unremarkable. Rig ht superior renal cyst measures 1 cm. No hydronephrosis. Decompressed urinary bladder. Sigmoid colonic wall thickening with inflamed diverticula and adjacent fat stranding. No perforation. No abscess. Additional colonic diverticulosis. Evaluation of the pelvis and appendix is severely deg raded by beam hardening artifact from right hip arthroplasty. No evidence of bowel obstruction. Small lymph nodes within the right lower quadrant. No ascites. Bones: Right total hip arthroplasty. Multilevel lumbar spondylosis. Impression: 1. Acute sigmoid mild diverticulitis. Electronically signed by: Jake De La Cruz DO (02/26/2021 2:11 AM) [facility]
[2021-02-26 02:19] LABS: CALCIUM 8.8 mg/dL (8.5-10.1); CREATININE 0.9 mg/dL (0.6-1.0); GFR 76.3; POTASSIUM 3.9 mmol/L (3.5-5.1)
[2021-02-26 02:25] LABS: ALBUMIN 3.7 g/dL (3.4-5.0); TOTAL BILIRUBIN 0.5 mg/dL (0.2-1.0); TOTAL PROTEIN 7.4 g/dL (6.4-8.2)
[2021-02-26] MEDS ORDERED: TRAM50TA PO (02:54)
[2021-02-26] MEDS ORDERED: METR500T PO (02:54)
[2021-02-26] MEDS ORDERED: CIPR500T94 PO (02:54)
[2021-02-26] MEDS ORDERED: metroNIDAZOLE 500 MG TABLET PO ONE (03:00)
[2021-02-26] MEDS ORDERED: CIPROFLOXACIN HCL 250 MG TABLET. PO ONE (03:00)
[2021-02-26] MEDS ORDERED: traMADol 50 MG TABLET PO ONE (03:30)
[2021-02-26 03:34] VITALS: BP 144/67
== END 2021-02-26 03:43 | disposition home or self-care (01) ==
LOC: ER 00:29
DX: K57.92 Diverticulitis of intestine, part unspecified, without perforation or abscess without bleeding (principal); R10.32 Left lower quadrant pain; R42 Dizziness and giddiness; I10 Essential (primary) hypertension; Z87.891 Personal history of nicotine dependence; Z90.710 Acquired absence of both cervix and uterus; Z98.890 Other specified postprocedural states; Z88.1 Allergy status to other antibiotic agents; Z91.041 Radiographic dye allergy status; Z91.040 Latex allergy status
CPT/HCPCS: 36415; 74176; 80053; 81001; 81025; 83690; 83735; 85025; 87086; 96361; 96374; 99285; J3010; J7030

== ENCOUNTER → 2021-03-25 | Outpatient (CLI) | payer OTHER ==
[2021-02-26 03:34] VITALS: BP 144/67
[~2021-03-25] MED LIST changes: +CIPR500T94 PO; +TRAM50TA PO
== END ==
LOC: LAB 14:02
PROVIDERS: ATTEND Orthopaedic Surgery
DX: Z01.812 Encounter for preprocedural laboratory examination (principal); Z20.822 Contact with and (suspected) exposure to COVID-19
CPT/HCPCS: 87641; U0003; U0005

== ENCOUNTER 2021-03-29 09:42 | Observation (INO) | payer OTHER ==
[~2021-03-29] VITALS: Ht 167.6 cm; Wt 75.5 kg
[~2021-03-29 09:42] MED LIST changes: +DEXAMETHASONE SOD PHOS 4 MG/ML VIAL ONE; +GABAPENTIN 300 MG CAPSULE. PO PRN; +IV RINGERS,LACTATED 1000ML 1,000 ML IV SCH; +LIDOCAINE 2% PF 5 ML VIAL. ONE; +MELOXICAM 7.5 MG TABLET PO PRN; +MORPHINE SULFATE 5 MG, KETOROLAC 30MG VIAL 30 MG, ROPIVacaine 0.5% PF 60 ML, EPINEPHrin... INT ART ONE; +ONDANSETRON PF 4 MG/2 ML VIAL. ONE; +PROCHLORPERAZINE 10 MG/2 ML VIAL. IVP PRN; +PROPOFOL 10 MG/ML (20ML) VIAL. IV ONE; +TRANEXAMIC ACID in NS IVPB 50 ML INJ ONE; +ceFAZolin SODIUM IV Push 1 GM VIAL. IVP PRN; +fentaNYL PF VIAL 100 MCG/2 ML VIAL IVP PRN; +fentaNYL PF VIAL 100 MCG/2 ML VIAL ONE
--- NOTE | 2021-03-29 10:07 | PREOP HP ---
DATE OF SERVICE: 03/29/2021 CHIEF COMPLAINT: Left knee degenerative joint disease. HISTORY OF PRESENT ILLNESS: This is a pleasant 65-year-old female who is planned for surgery for left knee replacement really for a couple of years and has been delayed for different problems, most recently diverticulitis. She had previously had multiple injections, bracing, that became ineffective when the mainly medial-sided pain became more laterally. She was delayed initially by some sarcoidosis and treatment by Pulmonology in the interim and she continues to be on her feet all the time due to her job. PAST MEDICAL HISTORY: Significant for lupus, hypertension, diverticulitis, osteopenia, Raynaud's disease, reflux disease. DVT in her left leg in 1998 as well. PAST SURGICAL HISTORY: Right total hip replacement, hysterectomy, removal of her uterus due to fibroids. FAMILY HISTORY: Mother , thyroid cancer. Father of natural causes. Brother has prostate cancer and hypertension in her sister. SOCIAL HISTORY: She quit smoking in 1974. Rare alcohol consumption. . No drug use. MEDICATIONS: List is reviewed. ALLERGIES: INCLUDE PENICILLIN WHICH GIVES HER A RASH, LATEX ALLERGY WELL AND IODINE CONTRAST THAT GAVE HER HIVES, but she says iodine on her skin has been no problem. REVIEW OF SYSTEMS: Negative for any recent chest pain, shortness of breath, fever, chills, constitutional symptoms or any of her diverticulitis symptoms, which have now resolved. PHYSICAL EXAMINATION: VITAL SIGNS: Per admission sheet. HEENT: Atraumatic, normocephalic. HEART: Regular rate and rhythm. LUNGS: Clear to auscultation bilaterally. ABDOMEN: Benign. MUSCULOSKELETAL: On examination of the left knee, she is tender over the medial more so than lateral joint line. Negative Simran's. Ligaments are grossly stable to examination. She does have slight varus and good patellofemoral tracking and moderate crepitus. Normal examination of the contralateral knee, bilateral hips and ankles. MRI of the left knee shows degradation in the ACL, severe medial compartment change with bony spurring, varus deformity and some chondromalacia in the lateral compartment. ASSESSMENT: Degenerative arthritis, left knee. TREATMENT PLAN: I went over with her that she would be more a candidate for total knee arthroplasty rather than a unicondylar due to her lateral compartment degenerative change and some degeneration of the ACL. We went through risks, benefits, postoperative course of the procedure including the possibility of infection, nerve or blood vessel damage, premature wear or loosening, continued pain, medical or other, anesthetic complications among others. All her questions were answered. She wished to proceed with surgical evaluation and treatment and will undergo [facility] Observation to follow. SHAQUILLE DR: Nolberto TID: [id number]
[2021-03-29] MEDS ORDERED: CHOL500050 PO (10:21)
[2021-03-29] MEDS ORDERED: VANCOMYCIN 1 GM VIAL. ONE (10:29)
[2021-03-29] MEDS ORDERED: diphenhydrAMINE 50 MG/ML VIAL IVP PRN (10:45)
[2021-03-29] MEDS ORDERED: ZOLPIDEM 5 MG TABLET. PO PRN (10:45)
[2021-03-29] MEDS: IV NORMAL SALINE 1000ML BAG 1,000 ML IV SCH (10:45)
[2021-03-29] MEDS ORDERED: DEXTROSE 50% 25 GM / 50ML DISP.SYRIN. IV PRN (10:45)
[2021-03-29] MEDS ORDERED: AMITRIPTYLINE HCL 25 MG TABLET. PO PRN (10:45)
[2021-03-29] MEDS ORDERED: CALCIUM CARBONATE 500 MG TAB.CHEW PO PRN (10:45)
[2021-03-29] MEDS ORDERED: ACETAMINOPHEN 500 MG TABLET PO ONE (10:45)
[2021-03-29] MEDS ORDERED: fentaNYL PF VIAL 100 MCG/2 ML VIAL IVP PRN (10:45)
[2021-03-29] MEDS ORDERED: 0.9 % SODIUM CHLORIDE 10 ML DISP.SYRIN. IV PRN (10:45)
[2021-03-29] MEDS ORDERED: PROCHLORPERAZINE 5 MG TABLET. PO PRN (10:45)
[2021-03-29] MEDS ORDERED: MORPHINE SULFATE 2 MG/ML VIAL. IVP PRN (10:45)
[2021-03-29] MEDS ORDERED: MIDAZOLAM HCL/PF 2 MG/2 ML VIAL. ONE (10:48)
[2021-03-29 10:58] LABS: PROTHROMBIN TIME PATIENT 13.2 SEC (11.7-14.0)
[2021-03-29] MEDS ORDERED: ceFAZolin SODIUM IV Push 1 GM VIAL. IVP ONE (10:59)
[2021-03-29] MEDS ORDERED: SEVOFLURANE > 120 MINUTES. IH ONE (11:01)
[2021-03-29] MEDS ORDERED: ePHEDrine PF IN SALINE 50 MG/10 ML SYRINGE. IV ONE (11:05)
[2021-03-29] MEDS ORDERED: fentaNYL PF VIAL 100 MCG/2 ML VIAL ONE ×2 (11:11→12:40)
[2021-03-29] MEDS: MULTIVITAMIN with MINERAL TABLET. PO SCH (12:00)
[2021-03-29] MEDS: ONDANSETRON PF 4 MG/2 ML VIAL. IVP SCH ×3 (12:00→23:51)
[2021-03-29] MEDS: HYDROXYCHLOROQUINE 200 MG TABLET PO SCH ×2 (12:00→21:12)
[2021-03-29] MEDS: BUDESONIDE 0.5 MG/2 ML NEBU. NEB SCH ×2 (12:00→20:22)
[2021-03-29] MEDS: hydroCHLOROthiazide 12.5 MG CAPSULE PO SCH ×2 (12:00→17:28)
[2021-03-29] MEDS: ALBUTEROL SULFATE 2.5 MG/3 ML NEBU. NEB SCH ×2 (12:00→20:22)
[2021-03-29] MEDS: ONDANSETRON ODT 4 MG TAB.RAPDIS. PO SCH ×3 (12:00→23:51)
--- NOTE | 2021-03-29 12:43 | PDOC4 ---
Operative Note Operative Note Date of surgery: 03/29/2021 Preoperative diagnosis: Degenerative left knee Postoperative diagnosis: Same Operative procedure: Left total knee arthroplasty Surgeon: Tenisha Assist: Rafael karimi assist Anesthesia: General Estimated blood loss: 25 cc Complications: None Specimens: Cartilage surfaces to pathology Operative indications: Please see my dictated preoperative history and physical for detailed operative indications and note that we had reviewed preoperatively risks benefits postoperative course of the surgery including the possibility of infection continued pain nerve or blood vessel damage premature wear or loosening instability medical or other anesthetic complications among others and she agrees to proceed with surgical evaluation and treatment having given informed consent Operative text: Patient was identified procedure verified patient placed in the supine position on the operating table. After adequate amounts of general anesthesia were administered the left lower extremity was prepped and draped in standard sterile fashion with a thigh tourniquet and after timeout was performed patient procedure identified and verified the left lower extremity was exsanguinated by Esmarch bandage tourniquet inflated to 300 mmHg and a midline incision was made followed by a medial parapatellar approach fat pad was excised and patella everted and the distal femur drilled to accommodate the intramedullary cutting guide which was set at 5 degrees with a standard distal cut. Menisci and cruciate ligaments were excised and a tibial cut was made using the extra medullary cutting guide aligned with the second toe and alignment verified with a spacer and drop amari. JOSELIN HENSLEY MD March 29, 2021 12:43
[2021-03-29] MEDS ORDERED: MORPHINE SULFATE 2 MG/ML VIAL. ONE ×2 (12:51→13:09)
[2021-03-29] MEDS: MORPHINE SULFATE 2 MG/ML VIAL. IVP PRN ×3 (12:59→14:08)
[2021-03-29] MEDS ORDERED: HYDROmorphone 2 MG/ML VIAL ONE (13:12)
[2021-03-29] MEDS: HYDROmorphone 2 MG/ML VIAL IVP PRN ×2 (13:18→14:40)
--- NOTE | 2021-03-29 13:25 | RAD ---
INDICATION: Reason: POST OP KNEE REPLACEMENT / Spl. Instructions: / History: COMPARISON: December 2020 IMPRESSION: Left knee: 2 views obtained. Arthroplasty changes without periprosthetic fracture or dislocation. Martin ma and air within the soft tissues as typically seen postoperatively. Electronically signed by: Javy Fernandes MD (03/29/2021 1:23 PM) [id number]
[2021-03-29 14:45] VITALS: BP 133/66
--- NOTE | 2021-03-29 14:46 | NUR ---
Arrived to unit by bed from PACU. Awakens easily but falls back to sleep. Left leg elevated on pillow with ice pack. Able to wiggle toes easily, warm touch and pedal pulses + bilaterally. O2 sat on room air 80's placed O2 at 2l per n/c. O2 sat rechecked mid 90's. IVF's intact and infusing. ANTONIO and SCD on right leg and NORY on right foot. Oriented to room and controls. Side rails up x's 2 with call light in reach. at bedside.
[2021-03-29 15:15] VITALS: BP 131/66
[2021-03-29 15:45] VITALS: BP 149/64
[2021-03-29] MEDS ORDERED: WARFARIN 7.5 MG TABLET. PO ONE (16:00)
[2021-03-29 16:15] VITALS: BP 143/68
[2021-03-29] MEDS: SENNOSIDES/DOCUSATE 8.6/50MG TABLET. PO SCH (17:25)
[2021-03-29] MEDS: LISINOPRIL 20 MG TABLET PO SCH (17:26)
[2021-03-29] MEDS: FERROUS SULFATE 325 MG TABLET. PO SCH (17:28)
[2021-03-29] MEDS: ceFAZolin SODIUM IV Push 1 GM VIAL. IVP SCH ×2 (17:30→23:51)
[2021-03-29] MEDS ORDERED: NON FORMULARY ITEM (Fluticasone/Salmeterol (Advair 250-50 Diskus) 1 INH) IH SCH (21:00)
[2021-03-29 23:00] VITALS: BP 118/59
[2021-03-30] MEDS: oxyCODONE IR 5 MG TABLET PO PRN ×4 (02:43→20:57)
[2021-03-30 03:00] VITALS: BP 104/62
[2021-03-30] MEDS: ceFAZolin SODIUM IV Push 1 GM VIAL. IVP SCH (05:51)
[2021-03-30] MEDS: traMADol 50 MG TABLET PO SCH ×3 (05:52→17:41)
[2021-03-30] MEDS: ONDANSETRON ODT 4 MG TAB.RAPDIS. PO SCH (05:52)
[2021-03-30] MEDS: GABAPENTIN 100 MG CAPSULE. PO SCH ×3 (05:52→22:05)
[2021-03-30] MEDS: ONDANSETRON PF 4 MG/2 ML VIAL. IVP SCH (05:52)
[2021-03-30] MEDS ORDERED: MAGNESIUM HYDROXIDE 2,400 MG/30 ML ORAL.SUSP. PO PRN (06:00)
[2021-03-30 07:17] VITALS: BP 116/54
[2021-03-30] MEDS: BUDESONIDE 0.5 MG/2 ML NEBU. NEB SCH ×2 (07:19→20:49)
[2021-03-30] MEDS: ALBUTEROL SULFATE 2.5 MG/3 ML NEBU. NEB SCH ×2 (07:19→20:49)
[2021-03-30 07:54] LABS: PROTHROMBIN TIME PATIENT 14.5 SEC (11.7-14.0)
[2021-03-30] MEDS: MULTIVITAMIN with MINERAL TABLET. PO SCH (08:55)
[2021-03-30] MEDS: FERROUS SULFATE 325 MG TABLET. PO SCH ×2 (08:56→17:41)
[2021-03-30] MEDS: SENNOSIDES/DOCUSATE 8.6/50MG TABLET. PO SCH (08:56)
[2021-03-30] MEDS: MELOXICAM 7.5 MG TABLET PO SCH (08:56)
[2021-03-30] MEDS: HYDROXYCHLOROQUINE 200 MG TABLET PO SCH ×2 (09:00→20:56)
[2021-03-30] MEDS: LISINOPRIL 20 MG TABLET PO SCH (09:00)
[2021-03-30] MEDS: ACETAMINOPHEN 500 MG TABLET PO SCH ×3 (09:00→20:56)
[2021-03-30] MEDS: IV NORMAL SALINE 1000ML BAG 1,000 ML IV SCH (10:45)
[2021-03-30] MEDS ORDERED: ONDANSETRON ODT 4 MG TAB.RAPDIS. PO PRN (12:00)
[2021-03-30] MEDS ORDERED: ONDANSETRON PF 4 MG/2 ML VIAL. IVP PRN (12:00)
--- NOTE | 2021-03-30 13:56 | NUR ---
Pharmacy Warfarin Dosing Note S:Pharmacy consulted to assist with anticoagulation therapy started 03/29/21 with target INR: 1.6 - 2.5 O:MART TAVERAS is a 65 year old F with TKA LABS: Last INR: 1.2 Last HGB: Last HCT: Last PLT: Last dose of 7.5 mg given on 03/29/21 at 1725 Previous Regimen: Vitamin K given: Drug Interaction Changes: Ongoing Drug Interactions: A:INR of 1.2 is below desired range. Target range for this patient is: 1.6 - 2.5 P: Warfarin dose: 5 mg Today at 1600 Bridge Therapy: Next INR due IN AM Pharmacy anticoagulation service will continue to follow. SABRINA HAMEED, [facility], 03/30/21 0732
[2021-03-30] MEDS ORDERED: WARFARIN 5 MG TABLET. PO ONE (16:00)
[2021-03-30] MEDS ORDERED: BISACODYL 10 MG SUPP.RECT. PR PRN (16:00)
[2021-03-30 18:13] VITALS: BP 118/52
--- NOTE | 2021-03-30 20:23 | PDOC ---
PROGRESS NOTES Date of Service DATE: 03/30/21 TIME: 20:20 Subjective Subjective Problems overnight: Knee is a bit sore but overall doing well Objective Vital Signs Vital Signs Date Time Temp Pulse Resp B/P (MAP) Pulse Ox O2 Delivery O2 Flow Rate FiO2 03/30/21 20:05 Room Air 03/30/21 18:13 97.3 84 20 118/52 (74) 96 97.3 03/30/21 07:21 1.0 Physical Exam Distal neurovascular status intact Eli dressing intact good early range of motion Labs Laboratory Tests Test 03/29/21 10:10 03/30/21 06:30 Prothrombin Time 13.2 SEC (11.7-14.0) 14.5 SEC (11.7-14.0) Prothromb Time International Ratio 1.0 (0.8-1.1) 1.2 (0.8-1.1) Activated Partial Thromboplast Time 31 SEC (24-38) Laboratory Tests Test 03/30/21 06:30 Prothrombin Time 14.5 SEC (11.7-14.0) Prothromb Time International Ratio 1.2 (0.8-1.1) Imaging X-rays show excellent sizing and alignment of total knee arthroplasty Assessment Assessment POD#1 total knee arthroplasty Plan Plan of Care Continue mobilize weightbearing as tolerated with physical therapy Warfarin anticoagulation per pharmacy Likely home with home health on discharge Justicifation of Admission Dx: Justifications for Admission: Justification of Admission Dx: N/A JOSELIN HENSLEY MD March 30, 2021 20:23
[2021-03-31] MEDS: traMADol 50 MG TABLET PO SCH ×3 (00:23→11:57)
[2021-03-31] MEDS: ACETAMINOPHEN 500 MG TABLET PO SCH ×3 (03:11→14:33)
[2021-03-31 05:45] VITALS: BP 145/66
[2021-03-31] MEDS: GABAPENTIN 100 MG CAPSULE. PO SCH ×2 (05:45→14:32)
[2021-03-31] MEDS: BUDESONIDE 0.5 MG/2 ML NEBU. NEB SCH (07:04)
[2021-03-31] MEDS: ALBUTEROL SULFATE 2.5 MG/3 ML NEBU. NEB SCH (07:04)
[2021-03-31 07:58] LABS: PROTHROMBIN TIME PATIENT 16.3 SEC (11.7-14.0)
[2021-03-31] MEDS: FERROUS SULFATE 325 MG TABLET. PO SCH (08:00)
[2021-03-31] MEDS: LISINOPRIL 20 MG TABLET PO SCH (08:10)
[2021-03-31] MEDS: HYDROXYCHLOROQUINE 200 MG TABLET PO SCH (08:10)
[2021-03-31] MEDS: MULTIVITAMIN with MINERAL TABLET. PO SCH (08:11)
[2021-03-31] MEDS: hydroCHLOROthiazide 12.5 MG CAPSULE PO SCH (08:11)
[2021-03-31] MEDS: SENNOSIDES/DOCUSATE 8.6/50MG TABLET. PO SCH (08:11)
[2021-03-31] MEDS: oxyCODONE IR 5 MG TABLET PO PRN ×2 (08:12→14:33)
[2021-03-31] MEDS: MELOXICAM 7.5 MG TABLET PO SCH (08:12)
[2021-03-31 10:19] LABS: HEMATOCRIT 28.6 % (36.0-47.0); HEMOGLOBIN 9.3 g/dL (12.0-15.5)
[2021-03-31] MEDS ORDERED: OXYC5CAP PO (10:30)
--- NOTE | 2021-03-31 10:37 | DISCH ---
DISCHARGE INSTRUCTIONS Condition on Discharge Condition on Discharge: Stable Activity After Discharge Activity Instructions for Disc: Progressive ambulation Driving Instructions after Dis: No driving for 2 weeks Weight Bearing Status after Di: As tolerated Diet after Discharge Diet after Discharge: Regular Wound Incision Care Wound/Incision Care: Do not change dressing Community/Resources/Services Services at Discharge: PT EVALUATE & TREAT (May progress as symptomatically tolerated) Contacting the [facility] after DC Call your doctor for: Concerns you may have Follow-Up Follow up with: Dr. Steven or Sean 2 weeks postoperatively Treatment/Equipment after DC Adaptive Equipment Issued: None Warfarin Follow-Up Warfarin Follow UP: Warfarin dosage and testing per [facility] JOSELIN STEVEN MD March 31, 2021 10:37
--- NOTE | 2021-03-31 11:26 | NUR ---
Pharmacy Warfarin Dosing Note S:Pharmacy consulted to assist with anticoagulation therapy started 03/29/21 with target INR: 1.6 - 2.5 O:MART TAVERAS is a 65 year old F with TKA LABS: Last INR: 1.4 Last HGB: 9.3 Last HCT: 28.6 Last PLT: Last dose of 5 mg given on 03/29/21 at 1741 Previous Regimen: Vitamin K given: N Drug Interaction Changes: Ongoing Drug Interactions: A:INR of 1.4 is below desired range. Target range for this patient is: 1.6 - 2.5 P: Warfarin dose: 5 mg Today at 1400. Bridge Therapy: None Next INR due next Sunday. Pharmacy anticoagulation service will continue to follow. Parminder Guthrie RPH, 03/31/21 1127 Addendum: 03/31/21 at 1134 by Parminder Guthrie RPH PHA Next INR next Sunday.
[2021-03-31] MEDS ORDERED: WARF6TAB47 PO (12:11)
[2021-03-31] MEDS ORDERED: WARF-31 PO (12:11)
[2021-03-31] MEDS ORDERED: TRAM50TA PO (12:39)
[2021-03-31] MEDS ORDERED: WARFARIN 5 MG TABLET. PO ONE (14:00)
[2021-03-31 14:49] VITALS: BP 113/57
--- NOTE | 2021-03-31 16:00 | NUR ---
Reviewed discharge instructions;restrictions to activities of daily living such as bathing driving and follow up with Dr. Steven. discussed CHAITANYA care and follow up with Outpatient therapy. verbalized understanding of these instructions. maura at bedside; all questions answered
--- NOTE | 2021-03-31 16:00 | NUR ---
Reviewed written discharge instructions with Jodi. reviewed restrictions to activities of daily such as bathing, dressing medications and use walker. follow up with Dr. Steven and will go home with [facility]. scripts given. verbalized understanding of dismissal. awaiting daughter. Addendum: 03/31/21 at 1738 by ANISHA BRITO RN written on the wrong patient.
--- NOTE | 2021-03-31 16:15 | NUR ---
dismissed to home with ipad, cell phone scripts.
--- NOTE | 2021-03-31 16:30 | NUR ---
daughter here. reviewed discharge and follow up information. she verbalized understanding. dismissed to home Addendum: 03/31/21 at 1734 by ANISHA BRITO RN written on wrong patient came to pick her up. she was also doing outpatient and had her 1 appt tomorrow
--- NOTE | 2021-03-31 18:05 | NUR ---
called Yi at home. she forgot her clinical trial data manager for her cell phone and ipad . toothpaste and toothbrush. she will come tomorrow to case picker.
--- NOTE | 2021-04-04 09:10 | PATHOLOGY ---
[facility] Accession Number: [id number] . 01 Material submitted: . knee - LEFT KNEE BONE AND TISSUE. Modifiers: left . 01 Clinical history: . LEFT TKA DJD . 02 Diagnosis: Segments of bone and soft tissue, left total knee arthroplasty: - Degenerative arthritis. (JPM:juan c; 03/30/2021) MBR 03/30/2021 1535 Local . 02 Electronically signed: . Low Griffin MD, Pathologist NPI- [id number] . 01 Gross description: . Received in formalin labeled "Magali, Yi and left knee bone / tissue". Received are multiple hemispheric and irregular shaped bone fragments measuring in aggregate 10.0 x 9.5 x 3.0 cm. The meniscus is absent. The articular surfaces are smooth/worn with ridges and eburnations. The bone cortex is spongy/dense with congested pink pitting. The attached soft tissue is pink-hart and fibrous. Sand Molder sections of the bone and soft tissue are submitted in cassette A1 after decalcification.(J; 03/29/2021) BLJ/BLJ 03/30/2021 1534 Local . 02 Pathologist provided ICD-10: M17.12 . 02 CPT . 207768, [id number] Specimen Comment: A courtesy copy of this report has been sent to [phone] Specimen Comment: Report sent to Performed at: 01 [facility] [address] [id number] MD Junior Moise MD Phone: [phone] Performed at: 02 [facility] [address] [place], [place] [id number] MD Low Griffin MD Phone: [phone]
== END 2021-03-31 16:15 | disposition home or self-care (01) ==
LOC: SURG 09:42 → 4 SOUTHEST 10:36
PROVIDERS: ADMIT Orthopaedic Surgery; ATTEND Orthopaedic Surgery
DX: M17.12 Unilateral primary osteoarthritis, left knee (principal); I10 Essential (primary) hypertension; K57.92 Diverticulitis of intestine, part unspecified, without perforation or abscess without bleeding; M85.80 Other specified disorders of bone density and structure, unspecified site; I73.00 Raynaud's syndrome without gangrene; K21.9 Gastro-esophageal reflux disease without esophagitis; M32.9 Systemic lupus erythematosus, unspecified; Z86.718 Personal history of other venous thrombosis and embolism; Z87.891 Personal history of nicotine dependence; Z90.710 Acquired absence of both cervix and uterus; Z96.641 Presence of right artificial hip joint; Z96.652 Presence of left artificial knee joint; Z79.01 Long term (current) use of anticoagulants
CPT/HCPCS: 27447; 36415; 73560; 85014; 85018; 85610; 85730; 86850; 86900; 86901; 94640; 96374; 96375; 96376; 97116; 97150; 97162; 97166; 97530; 97535; A4213; A4930; A6223; A6253; A6258; A6402; A6450; A6550; C1713; C1755; C1776; G0378; G0379; J0171; J0690; J1100; J1170; J1885; J2250; J2270; J2405; J2704; J2795; J3010; J3370; J7613; J7626

== ENCOUNTER → 2021-04-19 | Outpatient (CLI) | payer OTHER ==
[2021-03-31 08:10] VITALS: BP 145/66
[~2021-04-19] MED LIST changes: -DEXAMETHASONE SOD PHOS 4 MG/ML VIAL ONE; -GABAPENTIN 300 MG CAPSULE. PO PRN; -IV RINGERS,LACTATED 1000ML 1,000 ML IV SCH; -LIDOCAINE 2% PF 5 ML VIAL. ONE; -MELOXICAM 7.5 MG TABLET PO PRN; -MORPHINE SULFATE 5 MG, KETOROLAC 30MG VIAL 30 MG, ROPIVacaine 0.5% PF 60 ML, EPINEPHrin... INT ART ONE; -ONDANSETRON PF 4 MG/2 ML VIAL. ONE; +OXYC5CAP PO; -PROCHLORPERAZINE 10 MG/2 ML VIAL. IVP PRN; -PROPOFOL 10 MG/ML (20ML) VIAL. IV ONE; -TRANEXAMIC ACID in NS IVPB 50 ML INJ ONE; +WARF-31 PO; +WARF6TAB47 PO; -ceFAZolin SODIUM IV Push 1 GM VIAL. IVP PRN; -fentaNYL PF VIAL 100 MCG/2 ML VIAL IVP PRN; -fentaNYL PF VIAL 100 MCG/2 ML VIAL ONE
[2021-04-19 17:18] LABS: PROTHROMBIN TIME PATIENT 17.1 SEC (11.7-14.0)
== END ==
LOC: LAB 16:45
PROVIDERS: ATTEND Orthopaedic Surgery
DX: Z79.01 Long term (current) use of anticoagulants (principal)
CPT/HCPCS: 36415; 85610

== ENCOUNTER → 2021-10-18 | Outpatient (CLI) | payer OTHER ==
[2021-03-31 08:10] VITALS: BP 145/66
[~2021-10-18] MED LIST changes: -LISI1TAB23 PO; +LISI1TAB35 PO
--- NOTE | 2021-10-18 13:40 | RAD ---
Bilateral digital screening 2-D and 3-D (tomosynthesis) mammogram: Reason for examination: Routine screening. Comparison is made to mammograms dated 09/25/2019 and 06/28/2018. Bilateral mammograms in CC and oblique projections were obtained with 2-D imaging and 3-D tomosynthes is imaging and reviewed on the workstation. Interpretation was made with the benefit of CAD. Findings: Breast density: Category C. The breasts are heterogeneously dense, which may obscure small masses. There are no suspicious masses, malignant appearing calcifications or architectural distortion. Impression: No evidence of malignancy. ASSESSMENT: BI-RADS 1. Recommendations: Routine screening mammograms. This patient's information has been entered into a reminder system for the patient to be notified wit h the results of her examination and a target date for the next mammogram. Your patient's mammogram demonstrates that she has dense breast tissue (breast density category C or D), which could hide abnormalities, and if she has other risk factors for breast cancer that have bee n identified, she might benefit from supplemental screening tests that may be suggested by you as her ordering physician. Dense breast tissue, in and of itself, is a relatively common condition. Therefo re, this information is not provided to cause undue concern, but rather to raise your awareness and t o promote discussion with your patient regarding the presence of other risk factors, in addition to d ense breast tissue. Electronically signed by: Nicol Fernandez MD (10/18/2021 1:38 PM) [id number]
== END ==
LOC: MAMMO 07:51
PROVIDERS: ATTEND Family Medicine
DX: Z12.31 Encounter for screening mammogram for malignant neoplasm of breast (principal)
CPT/HCPCS: 77063; 77067

== ENCOUNTER → 2021-10-31 | Outpatient (CLI) | payer OTHER ==
[2021-03-31 08:10] VITALS: BP 145/66
--- NOTE | 2021-10-31 16:05 | RAD ---
XR CHEST 2V History: Reason: SARCOIDOSIS. / Spl. Instructions: / History: Comparison: February 22, 2021 Findings: No consolidation or pleural effusion. Normal heart size. No pneumothorax. Impression: 1. No acute cardiopulmonary process. Electronically signed by: Jake De La Cruz DO (10/31/2021 4:02 PM) [id number]
== END ==
LOC: RAD 09:10
PROVIDERS: ATTEND Internal Medicine Critical Care Medicine
DX: D86.9 Sarcoidosis, unspecified (principal)
CPT/HCPCS: 71046

== ENCOUNTER → 2021-12-26 | Outpatient (CLI) | payer OTHER ==
[2021-03-31 08:10] VITALS: BP 145/66
[2021-12-26 09:42] LABS: BASO % 1 % (0-3); EOS # 0.1 x10^3/uL (0.0-0.7); EOS % 1 % (0-3); HEMATOCRIT 39.4 % (36.0-47.0); HEMOGLOBIN 12.8 g/dL (12.0-15.5); LYMPH # 2.9 x10^3/uL (1.0-4.8); LYMPH % 42 % (24-48); MEAN CORPUSCULAR HEMOGLOBIN 28 pg (25-35); MEAN CORPUSCULAR HGB CONC 32 g/dL (31-37); MEAN CORPUSCULAR VOLUME 86 fL (79-100); MONO # 0.3 x10^3/uL (0.0-1.1); MONO % 4 % (0-9); NEUT # 3.6 x10^3/uL (1.8-7.7); NEUT % 52 % (31-73); PLATELET COUNT 259 x10^3/uL (140-400); RED CELL DISTRIBUTION WIDTH 14.6 % (11.5-14.5); WHITE BLOOD COUNT 6.9 x10^3/uL (4.0-11.0)
[2021-12-26 10:13] LABS: ALBUMIN 3.9 g/dL (3.4-5.0); ALBUMIN/GLOBULIN RATIO 0.9 (1.0-1.7); C-REACTIVE PROTEIN 0.6 mg/L (0-3.3); CREATININE 0.8 mg/dL (0.6-1.0); GFR 87.1; POTASSIUM 3.8 mmol/L (3.5-5.1); TOTAL BILIRUBIN 0.2 mg/dL (0.2-1.0); TOTAL PROTEIN 8.4 g/dL (6.4-8.2)
[2021-12-26 10:16] LABS: CHOLESTEROL/HDL RATIO 2.5
[2021-12-26 23:08] LABS: RHEUMATOID FACTOR <10.0 IU/mL (<14.0)
[2021-12-27 18:11] LABS: ANA INTERP Negative (.)
== END ==
LOC: SPEC 09:23
PROVIDERS: ATTEND Family Medicine
DX: Z00.00 Encounter for general adult medical examination without abnormal findings (principal); E55.9 Vitamin D deficiency, unspecified; I10 Essential (primary) hypertension; M32.9 Systemic lupus erythematosus, unspecified
CPT/HCPCS: 36415; 80053; 80061; 82306; 83036; 84443; 85025; 85651; 86038; 86140; 86431

== ENCOUNTER → 2022-04-10 | Outpatient (CLI) | payer OTHER ==
[2021-03-31 08:10] VITALS: BP 145/66
--- NOTE | 2022-04-10 16:56 | RAD ---
XR CHEST 2V History: Reason: DYSPNEA / Spl. Instructions: / History: Comparison: October 31, 2021 Findings: No consolidation or pleural effusion. Normal heart size. No pneumothorax. Impression: 1. No acute cardiopulmonary process. Electronically signed by: Jake De La Cruz DO (04/10/2022 4:53 PM) [id number]
== END ==
LOC: RAD 13:46
PROVIDERS: ATTEND Family Medicine
DX: R06.00 Dyspnea, unspecified (principal)
CPT/HCPCS: 71046